=== PATIENT | female | born 1990 | race Hispanic/Latino ===

== ENCOUNTER 2019-02-21 23:20 | Emergency (ER) | payer SELFPAY ==
[2019-02-22] MEDS ORDERED: METHYLPREDNISOLONE 125 MG INJ ONE (00:19)
[2019-02-22] MEDS ORDERED: ALBUTEROL 2.5 MG/3 ML NEB SOL ONE (00:19)
[2019-02-22] MEDS ORDERED: IPRATROPIUM BROM 0.5MG/2.5ML ONE (00:19)
[2019-02-22] MEDS ORDERED: KETOROLAC 30 MG/ML INJ ONE (02:19)
--- NOTE | 2019-02-22 02:23 | ER ---
Nurse's Notes [facility] Name: Maria C Stokes Age: 28 yrs Sex: Female : 1990 Arrival Date: 02/21/2019 Time: 23:22 Bed 18 Private MD: Diagnosis: Asthma;costochondritis Presentation: 02/21 23:59 Presenting complaint: Patient states: she is having difficulty breathing symptoms bb started a couple of hours ago, she used an albuterol inhaler she got in [place] but it is not getting better. Transition of care: patient was not received from another setting of care. Onset of symptoms was February 22, 2019. Risk Assessment: Do you want to hurt yourself or someone else? Patient reports no desire to harm self or others. Initial Sepsis Screen: Does the patient meet any 2 criteria? No. Patient's initial sepsis screen is negative. Does the patient have a suspected source of infection? No. Patient's initial sepsis screen is negative. Care prior to arrival: None. 23:59 Method Of Arrival: Ambulatory bb 23:59 Acuity: JM 3 bb Triage Assessment: 02/22 00:06 General: Appears distressed, uncomfortable, Behavior is calm, cooperative, appropriate cc3 for age. Respiratory: Reports shortness of breath at rest on exertion Onset: The symptoms/episode began/occurred just prior to arrival, the patient has moderate shortness of breath. 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 - Social history:: Smoking status: unknown. - Ebola Screening: : No symptoms or risks identified at this time. Screenin:06 Abuse screen: Denies threats or abuse. Denies injuries from another. Nutritional cc3 screening: No deficits noted. Tuberculosis screening: No symptoms or risk factors identified. Fall Risk Ambulatory Aid- None/Bed Rest/Nurse Assist (0 pts). Gait- Normal/Bed Rest/Wheelchair (0 pts) Mental Status- Oriented to own ability (0 pts). Assessment: 00:06 Pain: Complains of pain in chest. Neuro: Level of Consciousness is awake, alert, obeys cc3 commands, Oriented to person, place, time, situation, Appropriate for age. Cardiovascular: Rhythm is regular. Respiratory: Airway is patent Respiratory effort is labored, Respiratory pattern is symmetrical, Breath sounds with wheezes bilaterally. GI: Abdomen is flat. : No signs and/or symptoms were reported regarding the genitourinary system. EENT: No signs and/or symptoms were reported regarding the EENT system. Derm: No signs and/or symptoms reported regarding the dermatologic system. Musculoskeletal: Circulation, motion, and sensation intact. Range of motion: intact in all extremities. 01:18 Reassessment: Patient appears in no apparent distress at this time. Patient and/or cc3 family updated on plan of care and expected duration. Pain level reassessed. Patient is alert, oriented x 3, equal unlabored respirations, skin warm/dry/pink. 02:40 Reassessment: Patient appears in no apparent distress at this time. Patient and/or cc3 family updated on plan of care and expected duration. Pain level reassessed. Patient is alert, oriented x 3, equal unlabored respirations, skin warm/dry/pink. Dr. Reyes discharged the patient home with prescription given. IV cannula removed and patient left ER vitally stable and ambulatory with her . Vital Signs: 00:02 BP 123 / 90; Pulse 87; Resp 14 S; Temp 98.7(O); Pulse Ox 99% on R/A; bb 01:51 BP 110 / 69; Pulse 103; Resp 20 S; Pulse Ox 98% on R/A; cc3 02:30 BP 112 / 67; Pulse 98; Resp 19 S; Pulse Ox 99% on R/A; cc3 ED Course: 02/21 23:22 Patient arrived in ED. es 02/22 00:01 Parvez Reyes MD is Attending Physician. tw4 00:01 Triage completed. bb 00:02 Arm band placed on Patient placed in an exam room, on a stretcher, on pulse oximetry. bb Family accompanied patient. 00:05 Inserted saline lock: 20 gauge in right antecubital area, using aseptic technique. cc3 00:06 Carrie Avina is Primary Nurse. cc3 00:06 Patient has correct armband on for positive identification. Bed in low position. Call cc3 light in reach. Side rails up X2. residential monitor on. Pulse ox on. NIBP on. 00:46 X-ray completed. Portable x-ray completed in exam room. Patient tolerated procedure kw well. 00:47 CXR XRAY In Process Unspecified. EDMS 02:40 No provider procedures requiring assistance completed. IV discontinued, intact, cc3 bleeding controlled, No redness/swelling at site. Pressure dressing applied. Administered Medications: 00:05 Drug: DuoNeb (3:1) (2.5 mg - 0.5 mg) 3 ml Route: Nebulizer; cc3 00:45 Follow up: Response: No adverse reaction; Marked relief of symptoms cc3 00:10 Drug: SOLU-Medrol 125 mg Route: IVP; Site: right antecubital; cc3 00:45 Follow up: Response: No adverse reaction; Marked relief of symptoms cc3 02:07 Drug: TORadol 30 mg Route: IVP; Site: right antecubital; cc3 02:30 Follow up: Response: No adverse reaction; Pain is decreased cc3 Outcome: 02:23 Discharge ordered by . tw4 02:40 Discharged to home ambulatory, with family. cc3 02:40 Condition: stable 02:40 Discharge instructions given to patient, family, Instructed on discharge instructions, follow up and referral plans. medication usage, Demonstrated understanding of instructions, follow-up care, medications, Prescriptions given X 3. 02:44 Patient left the ED. cc3 Signatures: Dispatcher [employer] EDWA Linette Sheppard Brenda, RN RN Kerri Foster Terrence, MD MD tw4 Carrie Avina cc3 Corrections: (The following items were deleted from the chart) 05:17 02:40 Reassessment: Patient appears in no apparent distress at this time. Patient cc3 and/or family updated on plan of care and expected duration. Pain level reassessed. Patient is alert, oriented x 3, equal unlabored respirations, skin warm/dry/pink. cc3
--- NOTE | 2019-02-22 02:23 | EDPHYS ---
Physician Documentation [facility] Name: Maria C Stokes Age: 28 yrs Sex: Female : 1990 Arrival Date: 02/21/2019 Time: 23:22 Bed 18 Private MD: ED Physician Parvez Reyes HPI: 02/22 06:23 This 28 yrs old Female presents to ER via Ambulatory with complaints of tw4 Breathing Difficulty, Chest Pain, Headache. 06:23 The patient has shortness of breath at rest. Onset: The symptoms/episode began/occurred tw4 today. Duration: The symptoms are continuous, and are unchanged since they started. The patient's shortness of breath has no apparent modifying factors. Severity of symptoms: At their worst the symptoms were moderate in the emergency department the symptoms are unchanged. The patient has not experienced similar symptoms in the past. 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 - Social history:: Smoking status: unknown. - Ebola Screening: : No symptoms or risks identified at this time. ROS: 06:23 Constitutional: Negative for fever, chills, and weight loss, Cardiovascular: Negative tw4 for chest pain, palpitations, and edema, Abdomen/GI: Negative for abdominal pain, nausea, vomiting, diarrhea, and constipation, Back: Negative for injury and pain, MS/Extremity: Negative for injury and deformity, Skin: Negative for injury, rash, and discoloration, Neuro: Negative for headache, weakness, numbness, tingling, and seizure. 06:23 Respiratory: Positive for cough, shortness of breath, wheezing, Negative for hemoptysis, orthopnea, pleurisy. Exam: 06:24 Constitutional: This is a well developed, well nourished patient who is awake, alert, tw4 and in no acute distress. Head/Face: Normocephalic, atraumatic. Eyes: Pupils equal round and reactive to light, extra-ocular motions intact. Lids and lashes normal. Conjunctiva and sclera are non-icteric and not injected. Cornea within normal limits. Periorbital areas with no swelling, redness, or edema. Chest/axilla: Normal chest wall appearance and motion. Nontender with no deformity. No lesions are appreciated. Cardiovascular: Regular rate and rhythm with a normal S1 and S2. No gallops, murmurs, or rubs. Normal PMI, no JVD. No pulse deficits. Abdomen/GI: Soft, non-tender, with normal bowel sounds. No distension or tympany. No guarding or rebound. No evidence of tenderness throughout. Back: No spinal tenderness. No costovertebral tenderness. Full range of motion. MS/ Extremity: Pulses equal, no cyanosis. Neurovascular intact. Full, normal range of motion. Neuro: Awake and alert, GCS 15, oriented to person, place, time, and situation. Cranial nerves II-XII grossly intact. Motor strength 5/5 in all extremities. Sensory grossly intact. Cerebellar exam normal. Normal gait. 06:24 Respiratory: the patient does not display signs of respiratory distress, Respirations: no acute changes, Breath sounds: wheezing: expiratory that is mild, is scattered. Vital Signs: 00:02 BP 123 / 90; Pulse 87; Resp 14 S; Temp 98.7(O); Pulse Ox 99% on R/A; bb 01:51 BP 110 / 69; Pulse 103; Resp 20 S; Pulse Ox 98% on R/A; cc3 02:30 BP 112 / 67; Pulse 98; Resp 19 S; Pulse Ox 99% on R/A; cc3 MDM: 00:01 Patient medically screened. tw4 06:24 Differential diagnosis: Anemia. Antibiotic administration: Not indicated. Data tw4 reviewed: vital signs, nurses notes. Data interpreted: Pulse oximetry: Interpretation: normal. Counseling: I had a detailed discussion with the patient and/or guardian regarding: the historical points, exam findings, and any diagnostic results supporting the discharge/admit diagnosis. Special discussion: I discussed with the patient/guardian in detail that at this point there is no indication for admission to the hospital. It is understood, however, that if the symptoms persist or worsen the patient needs to return immediately for re-evaluation. 02/22 00:01 Order name: CXR XRAY tw4 Administered Medications: 00:05 Drug: DuoNeb (3:1) (2.5 mg - 0.5 mg) 3 ml Route: Nebulizer; cc3 00:45 Follow up: Response: No adverse reaction; Marked relief of symptoms cc3 00:10 Drug: SOLU-Medrol 125 mg Route: IVP; Site: right antecubital; cc3 00:45 Follow up: Response: No adverse reaction; Marked relief of symptoms cc3 02:07 Drug: TORadol 30 mg Route: IVP; Site: right antecubital; cc3 02:30 Follow up: Response: No adverse reaction; Pain is decreased cc3 Disposition: 02/22/19 02:23 Discharged to Home. Impression: Asthma, costochondritis. - Condition is Stable. - Discharge Instructions: Asthma, Acute Bronchospasm, Chest Wall Pain, [id number]. - Prescriptions for Ibuprofen 800 mg Oral Tablet - take 1 tablet by ORAL route every 8 hours As needed take with food; 30 tablet. Medrol (Bhargav) 4 mg Oral Tablets, Dose Pack - take 1 tablet by ORAL route as directed - follow package instructions; 1 packet. Albuterol Sulfate 90 mcg/actuation - inhale 1-2 puff by INHALATION route every 4-6 hours; 1 Inhaler. - Medication Reconciliation Form, Thank You Letter, Antibiotic Education, Prescription Opioid Use, Family Work Release form. - Follow up: Private Physician; When: Upon discharge from the Emergency Department; Reason: If symptoms return, Recheck today's complaints, Continuance of care. - Problem is new. - Symptoms have improved. Signatures: Dispatcher [employer] Inés Marc RN RN bb Wadley, Terrence, MD MD tw4 Carrie Avina cc3 Corrections: (The following items were deleted from the chart) 02:44 02:23 02/22/2019 02:23 Discharged to Home. Impression: Asthma; costochondritis. cc3 Condition is Stable. Forms are Medication Reconciliation Form, Thank You Letter, Antibiotic Education, Prescription Opioid Use. Follow up: Private Physician; When: Upon discharge from the Emergency Department; Reason: If symptoms return, Recheck today's complaints, Continuance of care. Problem is new. Symptoms have improved. tw4
--- NOTE | 2019-02-22 08:33 | RAD REPORT ---
EXAM DESCRIPTION: RAD - Chest Single View - 02/22/2019 12:47 am CLINICAL HISTORY: Shortness of breath COMPARISON: None. TECHNIQUE: AP portable chest image was obtained 0022 hours . FINDINGS: Lungs are clear. Heart and vasculature are normal. No measurable pleural effusion and no p neumothorax. No acute bony abnormality seen. No acute aortic findings suspected. IMPRESSION: No acute cardiopulmonary process.
== END 2019-02-22 02:44 | disposition home or self-care (01) ==
LOC: ER 23:20
DX: J45.909 Unspecified asthma, uncomplicated (principal); M94.0 Chondrocostal junction syndrome [Tietze]
CPT/HCPCS: 71045; 94640; 96374; 96375; 99285; J2930

== ENCOUNTER 2020-02-28 05:18 | Emergency (ER) | payer OTHER, SELFPAY ==
--- NOTE | 2020-02-28 05:43 | ER ---
Nurse's Notes [facility] Name: Maria C Stokes Age: 29 yrs Sex: Female : 1990 Arrival Date: 02/28/2020 Time: 05:21 Bed 13 Private MD: Diagnosis: Urinary tract infection, site not specified;Vaginitis, vulvitis and vulvovaginitis in diseases classified elsewhere Presentation: 02/27 05:34 Chief complaint: Patient states: i have bilateral flank pain and nausea for 2 days. mg2 Coronavirus screen: Patient denies fever greater than 100.4F, cough, shortness of breath, or difficulty breathing. Ebola Screen: No symptoms or risks identified at this time. Initial Sepsis Screen: Does the patient meet any 2 criteria? No. Patient's initial sepsis screen is negative. Does the patient have a suspected source of infection? No. Patient's initial sepsis screen is negative. Risk Assessment: Do you want to hurt yourself or someone else? Patient reports no desire to harm self or others. 05:34 Method Of Arrival: Ambulatory mg2 05:34 Acuity: JM 4 mg2 05:38 Onset of symptoms was February 27, 2020. 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 - Social history:: Smoking status: Patient denies any tobacco usage or history of. Patient/guardian denies using alcohol, street drugs, IV drugs. - Family history:: not pertinent. - Hospitalizations: : No recent hospitalization is reported. Screenin:38 Abuse screen: Denies threats or abuse. Denies injuries from another. Nutritional mg2 screening: No deficits noted. Tuberculosis screening: No symptoms or risk factors identified. Fall Risk None identified. Assessment: 05:37 General: Appears in no apparent distress. comfortable, Behavior is calm, cooperative. mg2 Pain: Complains of pain in bilateral flank. Neuro: Level of Consciousness is awake, alert, obeys commands, Oriented to person, place, time, situation. Cardiovascular: Capillary refill < 3 seconds Patient's skin is warm and dry. Respiratory: Airway is patent Respiratory effort is even, unlabored, Respiratory pattern is regular, symmetrical. GI: No signs and/or symptoms were reported involving the gastrointestinal system. : Reports pain in bilateral flank(s), with urination. EENT: No signs and/or symptoms were reported regarding the EENT system. Derm: Skin is intact, is healthy with good turgor, Skin is pink, warm \T\ dry. normal. Musculoskeletal: Circulation, motion, and sensation intact. Capillary refill < 3 seconds. Vital Signs: 05:34 BP 120 / 74; Pulse 68; Resp 18; Temp 98.2; Pulse Ox 100% on R/A; Weight 65.77 kg; mg2 Height 5 ft. 7 in. (170.18 cm); Pain 6/10; 05:34 Body Mass Index 22.71 (65.77 kg, 170.18 cm) mg2 ED Course: 05:21 Patient arrived in ED. ag3 05:27 Jhonatan Golden, RN is Primary Nurse. mg2 05:28 Richard Cross MD is Attending Physician. rn 05:35 Triage completed. mg2 05:35 Arm band placed on. mg2 05:38 Patient has correct armband on for positive identification. Door closed. mg2 05:38 No provider procedures requiring assistance completed. Patient did not have IV access mg2 during this emergency room visit. Administered Medications: No medications were administered Outcome: 05:42 Discharge ordered by . rn 05:46 Discharged to home ambulatory. mg2 05:46 Condition: stable 05:46 Discharge instructions given to patient, Instructed on discharge instructions, follow up and referral plans. medication usage, Demonstrated understanding of instructions, follow-up care, medications, Prescriptions given X 05:52 Patient left the ED. mg2 Signatures: Richard Cross MD MD rn Gardose, Michele, RN RN mg2 Sue Burger ag3
--- NOTE | 2020-02-28 05:43 | EDPHYS ---
Physician Documentation [facility] Name: Maria C Stokes Age: 29 yrs Sex: Female : 1990 Arrival Date: 02/28/2020 Time: 05:21 Bed 13 Private MD: ED Physician Richard Cross HPI: 02/27 05:34 This 29 yrs old Female presents to ER via Unassigned with complaints of Pain rn With Urination. 05:34 The patient presents with urinary symptoms, dysuria, hematuria. Onset: The rn symptoms/episode began/occurred yesterday. Modifying factors: The symptoms are alleviated by nothing, the symptoms are aggravated by urinating. Associated signs and symptoms: Pertinent positives: dysuria, hematuria, nausea, Pertinent negatives: fever. Severity of symptoms: At their worst the symptoms were mild, in the emergency department the symptoms are unchanged. The patient has experienced similar episodes in the past. The patient has not recently seen a physician. Reports painful urination, noticed a small amount of blood in urine, + nausea. + low back pain. No hx of kidney stones. . 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 - Social history:: Smoking status: Patient denies any tobacco usage or history of. Patient/guardian denies using alcohol, street drugs, IV drugs. - Family history:: not pertinent. - Hospitalizations: : No recent hospitalization is reported. ROS: 05:34 Constitutional: Negative for fever, chills, and weight loss, Eyes: Negative for injury, rn pain, redness, and discharge, Abdomen/GI: + suprapubic abd pain, + nausea Back: + low back pain : + dysuria and hematuria MS/Extremity: Negative for injury and deformity, Neuro: Negative for headache, weakness, numbness, tingling, and seizure. Exam: 05:34 Constitutional: This is a well developed, well nourished patient who is awake, alert, rn and in no acute distress. Abdomen/GI: soft, mild suprapubic tenderness, no rebound or masses Back: No spinal tenderness. No costovertebral tenderness. Full range of motion. Skin: Warm, dry Vital Signs: 05:34 BP 120 / 74; Pulse 68; Resp 18; Temp 98.2; Pulse Ox 100% on R/A; Weight 65.77 kg; mg2 Height 5 ft. 7 in. (170.18 cm); Pain 6/10; 05:34 Body Mass Index 22.71 (65.77 kg, 170.18 cm) mg2 MDM: 05:28 Patient medically screened. rn 05:41 Differential diagnosis: urinary tract infection. Data reviewed: vital signs, nurses rn notes, lab test result(s), and as a result, I will discharge patient. Counseling: I had a detailed discussion with the patient and/or guardian regarding: the historical points, exam findings, and any diagnostic results supporting the discharge/admit diagnosis, lab results, the need for outpatient follow up, to return to the emergency department if symptoms worsen or persist or if there are any questions or concerns that arise at home. Special discussion: I discussed with the patient/guardian in detail that at this point there is no indication for admission to the hospital. It is understood, however, that if the symptoms persist or worsen the patient needs to return immediately for re-evaluation. 05:41 ED course: Pt seems very comfortable, does not seem like kidney stone, afebrile, vitals rn stable, blood likely from UTI, will dc home with abx.. 05:47 ED course: Pt also reports symptoms of vaginal irritation and painful sex, will add rn treatment for vaginitis. . 02/27 05:34 Order name: Urine Culture rn 02/27 05:45 Order name: Urine Dipstick--Ancillary (enter results) 02/27 05:34 Order name: Urine Dipstick-Ancillary (obtain specimen); Complete Time: 05:39 rn 02/27 05:45 Order name: Urine --Ancillary (enter results) 02/27 05:48 Order name: Urine --Ancillary EDDC 02/27 05:48 Order name: Urine Dipstick-Ancillary [facility] 02/27 05:34 Order name: Urine Test (obtain specimen); Complete Time: 05:39 rn Administered Medications: No medications were administered Disposition: 02/28/20 05:42 Discharged to Home. Impression: Urinary tract infection, site not specified, Vaginitis, vulvitis and vulvovaginitis in diseases classified elsewhere. - Condition is Stable. - Discharge Instructions: Urinary Tract Infection, Adult, Vaginitis. - Prescriptions for Cipro 500 mg Oral Tablet - take 1 tablet by ORAL route every 12 hours for 7 days; 14 tablet. Clotrimazole 1 % Vaginal Cream - insert 1 applicatorful by VAGINAL route At bedtime for 7 days; 7 Syringe. Fluconazole 150 mg Oral Tablet - take 1 tablet by ORAL route once daily for 3 days; 3 tablet. - Medication Reconciliation Form, Thank You Letter, Antibiotic Education, Prescription Opioid Use form. - Follow up: Private Physician; When: As needed; Reason: Recheck today's complaints, Re-evaluation by your physician. - Problem is new. - Symptoms have improved. Signatures: Dispatcher [employer] EDMS Richard Cross MD MD rn Gardose, Michele, RN RN mg2 Corrections: (The following items were deleted from the chart) 05:48 05:42 02/28/2020 05:42 Discharged to Home. Impression: Urinary tract infection, site rn not specified. Condition is Stable. Forms are Medication Reconciliation Form, Thank You Letter, Antibiotic Education, Prescription Opioid Use. Follow up: Private Physician; When: As needed; Reason: Recheck today's complaints, Re-evaluation by your physician. Problem is new. Symptoms have improved. rn 05:52 05:48 02/28/2020 05:42 Discharged to Home. Impression: Urinary tract infection, site mg2 not specified; Vaginitis, vulvitis and vulvovaginitis in diseases classified elsewhere. Condition is Stable. Discharge Instructions: Urinary Tract Infection, Adult. Prescriptions for Cipro 500 mg Oral Tablet - take 1 tablet by ORAL route every 12 hours for 7 days; 14 tablet. and Forms are Medication Reconciliation Form, Thank You Letter, Antibiotic Education, Prescription Opioid Use. Follow up: Private Physician; When: As needed; Reason: Recheck today's complaints, Re-evaluation by your physician. Problem is new. Symptoms have improved. rn
[2020-02-28 05:47] LABS: Urine Blood 3+ (NEG); Urine Glucose NEGATIVE (NEG); Urine Protein 2+ (NEG)
[2020-02-28 06:11] VITALS: BP 120/74; TEMP 98.2; O2SAT 100
== END 2020-02-28 05:52 | disposition home or self-care (01) ==
LOC: ER 05:18
DX: N39.0 Urinary tract infection, site not specified (principal); N77.1 Vaginitis, vulvitis and vulvovaginitis in diseases classified elsewhere
CPT/HCPCS: 81003; 81025; 87077; 87086; 87088; 87186; 99282

== ENCOUNTER 2020-05-25 14:56 | Emergency (ER) | payer OTHER ==
--- NOTE | 2020-05-25 17:33 | RAD REPORT ---
EXAM DESCRIPTION: RAD - Chest Single View - 05/25/2020 5:11 pm CLINICAL HISTORY: COUGH COMPARISON: January 2019 TECHNIQUE: AP portable chest image was obtained 05/25/2020 5:11 pm . FINDINGS: Lungs are clear. Heart and vasculature are normal. No measurable pleural effusion and no p neumothorax. No acute bony abnormality seen. No acute aortic findings suspected. IMPRESSION: No acute cardiopulmonary process.
--- NOTE | 2020-05-25 17:37 | ER ---
Nurse's Notes [facility] Name: Maria C Stokes Age: 29 yrs Sex: Female : 1990 Arrival Date: 05/25/2020 Time: 15:01 Bed 16 Private MD: Diagnosis: Acute upper respiratory infection, unspecified Presentation: 05/25 15:09 Chief complaint: Patient states: Fever, body aches since Friday. + cough and SOB today. ll1 Feels hot at home. Coronavirus screen: Surgical mask placed on patient. Patient moved to private room, placed in contact and droplet isolation with eye protection until further assessment. Patient reports a cough. Patient reports shortness of breath or difficulty breathing. Patient denies measured and/or subjective temperature greater than 100.4F prior to today's visit. Patient denies travel on a cruise ship or to a country the [facility] currently lists as an affected area. Patient reports contact with known and/or suspected case of COVID-19. Ebola Screen: Patient denies travel to an Ebola-affected area in the 21 days before illness onset. Initial Sepsis Screen: Does the patient meet any 2 criteria? No. Patient's initial sepsis screen is negative. Risk Assessment: Do you want to hurt yourself or someone else? Patient reports no desire to harm self or others. Onset of symptoms was May 22, 2020. 15:09 Method Of Arrival: Ambulatory 1 15:09 Acuity: JM 3 ll1 Historical: - Allergies: 15:12 No Known Allergies; ll1 - PMHx: 15:12 Asthma; ll1 - PSHx: 15:12 None; ll1 - Immunization history:: Adult Immunizations unknown. - Social history:: Smoking status: Patient denies any tobacco usage or history of. Patient/guardian denies using alcohol, street drugs, tobacco products. Screenin:45 Abuse screen: Denies threats or abuse. Denies injuries from another. Nutritional ph screening: No deficits noted. Tuberculosis screening: No symptoms or risk factors identified. Fall Risk None identified. Assessment: 16:44 General: Appears in no apparent distress. comfortable, Behavior is calm, cooperative, ph appropriate for age, Reports chills for fever for 2-3 days. Pain: Complains of pain in "body aches". Neuro: Level of Consciousness is awake, alert, obeys commands, Oriented to person, place, time, situation. Cardiovascular: Capillary refill < 3 seconds in bilateral fingers Patient's skin is warm and dry. Respiratory: Reports shortness of breath cough that is non-productive, Airway is patent Respiratory effort is even, unlabored, Respiratory pattern is regular, symmetrical. GI: No signs and/or symptoms were reported involving the gastrointestinal system. Derm: Skin is intact, Skin is pink, warm \\T\\ dry. Musculoskeletal: Circulation, motion, and sensation intact. Range of motion: intact in all extremities. 17:59 Reassessment: Patient appears in no apparent distress at this time. Patient and/or ph family updated on plan of care and expected duration. Pain level reassessed. Patient is alert, oriented x 3, equal unlabored respirations, skin warm/dry/pink. Pt d/c home w/ SO, instructed to home quarantine until COVID results received. Vital Signs: 15:09 BP 118 / 88; Pulse 74; Resp 17; Temp 98.2; Pulse Ox 98% ; Pain 8/10; ll1 18:00 BP 112 / 76; Pulse 70; Resp 16; Temp 98.0; Pulse Ox 98% on R/A; ph ED Course: 15:01 Patient arrived in ED. mr 15:11 Triage completed. ll1 15:12 Arm band placed on Patient notified of wait time. ll1 16:22 Mild[facility] Rockwell [facility]C [facility]. kb 16:22 Christiano Florence MD is Attending Physician. kb 16:40 Alondra Spears, RN is Primary Nurse. ph 16:46 Patient has correct armband on for positive identification. Pulse ox on. NIBP on. Door ph closed. Noise minimized. 16:47 No provider procedures requiring assistance completed. Patient did not have IV access ph during this emergency room visit. 17:11 Chest Single View In Process Unspecified. EDMS 05/26 14:52 Health Dept notified/ PUI # [id number] / Genoveva from lab notified. eb Administered Medications: No medications were administered Outcome: 05/25 17:36 Discharge ordered by . kb 18:00 Discharged to home ambulatory, with significant other. ph 18:00 Condition: good 18:00 Discharge instructions given to patient, Instructed on discharge instructions, follow up and referral plans. Demonstrated understanding of instructions, follow-up care. 18:00 Patient left the ED. ph Addendum: 05/28/2020 08:53 Addendum: Other Dr. Cross attempted to contact pt regarding COVID-19 swab results. No d m5 answer. 09:51 Addendum: Other Dr. Cross attempted to contact pt regarding COVID-19 Swab results. No d m5 answer. Signatures: Dispatcher [employer] EDMS Mildred Rockwell, FITTER TYPE BAR AND SEGMENT-C FITTER TYPE BAR AND SEGMENT-Arely Mcneil, RN RN dm5 Charanjit, Akiko Spears, Alondra, RN RN ph Agus, Praveen Dunbar, RN RN ll1 Corrections: (The following items were deleted from the chart) 05/29 11:23 05/28/2020 08:53 Addendum: Other Dr. Bahena attempted to contact pt regarding dm5 COVID-19 swab results. No answer dm5 05/29 11:23 05/28/2020 09:51 Addendum: Other Dr. Bahena attempted to contact pt regarding dm5 COVID-19 Swab results. No answer. dm5
--- NOTE | 2020-05-25 17:37 | EDPHYS ---
Physician Documentation [facility] Name: Maria C Stokes Age: 29 yrs Sex: Female : 1990 Arrival Date: 05/25/2020 Time: 15:01 Bed 16 Private MD: ED Physician Christiano Florence HPI: 05/25 17:30 This 29 yrs old Female presents to ER via Ambulatory with complaints of Cough, kb Shortness Of Breath. 17:30 The patient or guardian reports cough, difficulty breathing, flu symptoms, low-grade kb fever, myalgias. The patient has not experienced similar symptoms in the past. The patient has not recently seen a physician. 17:30 Onset: The symptoms/episode began/occurred 4 day(s) ago. Severity of symptoms: At their kb worst the symptoms were moderate, in the emergency department the symptoms are unchanged. Modifying factors: The symptoms are alleviated by nothing, the symptoms are aggravated by nothing. Associated signs and symptoms: Pertinent positives: fever, Pertinent negatives: chest pain, diarrhea, ear ache, nausea, rhinorrhea, sore throat, vomiting. Pt reports cough, shortness of breath, fever, body aches for 4 days. Someone in household is positive for COVID. Historical: - Allergies: 15:12 No Known Allergies; ll1 - PMHx: 15:12 Asthma; ll1 - PSHx: 15:12 None; ll1 - Immunization history:: Adult Immunizations unknown. - Social history:: Smoking status: Patient denies any tobacco usage or history of. Patient/guardian denies using alcohol, street drugs, tobacco products. ROS: 17:30 ENT: Negative for injury, pain, and discharge, Cardiovascular: Negative for chest pain, kb palpitations, and edema, Abdomen/GI: Negative for abdominal pain, nausea, vomiting, diarrhea, and constipation, Back: Negative for injury and pain, MS/Extremity: Negative for injury and deformity, Skin: Negative for injury, rash, and discoloration, Neuro: Negative for headache, weakness, numbness, tingling, and seizure. 17:30 Constitutional: Positive for body aches, chills, fatigue, fever, malaise. 17:30 Respiratory: Positive for cough, shortness of breath, Negative for dyspnea on exertion, hemoptysis, orthopnea, pleurisy, sputum production, wheezing. Exam: 17:30 Constitutional: This is a well developed, well nourished patient who is awake, alert, kb and in no acute distress. Head/Face: Normocephalic, atraumatic. Chest/axilla: Normal chest wall appearance and motion. Nontender with no deformity. No lesions are appreciated. Cardiovascular: Regular rate and rhythm with a normal S1 and S2. No gallops, murmurs, or rubs. Normal PMI, no JVD. No pulse deficits. Respiratory: Lungs have equal breath sounds bilaterally, clear to auscultation and percussion. No rales, rhonchi or wheezes noted. No increased work of breathing, no retractions or nasal flaring. Abdomen/GI: Soft, non-tender, with normal bowel sounds. No distension or tympany. No guarding or rebound. No evidence of tenderness throughout. Skin: Warm, dry with normal turgor. Normal color with no rashes, no lesions, and no evidence of cellulitis. MS/ Extremity: Pulses equal, no cyanosis. Neurovascular intact. Full, normal range of motion. Neuro: Awake and alert, GCS 15, oriented to person, place, time, and situation. Cranial nerves II-XII grossly intact. Motor strength 5/5 in all extremities. Sensory grossly intact. Cerebellar exam normal. Normal gait. Vital Signs: 15:09 BP 118 / 88; Pulse 74; Resp 17; Temp 98.2; Pulse Ox 98% ; Pain 8/10; ll1 18:00 BP 112 / 76; Pulse 70; Resp 16; Temp 98.0; Pulse Ox 98% on R/A; ph MDM: 16:23 Patient medically screened. kb 17:32 Data reviewed: vital signs, nurses notes. Data interpreted: Pulse oximetry: on room air kb is 98 %. Interpretation: normal. Counseling: I had a detailed discussion with the patient and/or guardian regarding: the historical points, exam findings, and any diagnostic results supporting the discharge/admit diagnosis, lab results, radiology results, the need for outpatient follow up, a family practitioner, to return to the emergency department if symptoms worsen or persist or if there are any questions or concerns that arise at home. 05/25 16:31 Order name: COVID-19 kb 05/25 16:32 Order name: CORONAVIRUS; Complete Time: 08:52 EDIN 05/25 17:10 Order name: Chest Single View; Complete Time: 17:36 EDIN Administered Medications: No medications were administered Disposition: 19:35 Co-signature as Attending Physician, Christiano Florence MD. [email or web address] Disposition: 05/25/20 17:36 Discharged to Home. Impression: Acute upper respiratory infection, unspecified. - Condition is Stable. - Discharge Instructions: Viral Respiratory Infection, [id number], COVID-19. - Medication Reconciliation Form, Thank You Letter, Antibiotic Education, Prescription Opioid Use, Work release form form. - Follow up: Emergency Department; When: As needed; Reason: Worsening of condition. Follow up: Private Physician; When: 2 - 3 days; Reason: Recheck today's complaints, Continuance of care, Re-evaluation by your physician. Addendum: 05/28/2020 08:53 Addendum: Called pt for COVID test results, no answer.. r n 09:50 Addendum: Called again, no answer, voicemail not setup. . r n 14:51 Addendum: Pt returned call, Contacted pt at [phone], notified of positive COVID test, r n answered questions, told health department will contact them with further instructions, patient feeling better. . Signatures: Dispatcher [employer] [facility] Mildred Rockwell, CDL TRUCK DRIVER-C CDL TRUCK DRIVER-Richard Cook MD MD rn Hall, Patricia, RN RN ph Lewis, Lynsay, RN RN [facility] Christiano Florence MD MD [email or web address] Corrections: (The following items were deleted from the chart) 05/25 17:10 16:17 Chest Pa And Lat (2 Views)+RAD.RAD.[email or web address] ordered. [facility] 17:31 17:30 The patient or guardian reports cough, difficulty breathing, flu symptoms, kb low-grade fever, kb 18:00 17:36 05/25/2020 17:36 Discharged to Home. Impression: Acute upper respiratory ph infection, unspecified. Condition is Stable. Forms are Medication Reconciliation Form, Thank You Letter, Antibiotic Education, Prescription Opioid Use. Follow up: Emergency Department; When: As needed; Reason: Worsening of condition. Follow up: Private Physician; When: 2 - 3 days; Reason: Recheck today's complaints, Continuance of care, Re-evaluation by your physician. kb
[2020-05-25 18:17] VITALS: O2SAT 98
[2020-05-25 18:18] VITALS: BP 112/76; TEMP 98
== END 2020-05-25 18:00 | disposition home or self-care (01) ==
LOC: ER 14:56
DX: U07.1 COVID-19 (principal); J06.9 Acute upper respiratory infection, unspecified
CPT/HCPCS: 71045; 99283; U0001

== ENCOUNTER 2020-07-29 06:05 | Emergency (ER) | payer OTHER ==
[2020-07-29 07:28] LABS: Urine Blood 3+ (NEG); Urine Glucose NEGATIVE (NEG); Urine Protein 2+ (NEG); Urine pH 8.5 (5.0-7.0)
[2020-07-29 07:48] LABS: Urine Bacteria >50 /HPF (<20); Urine Culture Reflex Order REFLEXED; Urine RBC 20-50 /HPF (NONE SEEN)
[2020-07-29] MEDS ORDERED: CEFTRIAXONE/SWI 1gm 1 GM/10 ML SYR ONE (08:17)
[2020-07-29] MEDS ORDERED: NA CHLORIDE 0.9% 1,000 ML ONE ×2 (08:17→10:12)
[2020-07-29] MEDS ORDERED: MORPHINE 4 MG/ML SYR ONE (08:17)
[2020-07-29] MEDS ORDERED: ONDANSETRON 4 MG/2 ML VIAL ONE (08:17)
[2020-07-29 08:19] LABS: Basophils % 0.5 % (0-1.3); Hematocrit 40.3 % (36.0-45.0); Lymphocytes % 17.9 % (15.3-44.8); MPV 7.9 fL (7.6-11.3); RBC Red Blood Cell Count 4.68 M/uL (3.86-4.86)
[2020-07-29 08:59] LABS: ALT/SGPT 22 U/L (12-78); AST/SGOT 18 U/L (15-37); Albumin 3.8 g/dL (3.4-5.0); Alkaline Phosphatase 73 U/L (45-117); BUN Blood Urea Nitrogen 25 mg/dL (7-18); Bicarbonate 25 mmol/L (21-32); Bilirubin Direct < 0.1 mg/dL (0-0.2); Bilirubin Total 0.3 mg/dL (0.2-1.0); Glucose Level 102 mg/dL (74-106); Lipase 110 U/L (73-393); Potassium 3.8 mmol/L (3.5-5.1); Protein, Total 8.1 g/dL (6.4-8.2); Sodium Level 137 mmol/L (136-145)
[2020-07-29] MEDS ORDERED: PROMETHAZINE INJ 25 MG/ML AMP ONE (09:33)
[2020-07-29] MEDS ORDERED: HYDROMORPHONE HCL 0.5 MG/0.5 ML INJ ONE ×2 (09:34→10:10)
--- NOTE | 2020-07-29 11:12 | RAD REPORT ---
EXAM DESCRIPTION: CT - Abdomen Pelvis W Contrast - 07/29/2020 10:59 am CLINICAL HISTORY: ABD PAIN, flank pain, dysuria COMPARISON: No comparisons TECHNIQUE: Biphasic, helical CT imaging of the abdomen and pelvis was performed following 100 ml non -ionic IV contrast. No oral contrast. All CT scans are performed using dose optimization technique as appropriate and may include automated exposure control or mA/KV adjustment according to patient size. FINDINGS: No suspicious findings in the lung bases. The liver, spleen, and pancreas show no suspicious findings. Gallbladder and biliary tree are also wi thout suspicious finding. Normal enhancement of the renal parenchyma identified. No pyelonephritis can't be confirmed at this t jose. No solid mass of either kidney. No abnormal perinephric stranding seen. No obstructing or nonobs tructing calculi. No hydronephrosis is present. There is mild thickening of the brown of the right ur eter which is more prominent relative to the left. Bladder wall appears thickened for the amount of d istention. No focal mass. No bladder calculus identified. No adrenal abnormalities. Normal size uterus present. IUD is in place appearing properly positioned. No primary ovarian process seen. No dilated bowel loops or bowel wall thickening. Appendix is not optimally visualized. Appendicitis i s not suspected. Patient has moderate stool volume filling but not dilating the colon. No free air or pneumatosis. Physiologic quantity of free fluid seen in the lower right pelvis. No hernia, mass or bulky lymphadenopathy. No suspicious bony findings. IMPRESSION: Cystitis and right ureteritis findings are evident and can be correlated with clinical a nd laboratory findings. Renal parenchyma shows normal enhancement. No pyelonephritis confirmed at this time. No acute GI process identifiable. Moderately large stool volume fills the colon.
--- NOTE | 2020-07-29 11:48 | EDPHYS ---
Physician Documentation [facility] Name: Maria C Stokes Age: 30 yrs Sex: Female : 1990 Arrival Date: 07/29/2020 Time: 06:07 Bed 18 Private MD: ED Physician Tim Fisher HPI: 07/29 08:44 This 30 yrs old Female presents to ER via Ambulatory with complaints of Low ma2 Back Pain. 08:44 The symptoms are located in the right flank. The pain does not radiate. Onset: The ma2 symptoms/episode began/occurred gradually, 6 day(s) ago. Associated signs and symptoms: The patient has no apparent associated signs or symptoms. Severity of symptoms: At their worst the symptoms were moderate, in the emergency department the symptoms are unchanged. The patient has not experienced similar symptoms in the past. 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 jb4 Historical: - Allergies: 06:25 No Known Allergies; jb4 - Home Meds: 06:25 None [Active]; jb4 - PMHx: 06:25 Asthma; jb4 - PSHx: 06:25 asthma; jb4 - Immunization history:: Adult Immunizations up to date. - Social history:: Smoking status: Patient denies any tobacco usage or history of. Patient uses alcohol, only on a social basis. Patient/guardian denies using street drugs, Patient/guardian denies using alcohol, The patient lives with family. - Family history:: not pertinent. ROS: 08:44 Constitutional: Negative for fever, chills, and weight loss. ma2 08:44 All other systems are negative. Exam: 08:44 Constitutional: This is a well developed, well nourished patient who is awake, alert, ma2 and in no acute distress. Chest/axilla: Normal chest wall appearance and motion. Nontender with no deformity. No lesions are appreciated. Cardiovascular: Regular rate and rhythm with a normal S1 and S2. No gallops, murmurs, or rubs. Normal PMI, no JVD. No pulse deficits. Respiratory: Lungs have equal breath sounds bilaterally, clear to auscultation and percussion. No rales, rhonchi or wheezes noted. No increased work of breathing, no retractions or nasal flaring. Abdomen/GI: Soft, non-tender, with normal bowel sounds. No distension or tympany. No guarding or rebound. No evidence of tenderness throughout. Back: No spinal tenderness. No costovertebral tenderness. Full range of motion. Skin: Warm, dry with normal turgor. Normal color with no rashes, no lesions, and no evidence of cellulitis. MS/ Extremity: Pulses equal, no cyanosis. Neurovascular intact. Full, normal range of motion. Neuro: Awake and alert, GCS 15, oriented to person, place, time, and situation. Cranial nerves II-XII grossly intact. Motor strength 5/5 in all extremities. Sensory grossly intact. Cerebellar exam normal. Normal gait. Vital Signs: 06:25 BP 125 / 79; Pulse 84; Resp 16; Temp 98.4(O); Pulse Ox 99% on R/A; Weight 68.95 kg (R); jb4 Height 5 ft. 7 in. (170.18 cm) (R); Pain 10/10; 07:00 BP 117 / 75; Pulse 82; Resp 18; Pulse Ox 99% on R/A; em 09:02 BP 122 / 72; Pulse 62; Resp 18; Pulse Ox 97% on R/A; Pain 8/10; em 09:54 BP 122 / 72; Pulse 94; Resp 20; Temp 97.8(O); Pain 6/10; em 11:30 BP 109 / 66; Pulse 76; Resp 18; Pulse Ox 99% on R/A; em 06:25 Body Mass Index 23.81 (68.95 kg, 170.18 cm) jb4 MDM: 07:08 Patient medically screened. ma2 08:44 Differential diagnosis: arthritis, strain, contusion, UTI. ma2 11:47 Data reviewed: vital signs, nurses notes. Counseling: I had a detailed discussion with ma2 the patient and/or guardian regarding: the historical points, exam findings, and any diagnostic results supporting the discharge/admit diagnosis, the presence of at least one elevated blood pressure reading (>120/80) during this emergency department visit, the need for outpatient follow up. Response to treatment: the patient's symptoms have markedly improved after treatment. 07/29 07:02 Order name: Urine Microscopic Only; Complete Time: 09:23 vc 07/29 07:05 Order name: Urine Dipstick--Ancillary (enter results); Complete Time: 09:23 eb 07/29 07:05 Order name: Urine --Ancillary (enter results); Complete Time: 09:23 eb 07/29 07:24 Order name: BMP; Complete Time: 09:23 ma2 07/29 07:24 Order name: CBC with Diff; Complete Time: 09:23 ma2 07/29 07:24 Order name: Hepatic Function; Complete Time: 09:23 ma2 07/29 07:24 Order name: Lipase; Complete Time: 09:23 ma2 07/29 07:49 Order name: Urine Culture EDMS 07/29 10:11 Order name: CT Abd/Pelvis - IV Contrast Only; Complete Time: 11:47 ma2 07/29 06:45 Order name: Urine Dipstick-Ancillary (obtain specimen); Complete Time: 07:02 cp 07/29 06:45 Order name: Urine Test (obtain specimen); Complete Time: 07:02 cp 07/29 07:24 Order name: IV Saline Lock; Complete Time: 08:15 ma2 07/29 07:24 Order name: Labs collected and sent; Complete Time: 08:15 ma2 07/29 07:24 Order name: NPO; Complete Time: 08:15 ma2 Administered Medications: 08:10 Drug: Zofran (Ondansetron) 4 mg Route: IVP; Site: right antecubital; em 09:00 Follow up: Response: No adverse reaction em 08:10 Drug: NS 0.9% 1000 ml Route: IV; Rate: 1000 ml; Site: right antecubital; em 10:30 Follow up: IV Status: Completed infusion; IV Intake: 1000ml em 08:12 Drug: morphine 4 mg Route: IVP; Site: right antecubital; em 09:00 Follow up: Response: No adverse reaction; Marked relief of symptoms; Pain is decreased em 08:14 Drug: Rocephin 1 grams Route: IV; Rate: calculated rate; Site: right antecubital; em 08:30 Follow up: Response: No adverse reaction; IV Status: Completed infusion; IV Intake: 10mlem 08:16 Not Given (Other Intervention Used): Rocephin 1 grams IV at calculated rate once; Given em slow IV push per pharmacy instructions 09:27 Drug: Phenergan 25 mg Route: IVP; Site: right antecubital; em 09:55 Follow up: Response: No adverse reaction; Marked relief of symptoms; Nausea is decreasedem 09:29 Not Given (Other Intervention Used): Dilaudid 1 mg IVP once; RASS on ADMIN: Combtv4, em Very Agttd3, Agttd2, Rstlss1, AlertClm0, Drwsy-1, Lt Sdtn-2, Mod Sdtn-3, Dp Sdtn-4, UnArsble-5 09:29 Drug: Dilaudid 0.5 mg Route: IVP; Site: right antecubital; em 09:55 Follow up: Response: No adverse reaction; Pain is decreased; RASS: Drowsy (-1) em 10:04 Drug: Dilaudid 0.5 mg Route: IVP; Site: right antecubital; em 11:31 Follow up: Response: No adverse reaction; Marked relief of symptoms; Pain is decreased; em RASS: Alert and Calm (0) 10:04 Drug: NS 0.9% 1000 ml Route: IV; Rate: 1 bolus; Site: right antecubital; em 12:07 Follow up: IV Status: Completed infusion; IV Intake: 1000ml em Disposition: 07/29/20 11:47 Discharged to Home. Impression: Chronic obstructive pyelonephritis - acute. not chronic. - Condition is Stable. - Discharge Instructions: Pyelonephritis, Adult. - Prescriptions for Diclofenac Sodium 75 mg Oral Tablet Sustained Release - take 1 tablet by ORAL route 2 times per day; 30 tablet. Bactrim DS 800- 160 mg Oral Tablet - take 1 tablet by ORAL route every 12 hours for 14 days; 20 tablet. - Medication Reconciliation Form, Thank You Letter, Antibiotic Education, Prescription Opioid Use form. - Follow up: Private Physician; When: Tomorrow; Reason: Continuance of care. Signatures: Dispatcher [employer] Leo Sosa RN RN em Eduardo Crum PA PA cp Bryson, James, RN RN jb4 Tim Fisher MD MD ma2 Corrections: (The following items were deleted from the chart) 12:08 11:47 07/29/2020 11:47 Discharged to Home. Impression: Chronic obstructive em pyelonephritis - acute. not chronic. Condition is Stable. Prescriptions for Diclofenac Sodium 75 mg Oral Tablet Sustained Release - take 1 tablet by ORAL route 2 times per day; 30 tablet, Bactrim DS 800-160 mg Oral Tablet - take 1 tablet by ORAL route every 12 hours for 14 days; 20 tablet. and Forms are Medication Reconciliation Form, Thank You Letter, Antibiotic Education, Prescription Opioid Use. Follow up: Private Physician; When: Tomorrow; Reason: Continuance of care. ma2
--- NOTE | 2020-07-29 11:48 | ER ---
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 It jb4 started at 2 a.m and steadily has gotten worse. [facility], they gave me a prescription but never called it in. Now my urine has a foul odor when I pee, and the pain in my back is so bad. 06:25 Coronavirus screen: Client denies travel out of the [place] in the last 14 days. At this jb4 time, the client does not indicate any symptoms associated with coronavirus-19. Ebola Screen: No symptoms or risks identified at this time. Initial Sepsis Screen: Does the patient meet any 2 criteria? No. Patient's initial sepsis screen is negative. Does the patient have a suspected source of infection? Yes: Dysuria/Frequency/Urgency/UTI. Risk Assessment: Do you want to hurt yourself or someone else? Patient reports no desire to harm self or others. Onset of symptoms was July 29, 2020. Transition of care: patient was not received from another setting of care. 06:25 Method Of Arrival: Ambulatory jb4 06:25 Acuity: JM 3 jb4 EAP COUNSELOR: 06:25 PT reports not having a period due to IUD. jb4 Historical: - Allergies: 06:25 No Known Allergies; jb4 - Home Meds: 06:25 None [Active]; jb4 - PMHx: 06:25 Asthma; jb4 - PSHx: 06:25 asthma; jb4 - Immunization history:: Adult Immunizations up to date. - Social history:: Smoking status: Patient denies any tobacco usage or history of. Patient uses alcohol, only on a social basis. Patient/guardian denies using street drugs, Patient/guardian denies using alcohol, The patient lives with family. - Family history:: not pertinent. Screenin:25 Abuse screen: Denies threats or abuse. Nutritional screening: No deficits noted. jb4 Tuberculosis screening: No symptoms or risk factors identified. Fall Risk None identified. Assessment: 06:25 General: Appears in no apparent distress. uncomfortable, Behavior is calm, cooperative, jb4 appropriate for age. Pain: Complains of pain in right low back Pain does not radiate. Pain currently is 10 out of 10 on a pain scale. Quality of pain is described as dull, pressure. Neuro: Level of Consciousness is awake, alert, obeys commands, Oriented to person, place, time, situation. Cardiovascular: Patient's skin is warm and dry. Respiratory: Airway is patent Respiratory effort is even, unlabored, Respiratory pattern is regular, symmetrical. GI: No signs and/or symptoms were reported involving the gastrointestinal system. : No signs and/or symptoms were reported regarding the genitourinary system. EENT: No signs and/or symptoms were reported regarding the EENT system. Derm: Skin is intact, Skin is pink, warm \T\ dry. Musculoskeletal: Circulation, motion, and sensation intact. Range of motion: intact in all extremities. 08:10 Reassessment: Patient appears in no apparent distress at this time. Patient and/or em family updated on plan of care and expected duration. Pain level reassessed. Patient is alert, oriented x 3, equal unlabored respirations, skin warm/dry/pink. rates pain 8/10. 09:53 Reassessment: Patient appears in no apparent distress at this time. Patient and/or em family updated on plan of care and expected duration. Pain level reassessed. Patient is alert, oriented x 3, equal unlabored respirations, skin warm/dry/pink. rates pain 6/10. 11:29 Reassessment: Patient appears in no apparent distress at this time. Patient and/or em family updated on plan of care and expected duration. Pain level reassessed. Patient is alert, oriented x 3, equal unlabored respirations, skin warm/dry/pink. Vital Signs: 06:25 BP 125 / 79; Pulse 84; Resp 16; Temp 98.4(O); Pulse Ox 99% on R/A; Weight 68.95 kg (R); jb4 Height 5 ft. 7 in. (170.18 cm) (R); Pain 10/10; 07:00 BP 117 / 75; Pulse 82; Resp 18; Pulse Ox 99% on R/A; em 09:02 BP 122 / 72; Pulse 62; Resp 18; Pulse Ox 97% on R/A; Pain 8/10; em 09:54 BP 122 / 72; Pulse 94; Resp 20; Temp 97.8(O); Pain 6/10; em 11:30 BP 109 / 66; Pulse 76; Resp 18; Pulse Ox 99% on R/A; em 06:25 Body Mass Index 23.81 (68.95 kg, 170.18 cm) jb4 ED Course: 06:07 Patient arrived in ED. cf2 06:25 Arm band placed on. jb4 06:25 Patient has correct armband on for positive identification. Bed in low position. Call jb4 light in reach. Side rails up X 1. Pulse ox on. NIBP on. 06:37 Triage completed. jb4 07:08 Tim Fisher MD is Attending Physician. ma2 07:38 Leo Stone RN is Primary Nurse. em 08:08 Inserted saline lock: 20 gauge in right antecubital area, using aseptic technique. ss Blood collected. 10:59 CT Abd/Pelvis - IV Contrast Only In Process Unspecified. EDMS 12:06 No provider procedures requiring assistance completed. IV discontinued, intact, em bleeding controlled, No redness/swelling at site. Pressure dressing applied. Administered Medications: 08:10 Drug: Zofran (Ondansetron) 4 mg Route: IVP; Site: right antecubital; em 09:00 Follow up: Response: No adverse reaction em 08:10 Drug: NS 0.9% 1000 ml Route: IV; Rate: 1000 ml; Site: right antecubital; em 10:30 Follow up: IV Status: Completed infusion; IV Intake: 1000ml em 08:12 Drug: morphine 4 mg Route: IVP; Site: right antecubital; em 09:00 Follow up: Response: No adverse reaction; Marked relief of symptoms; Pain is decreased em 08:14 Drug: Rocephin 1 grams Route: IV; Rate: calculated rate; Site: right antecubital; em 08:30 Follow up: Response: No adverse reaction; IV Status: Completed infusion; IV Intake: 10mlem 08:16 Not Given (Other Intervention Used): Rocephin 1 grams IV at calculated rate once; Given em slow IV push per pharmacy instructions 09:27 Drug: Phenergan 25 mg Route: IVP; Site: right antecubital; em 09:55 Follow up: Response: No adverse reaction; Marked relief of symptoms; Nausea is decreasedem 09:29 Not Given (Other Intervention Used): Dilaudid 1 mg IVP once; RASS on ADMIN: Combtv4, em Very Agttd3, Agttd2, Rstlss1, AlertClm0, Drwsy-1, Lt Sdtn-2, Mod Sdtn-3, Dp Sdtn-4, UnArsble-5 09:29 Drug: Dilaudid 0.5 mg Route: IVP; Site: right antecubital; em 09:55 Follow up: Response: No adverse reaction; Pain is decreased; RASS: Drowsy (-1) em 10:04 Drug: Dilaudid 0.5 mg Route: IVP; Site: right antecubital; em 11:31 Follow up: Response: No adverse reaction; Marked relief of symptoms; Pain is decreased; em RASS: Alert and Calm (0) 10:04 Drug: NS 0.9% 1000 ml Route: IV; Rate: 1 bolus; Site: right antecubital; em 12:07 Follow up: IV Status: Completed infusion; IV Intake: 1000ml em Intake: 08:30 IV: 10ml; Total: 10ml. em 10:30 IV: 1000ml; Total: 1010ml. em 12:07 IV: 1000ml; Total: 2010ml. em Outcome: 11:47 Discharge ordered by MD. marsh 12:06 Discharged to home ambulatory. em 12:06 Condition: good 12:06 Discharge instructions given to patient, Instructed on discharge instructions, follow up and referral plans. medication usage, Demonstrated understanding of instructions, follow-up care, medications, Prescriptions given X 2. 12:08 Patient left the ED. em Addendum: 08/01/2020 09:09 Addendum: Culture Results: Positive urine culture. No further action required. Bacteria a a5 sensitive to prescribed antibiotic. Signatures: Dispatcher [employer] Leo Sosa RN RN em Calderon, Audri, RN RN aa5 Rosalba Humphries RN RN ss Bryson, James, RN RN jb4 Tim Fisher MD MD ma2 Frazier, Celesta cf2
[2020-08-01 23:59] VITALS: TEMP 97.8
[2020-08-02] VITALS: BP 109/66; O2SAT 99
== END 2020-07-29 12:08 | disposition home or self-care (01) ==
LOC: ER 06:05
DX: N10 Acute pyelonephritis (principal)
CPT/HCPCS: 96365; 96361; 87088; 85025; 87086; 80048; 36415; 81025; 80076; 87077; 87186; 83690; 74177; 96375; 99284; Q9967; J2550; J1170 ×2; J0696; J7030 ×2; J2405; 81003; 81015

== ENCOUNTER 2020-12-30 12:36 | Emergency (ER) | payer OTHER ==
--- OUTSIDE RECORDS SUMMARY | 2020-12-30 12:38 | XMS REPORT | Continuity of Care Document ---
:1990 Author Organization [facility] Address [address] [place] [address] Care Team Providers Name Role Phone Lab Attending Clinician Unavailable Problems This patient has no known problems. Allergies, Adverse Reactions, Alerts This patient has no known allergies or adverse reactions. Medications This patient has no known medications. Procedures This patient has no known procedures. Encounters Start End Encounter Admission Attending Care Care Encounter Source Date/Time Date/Time Type Type Clinicians Facility Department ID 2020-12-25 2020-12-25 Ripening Room Operator Lab, [facility] [id number] 08:23:26 08:36:26 Visit Dmitri-xavi SWINGING CUT OFF SAW OPERATOR [id number] [facility] [id number] MATERNAL [id number] & CHILD [address] [place] [address] Results This patient has no known results.
--- OUTSIDE RECORDS SUMMARY | 2020-12-30 12:39 | XMS REPORT | Summary of Care ---
:1990 Author Organization [facility] Address [address] [place] [address] Care Team Providers Name Role Phone Glenys Cisneros [facility] Primary Care Provider Reason for Visit Reason Comments LAB Encounter Details Date Type Department Care Team Description 12/25/2020 Foot Gatherer Visit [facility] Tao Cisneros, [facility] [address] [place] [address] Supervision of [facility] Lab, [facility] risk , [address] [place] [address] Allergies No Known Allergiesdocumented as of this encounter (statuses as of 12/25/2020) Medications Medication Sig Dispensed Refills Start Date End Date Status vit Take 2 tablets by 0 Active calc,iron,folic mouth daily. ( VITAMIN ORAL) documented as of this encounter (statuses as of 12/25/2020) Active Problems Problem Noted Date Supervision of high-risk 12/22/2020 Over weight 12/22/2020 Vaginal discharge 12/22/2020 Estimated Date of Delivery Comments Yes 06/07/2021 Based on last menstr ual period of 08/31/2020 (Exact Date) documented as of this encounter (statuses as of 12/25/2020) Social History Tobacco Use Types Packs/Day Years Used Date Never Smoker Smokeless Tobacco: Never Used Alcohol Use Drinks/Week oz/Week Comments Not Currently Estimated Date of Delivery Comments Yes 06/07/2021 Based on last menstr ual period of 08/31/2020 (Exact Date) Sex Assigned at Date Recorded Not on file COVID-19 Exposure Response Date Recorded In the last month, have you been in contact with No / Unsure 12/22/2020 4:08 PM ACQUISITION ASSOCIATE someone who was confirmed or suspected to have Coronavirus / COVID-19? documented as of this encounter Last Filed Vital Signs Not on filedocumented in this encounter Plan of Treatment Date Type Specialty Care Team Description 01/19/2021 Routine Visit OB Satellites Digna Cisneros, CNP [address] [place], [place] [address] [phone] Name Type Priority Associated Diagnoses Date/Ti me CBC WITH DIFF LAB Routine Supervision of high risk 9:40 AM ACQUISITION ASSOCIATE , antepartum HEPATITIS B SURFACE LAB Routine Supervision of high r isk 12/25/2020 9:40 AM ACQUISITION ASSOCIATE ANTIGEN , antepartum HIV 1/2 AG-AB WITH LAB Routine Supervision of high ri sk 12/25/2020 9:40 AM ACQUISITION ASSOCIATE REFLEX , antepartum RUBELLA SCREEN (FEI) LAB Routine Supervision of hig h risk 12/25/2020 9:40 AM ACQUISITION ASSOCIATE IGG , antepartum GALV ONLY - SYPHILIS LAB Routine Supervision of high risk 12/25/2020 9:40 AM ACQUISITION ASSOCIATE IGG/IGM , antepartum VZV ANTIBODY SCREEN LAB Routine Supervision of high r isk 12/25/2020 9:40 AM ACQUISITION ASSOCIATE , antepartum QUAD SCRN LAB Routine Supervision of high risk 9:40 AM ACQUISITION ASSOCIATE , antepartum GLUCOSE 1 HOUR POST LAB Routine Supervision of high r isk 12/25/2020 9:40 AM ACQUISITION ASSOCIATE PRANDIAL , antepartum Health Maintenance Due Date Last Done Comments DTaP,Tdap,and Td Vaccines (1 - 02/28/2021 P ostponed from 2009 Tdap) (Alternative Howard delines) INFLUENZA VACCINE (#1) 2021 Postponed from 08/01/2020 (Refused) Depression Screening 12/22/2021 12/22/2020 VARICELLA VACCINES (1 of 2 - 12/22/2021 Pos tponed from 1991 2-dose childhood series) (Pregna nt or ) PAP SMEAR 10/31/2023 10/31/2020 PNEUMOCOCCAL 0-64 YEARS COMBINED Aged Out No longer eligible based on SERIES patient's age to complete this topic documented as of this encounter Results Not on filedocumented in this encounter Visit Diagnoses Diagnosis Supervision of high risk , ante documented in this encounter Insurance Payer Benefit Plan / Subscriber ID Effective Phone Address T ype Group Dates MEDICAID MEDICAID PENDING 2020-[address] [place] [address] documented as of this encounter
--- OUTSIDE RECORDS SUMMARY | 2020-12-30 12:39 | XMS REPORT | Summary of Care ---
:1990 Author Organization [facility] - Health Address [address] [place] [address] Care Team Providers Name Role Phone Glenys Cisneros [facility] Primary Care Provider Encounter Details Date Type Department Care Team Description 12/22/2020 Orders Only [facility] 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, No [address] [facility] [place] [address] [address] [place] [address] Allergies No Known Allergiesdocumented as of this [...] with No / Unsure 12/22/2020 4:08 PM LABORER DEMOLITION someone who was confirmed or suspected to have Coronavirus / COVID-19? documented as of this encounter Last Filed Vital Signs Not on filedocumented in this encounter Plan of Treatment Date Type Specialty Care Team Description 01/19/2021 Routine Visit OB Satellites Digna Cisneros, CNP [address] [place], [place] [address] [phone] Health Maintenance Due Date Last Done Comments [...] this topic documented as of this encounter Procedures Procedure Name Priority Date/Time Associated Diagnosis Comme nts REPORT OF Routine 12/22/2020 12:01 AM LABORER DEMOLITION documented in this encounter Results Not on filedocumented in this encounter Insurance Payer Benefit Plan / Subscriber ID Effective Phone Address T ype Group Dates MEDICAID MEDICAID PENDING 2020-Pres [address] [place] [address] [place] [address] documented as of this encounter
--- OUTSIDE RECORDS SUMMARY | 2020-12-30 12:39 | XMS REPORT | Summary of Care ---
:1990 Author Organization [facility] Address [address] [place] [id number] Care Team Providers Name Role Phone Glenys Cisneros [facility] Primary Care Provider Reason for Visit Reason Comments LAB Encounter Details Date Type Department Care Team Description 12/25/2020 School Inspector Visit [facility] Tao Cisneros, [facility] [address] [place] [address] Supervision of [facility] Lab, [facility] risk , [address] [place] [address] Allergies No Known Allergiesdocumented as [...] with No / Unsure 12/22/2020 4:08 PM TEST ARCHITECT someone who was confirmed or suspected to have Coronavirus / COVID-19? documented as of this encounter Last Filed Vital Signs Not on filedocumented in this encounter Plan of Treatment Date Type Specialty Care Team Description 01/19/2021 Routine Visit OB Satellites Digna Cisneros, WHCNP [address] [place], [place] [address] [phone] Health Maintenance Due Date Last Done Comments [...] ype Group Dates MEDICAID MEDICAID PENDING 2020-Pres [address] [place] [address] [place] [address] [address] documented as of this encounter
--- OUTSIDE RECORDS SUMMARY | 2020-12-30 12:39 | XMS REPORT | Summary of Care ---
:1990 Author Organization [facility] Address [address] [place] [address] Care Team Providers Name Role Phone Glenys Cisneros Primary Care Provider Reason for Visit Reason Comments Initial Visit Encounter Details Date Type Department Care Team Description 12/22/[address] [facility] vision of high risk , antepartum (Primary Dx); Visit LORENA Lopez Over weight; [address] Vagina l discharge [place], [place] [address] [place], [place] [phone] [id number] Allergies No Known Allergiesdocumented as of this encounter (statuses as of 12/22/2020) Medications Medication Sig Dispensed Refills Start Date End Date Status vit Take 2 tablets by 0 Active calc,iron,folic mouth daily. ( VITAMIN ORAL) documented as of this encounter (statuses as of 12/22/2020) Active Problems Problem Noted Date Supervision of high-risk 12/22/2020 Over weight 12/22/2020 Vaginal discharge 12/22/2020 Estimated Date of Delivery Comments Yes 06/07/2021 Based on last menstr ual period of 08/31/2020 (Exact Date) documented as of this encounter (statuses as of 12/22/2020) Social History Tobacco Use Types Packs/Day Years [...] with No / Unsure 12/22/2020 4:08 PM DIRECTOR BUSINESS TRAVEL someone who was confirmed or suspected to have Coronavirus / COVID-19? documented as of this encounter Last Filed Vital Signs Vital Sign Reading Time Taken Comments Blood Pressure 98/64 12/22/2020 4:07 PM DIRECTOR BUSINESS TRAVEL Pulse 75 12/22/2020 4:07 PM DIRECTOR BUSINESS TRAVEL Temperature 36.7 C (98 F) 12/22/2020 4:07 PM DIRECTOR BUSINESS TRAVEL Respiratory Rate 16 12/22/2020 4:07 PM DIRECTOR BUSINESS TRAVEL Oxygen Saturation - - Inhaled Oxygen Concentration - - Weight 74.4 kg (164 lb) 12/22/2020 4:07 PM DIRECTOR BUSINESS TRAVEL Height 170.2 cm (5' 7") 12/22/2020 4:07 PM DIRECTOR BUSINESS TRAVEL Body Mass Index 25.69 12/22/2020 4:07 PM DIRECTOR BUSINESS TRAVEL documented in this encounter Progress Notes Rosamaria Cisneros, WHCNP - 12/22/2020 3:30 PM CST Chief complaint: Chief Complaint Patient presents with Initial Visit HPI CC: Initial Visit Maria C Stokes is a 30 year old, , /White female. Patient's last menstrual period was 08/31/2020 (exact date). She is 16w1d with an suspected IUP. Her Estimated Date of Delivery: 06/07/21. She is being seen today for her first obstetrical visit. She has no complaints today. OB History Para Term AB Living 1 SAB TAB Ectopic Multiple Live Births # Outcome Date GA Lbr Suleiman/2nd Weight Sex Delivery Anes PTL Lv 1 Current Histories OB History Para Term AB Living 1 SAB TAB Ectopic Multiple Live Births # Outcome Date GA Lbr Suleiman/2nd Weight Sex Delivery Anes PTL Lv 1 Current History reviewed. No pertinent past medical history. Family History Problem Relation Age of Onset Cancer Paternal Grandfather Family Status Relation Name Status PGFa Alive History reviewed. No pertinent surgical history. Social History Socioeconomic History Marital status: Single Spouse name: Not on file Number of children: Not on file Years of education: Not on file Highest education level: Not on file Occupational History Not on file Social Needs Financial resource strain: Not on file Food insecurity Worry: Not on file Inability: Not on file Transportation needs Medical: Not on file Non-medical: Not on file Tobacco Use Smoking status: Never Smoker Smokeless tobacco: Never Used Substance and Sexual Activity Alcohol use: Not Currently Drug use: Never Sexual activity: Yes Partners: Male control/protection: None Comment: Last intercourse, 12/01/2020 Lifestyle Physical activity Days per week: Not on file Minutes per session: Not on file Stress: Not on file Relationships Social connections Talks on phone: Not on file Gets together: Not on file Attends sikh service: Not on file Active member of club or organization: Not on file Attends meetings of clubs or organizations: Not on file Relationship status: Not on file Intimate partner violence Fear of current or ex partner: Not on file Emotionally abused: Not on file Physically abused: Not on file Forced sexual activity: Not on file Other Topics Concern Not on file Social History Narrative Lives with a friend Dog Feels safe at home Social History Substance and Sexual Activity Sexual Activity Yes Partners: Male control/protection: None Comment: Last intercourse, 12/01/2020 Genetic Screen Autism / Mental Retardation: No Gabby Disease: No Congenital Heart Defect: No Cystic Fibrosis: No Down Syndrome: No Familial Dysautonomia: No Hemophilia or other Blood Disorders: No Dalton Chorea: No Maternal Metabolic Disorder--specify (eg. Type 1 Diabetes, PKU): No Muscular Dystrophy: No Neural Tube Defect: No Recurrent Loss or a Stillbirth: No Sickle Cell Disease or Trait: No Praneeth Sachs: No Teratological Substances (specify type & strength/dose) since LMP: No Thalassemia: No Other Inherited Genetic or Chromosomal Disorder (specify): No Labs Labs are pending. and No visits with results within 3 Month(s) from this visit. Latest known visit with results is: No results found for any previous visit. Radiology No new radiology. Allergies Maria C has No Known Allergies. Medications Maria C has a current medication list which includes the following prescription(s): vit calc,iron,folic. Review of Systems Constitutional: Negative. HENT: Negative. Eyes: Negative. Respiratory: Negative. Breasts: Negative. Cardiovascular: Negative. Gastrointestinal: Negative. Genitourinary: Negative. Musculoskeletal: Negative. Skin: Negative. Neurological: Negative. Psychiatric/Behavioral: Negative. Endocrine: Endocrine negative BP 98/64 (BP Location: Right arm, Patient Position: Sitting, BP CUFF SIZE: Adult Medium) | Pulse 75 | Temp 36.7 C (98 F) (Oral) | Resp 16 | Ht 5' 7" (1.702 m) | Wt 164 lb (74.4 kg) | LMP 08/31/2020 (Exact Date) | BMI 25.69 kg/m Pregravid BMI: 25.68 Physical Exam Vitals reviewed. Constitutional: She is oriented to person, place, and time. She appears well- developed and well-nourished. Her body habitus is normal. Neck: No tenderness and no mass. No thyroid nodules and no thyromegaly palpated. No neck adenopathy. Cardiovascular: Regular rate and rhythm. No gallop, no friction rub and no murmur auscultated. No peripheral edema present. Pulmonary/Chest: Breath sounds clear to auscultation. Normal inspiratory effort. Abdominal: Abdomen is soft. No mass palpated. No tenderness present. There is no hepatosplenomegaly,splenomegaly or hepatomegaly. There is no rigidity. No hernia palpated or inspected. Neuro/Psychiatric: She has a normal mood and affect. She is oriented to person, place, and time. Skin: No lesion, no rash and no ulceration present. Lymphadenopathy: No neck adenopathy present. No axillary adenopathy present. No inguinal adenopathy present. Breast: Right breast exhibits no mass, no nipple discharge and no tenderness. Left breast exhibits no mass, no nipple discharge and no tenderness. Breasts are symmetrical. Normal left breast and normalright breast Rectal: Rectal exam with normal anal tone. No mass, no external hemorrhoid and no internal hemorrhoid palpated or inspected. External genitalia: Normal external genitalia appropriate for age. Normal hair distribution. No labial lesion. Urethral meatus: Normal urethral meatus size, location and no lesion. No prolapse present. Normal urethral meatus Urethra: Normal urethra. No urethral tenderness, no mass and no urethral scarring palpated. Bladder: Bladder has no fullness, no mass palpated and no tenderness. Normal bladder Vagina:No lesion inspected. Normal estrogen effect. Normal support. Vaginal discharge found. No lesions in the vagina. +vaginal discharge Cervix: Normal cervix. No lesion. No tenderness and no discharge present. Closed thick Uterus: Uterus is normal size, normal contour, normal position and non-tender. Normal uterus Adnexa: Right adnexa without tenderness, ovary enlargement or mass. Left adnexa without tenderness, ovary enlargement or mass. Normal left adnexa and normal right adnexa Anus/perineum: Normal perineum and normal anus. PHYSICAL: General Exam: HEENT: Normal Neurological: Normal Abdomen: Normal gravid Extremities: Normal Pelvic Exam: Vulva: Normal Vagina: Normal Cervix: Normal Membrane status: Intact Uterus: 16 Weeks Adnexa: Normal Rectum: Normal Assessment/Plan Return to clinic in 4 weeks. Denies zika virus risk, signs and symptoms such as fever,rash,joint pain, conjunctivitis (red eyes),muscle pain, headaches; outside [place] travel to areas affected by zika, and FOB exposure to zika. Educated on use of mosquito repellent. Supervision of high risk , antepartum (primary encounter diagnosis) Comment: initial visit with labs and physical exam Plan: POCT TEST, POCT URINALYSIS W/O SPECIFIC GRAVITY, CBC WITH DIFF, HEPATITIS B SURFACE ANTIGEN, HIV 1/2 AG-AB WITH REFLEX, POCT URINALYSIS W SPECIFIC GRAVITY, WORKUP, BLOOD BANK, RUBELLA SCREEN (FEI) IGG, GALV ONLY - SYPHILIS IGG/IGM, URINE CULTURE, VZV ANTIBODY SCREEN, QUAD SCRN, GC & CHLAMYDIA AMPLIFIED ASSAY, Over weight Comment: see bmi Plan: BMI discussed, appropriate weight gain, sensible diet, and exercise, increased fiber and waterintake and protein low in fat. Encouraged exercise for 30 min everyday; begin regimen with caution to prevent injury. Encouraged to decrease BMI to <25. Educated on how obesity and smoking can affect future and health. Educated on the effects of chronic health problems, tobacco use, and mental health on future pregnancies and/or buttermaker helper health. Vaginal discharge Comment: report symptoms Plan: VAGINAL PROBE This visit did not involve counseling and coordination that comprised more than 50% of the visit time LORENA Harrison 12/22/2020 4:30 PM . Jacqueline Kim LVN - 12/22/2020 3:30 PM CSTPatient is 30 year old female here for current . Patient is . 1) Previous delivery methods NA 2) Patient is not experiencing cramping 3) Patient is not experiencing bleeding. 4) LMP 08/31/2020 5) Last Pap was 10/31/2020 Results neg 6) PPD candidate? no 7) Patient denies history of physical, emotional, or sexual abuse. Patient states she currently feels safe at home. 8) C/O breast pain 9) Would like flu vaccine? no 10) Hx of (+)positive COVID? No New OB packet given. Jacqueline Montoya LVN 12/22/2020 4:25 PM CTOR BUSINESS TRAVEL documented in this encounter Plan of Treatment Name Type Priority Associated Diagnoses Date/Ti me URINE CULTURE LAB Routine Supervision of high risk 4:34 PM DIRECTOR BUSINESS TRAVEL , antepartum GC & CHLAMYDIA LAB Routine Supervision of high risk 0 12/22/2020 4:34 PM DIRECTOR BUSINESS TRAVEL AMPLIFIED ASSAY , antepartum Name Type Priority Associated Diagnoses Order S chedule CBC WITH DIFF LAB Routine Supervision of high risk Ex pected: 12/22/2020, , antepartum s: 12/22/2021 HEPATITIS B SURFACE LAB Routine Supervision of high r isk Expected: 12/22/2020, ANTIGEN , antepartum s: 12/22/2021 HIV 1/2 AG-AB WITH LAB Routine Supervision of high ri sk Expected: 12/22/2020, REFLEX , antepartum s: 12/22/2021 POCT URINALYSIS W LAB Routine Supervision of high ris k 20 Occurrences starting SPECIFIC GRAVITY , antepartum until 10/18/2021 WORKUP, BLOOD LAB Routine Supervision of hig h risk Expected: 12/22/2020, BANK , antepartum s: 12/22/2021 RUBELLA SCREEN (FEI) LAB Routine Supervision of hig h risk Expected: 12/22/2020, IGG , antepartum s: 12/22/2021 GALV ONLY - SYPHILIS LAB Routine Supervision of high risk Expected: 12/22/2020, IGG/IGM , antepartum s: 12/22/2021 VZV ANTIBODY SCREEN LAB Routine Supervision of high r isk Expected: 12/22/2020, , antepartum s: 12/22/2021 QUAD SCRN LAB Routine Supervision of high risk Exp ected: 12/22/2020, , antepartum s: 12/22/2021 GALV ONLY - VAGINAL LAB Routine Vaginal discharge Ord ered: 12/22/2020 PATHOGENS BY NUCLEIC ACID TESTING Health Maintenance Due Date Last Done Comments [...] Name Priority Date/Time Associated Diagnosis Comme nts POCT URINALYSIS W/O Routine 12/22/2020 4:07 Supervision of hi gh Results for this SPECIFIC GRAVITY PM DIRECTOR BUSINESS TRAVEL risk , procedur e are in antepartum the results section. POCT TEST Routine 12/22/2020 4:03 Supervision of hi gh Results for this PM DIRECTOR BUSINESS TRAVEL risk , procedure ar e in antepartum the results section. documented in this encounter Results POCT URINALYSIS W/O SPECIFIC GRAVITY (12/22/2020 4:07 PM DIRECTOR BUSINESS TRAVEL) Pathologist Sig nature POCT PH U 5 5 - 8 mg/dl POCT U LEUK EST trace Negative - Negative POCT U NIT neg Negative - Negative POCT U PROT trace Negative - Negative POCT U GLU neg Negative - Negative POCT U KETONE neg Negative - Negative POCT U BLD neg Negative - Negative Specimen Urine - URINE, CLEAN CATCH POCT TEST (12/22/2020 4:03 PM DIRECTOR BUSINESS TRAVEL) Pathologist Sig nature POCT PREG Positive On board controls acceptable Yes with C Line POCT PREG LOT # yes POCT PREG TEST DATE Specimen Urine - URINE, CLEAN CATCH documented in this encounter Visit Diagnoses Diagnosis Supervision of high risk , ante - Primary Over weight Overweight Vaginal discharge Leukorrhea, not specified as infective documented in this encounter Insurance Payer Benefit Plan / Subscriber ID Effective Phone Address [employer] Dates MEDICAID MEDICAID PENDING 2020-Pres [address] [place] [address] [place] [address] documented as of this encounter
--- OUTSIDE RECORDS SUMMARY | 2020-12-30 12:39 | XMS REPORT | Summary of Care ---
:1990 Author Organization [facility] Address [address] [place] [address] Care Team Providers Name Role Phone Glenys Cisneros Primary Care Provider Reason for Visit Reason Comments Initial Visit Encounter Details Date Type Department Care Team Description [facility] vision of high risk , antepartum (Primary Dx); Visit LORENA Lopez Over weight; [address] Vagina l discharge [place], [place] [address] [place], [place] [phone] [address] Allergies No Known Allergiesdocumented as of [...] with No / Unsure 12/22/2020 4:08 PM HIGH SPEED PRINTER OPERATOR someone who was confirmed or suspected to have Coronavirus / COVID-19? documented as of this encounter Last Filed Vital Signs Vital Sign Reading Time Taken Comments Blood Pressure 98/64 12/22/2020 4:07 PM HIGH SPEED PRINTER OPERATOR Pulse 75 12/22/2020 4:07 PM HIGH SPEED PRINTER OPERATOR Temperature 36.7 C (98 F) 12/22/2020 4:07 PM HIGH SPEED PRINTER OPERATOR Respiratory Rate 16 12/22/2020 4:07 PM HIGH SPEED PRINTER OPERATOR Oxygen Saturation - - Inhaled Oxygen Concentration - - Weight 74.4 kg (164 lb) 12/22/2020 4:07 PM HIGH SPEED PRINTER OPERATOR Height 170.2 cm (5' 7") 12/22/2020 4:07 PM HIGH SPEED PRINTER OPERATOR Body Mass Index 25.69 12/22/2020 4:07 PM HIGH SPEED PRINTER OPERATOR documented in this encounter Progress Notes Rosamaria [...] file Gets together: Not on file Attends muslim service: Not on file Active member of [...] and mental health on future pregnancies and/or terminal superintendent health. Vaginal discharge Comment: report symptoms Plan: [...] given. Jacqueline Montoya LVN 12/22/2020 4:25 PM SPEED PRINTER OPERATOR documented in this encounter Plan of Treatment Date Type Specialty Care Team Description 12/25/2020 International Sales Manager Visit [facility], [facility] 01/19/2021 Routine Visit [facility] Digna Cisenros, CNP [address] [place], [place] [address] [phone] Name Type Priority Associated Diagnoses Date/Ti me URINE CULTURE LAB Routine Supervision of high risk 4:34 PM HIGH SPEED PRINTER OPERATOR , antepartum GC & CHLAMYDIA LAB Routine Supervision of high risk 0 12/22/2020 4:34 PM HIGH SPEED PRINTER OPERATOR AMPLIFIED ASSAY , antepartum GALV ONLY - VAGINAL LAB Routine Vaginal discharge 4:46 PM HIGH SPEED PRINTER OPERATOR PATHOGENS BY NUCLEIC ACID TESTING Name Type Priority Associated Diagnoses Order S [...] Exp ected: 12/22/2020, , antepartum s: 12/22/2021 Health Maintenance Due Date Last Done Comments [...] gh Results for this SPECIFIC GRAVITY PM HIGH SPEED PRINTER OPERATOR risk , procedur e are in antepartum the results section. POCT TEST Routine 12/22/2020 4:03 Supervision of hi gh Results for this PM HIGH SPEED PRINTER OPERATOR risk , procedure ar e in antepartum the results section. documented in this encounter Results POCT URINALYSIS W/O SPECIFIC GRAVITY (12/22/2020 4:07 PM HIGH SPEED PRINTER OPERATOR) Pathologist Sig nature POCT PH U 5 [...] CLEAN CATCH POCT TEST (12/22/2020 4:03 PM HIGH SPEED PRINTER OPERATOR) Pathologist Sig nature POCT PREG Positive On [...] [employer] Dates MEDICAID MEDICAID PENDING 2020-[address] [place] [address] documented as of this encounter
--- OUTSIDE RECORDS SUMMARY | 2020-12-30 12:39 | XMS REPORT | Summary of Care ---
:1990 Author Organization [facility] Address [address] [place] [address] Care Team Providers Name Role Phone Glenys Cisneros Primary Care Provider Reason for Visit Reason Comments Initial Visit Encounter Details Date Type Department Care Team Description 12/22/[address] [facility] [place] [place] Cisneros vision of high risk , antepartum (Primary Dx); Visit LORENA Lopez Over weight; [address] Vagina l discharge [place], [place] [address] [place], [place] [phone] [address] Allergies No Known Allergiesdocumented as of [...] with No / Unsure 12/22/2020 4:08 PM OPERATIONS SUPERVISOR 2ND SHIFT someone who was confirmed or suspected to have Coronavirus / COVID-19? documented as of this encounter Last Filed Vital Signs Vital Sign Reading Time Taken Comments Blood Pressure 98/64 12/22/2020 4:07 PM OPERATIONS SUPERVISOR 2ND SHIFT Pulse 75 12/22/2020 4:07 PM OPERATIONS SUPERVISOR 2ND SHIFT Temperature 36.7 C (98 F) 12/22/2020 4:07 PM OPERATIONS SUPERVISOR 2ND SHIFT Respiratory Rate 16 12/22/2020 4:07 PM OPERATIONS SUPERVISOR 2ND SHIFT Oxygen Saturation - - Inhaled Oxygen Concentration - - Weight 74.4 kg (164 lb) 12/22/2020 4:07 PM OPERATIONS SUPERVISOR 2ND SHIFT Height 170.2 cm (5' 7") 12/22/2020 4:07 PM OPERATIONS SUPERVISOR 2ND SHIFT Body Mass Index 25.69 12/22/2020 4:07 PM OPERATIONS SUPERVISOR 2ND SHIFT documented in this encounter Progress Notes Rosamaria [...] file Gets together: Not on file Attends latter day service: Not on file Active member of [...] and mental health on future pregnancies and/or manager intermediate health. Vaginal discharge Comment: report symptoms Plan: [...] LMP 08/31/2020 5) Last Pap was 10/31/2020 per patient- [facility] Results neg 6) PPD candidate? no 7) Patient denies history of physical, emotional, or sexual abuse. Patient states she currently feels safe at home. 8) C/O breast pain 9) Would like flu vaccine? no 10) Hx of (+)positive COVID? No New OB packet given. Jacqueline Montoya LVN 12/22/2020 4:25 PM ATIONS SUPERVISOR 2ND SHIFT documented in this encounter Plan of Treatment Date Type Specialty Care Team Description 12/25/2020 Hem Inspector [facility]/2021 Routine Visit [facility] Digna Cisneros, CNP [address] [place], [place] [address] [phone] Name Type Priority Associated Diagnoses Date/Ti me URINE CULTURE LAB Routine Supervision of high risk 4:34 PM OPERATIONS SUPERVISOR 2ND SHIFT , antepartum GC & CHLAMYDIA LAB Routine Supervision of high risk 0 12/22/2020 4:34 PM OPERATIONS SUPERVISOR 2ND SHIFT AMPLIFIED ASSAY , antepartum GALV ONLY - VAGINAL LAB Routine Vaginal discharge 4:46 PM OPERATIONS SUPERVISOR 2ND SHIFT PATHOGENS BY NUCLEIC ACID TESTING Name Type [...] gh Results for this SPECIFIC GRAVITY PM OPERATIONS SUPERVISOR 2ND SHIFT risk , procedur e are in antepartum the results section. POCT TEST Routine 12/22/2020 4:03 Supervision of hi gh Results for this PM OPERATIONS SUPERVISOR 2ND SHIFT risk , procedure ar e in antepartum the results section. documented in this encounter Results POCT URINALYSIS W/O SPECIFIC GRAVITY (12/22/2020 4:07 PM OPERATIONS SUPERVISOR 2ND SHIFT) Pathologist Sig nature POCT PH U 5 [...] CLEAN CATCH POCT TEST (12/22/2020 4:03 PM OPERATIONS SUPERVISOR 2ND SHIFT) Pathologist Sig nature POCT PREG Positive On [...] T [employer] Dates MEDICAID MEDICAID PENDING 2020-[address] [place] [address] documented as of this encounter
--- OUTSIDE RECORDS SUMMARY | 2020-12-30 12:39 | XMS REPORT | Summary of Care ---
:1990 Author Organization [facility] Address [address] [place] [address] Care Team Providers Name Role Phone Glenys Cisneros [facility] Primary Care Provider Reason for Visit Reason Comments LAB Encounter Details Date Type Department Care Team Description 12/25/2020 Case Management [facility] Rosamaria Cisneros, LAB [facility] [address] [facility] [address] [place] [address] [place] [address] [phone] Allergies No Known Allergiesdocumented as of this [...] with No / Unsure 12/22/2020 4:08 PM RELATIONSHIP CONSULTANT someone who was confirmed or suspected to have Coronavirus / COVID-19? documented as of this encounter Last Filed Vital Signs Not on filedocumented in this encounter Plan of Treatment Date Type Specialty Care Team Description 01/19/2021 Routine Visit [facility] Digna Cisneros, WHCNP [address] [place], [place] [address] [phone] Name Type Priority Associated Diagnoses Order S chedule GLUCOSE 1 HOUR POST LAB Routine Supervision of high r isk Expected: 12/25/2020, PRANDIAL , antepartum s: 12/25/2021 Health Maintenance Due Date Last Done Comments [...] of high risk , ante - Primary documented in this encounter Insurance Payer Benefit Plan / Subscriber ID Effective Phone Address [employer] Dates MEDICAID MEDICAID PENDING 2020-[address] Pending PENDING [place] [address] documented as of this encounter
[2020-12-30] MEDS ORDERED: ACETAMINOPHEN 500 MG TAB ONE (14:28)
[2020-12-30 14:35] LABS: SARS-COV-2 RT PCR NEGATIVE (NEGATIVE)
--- NOTE | 2020-12-30 14:41 | ER ---
Nurse's Notes [facility] Name: Maria C Stokes Age: 30 yrs Sex: Female : 1990 Arrival Date: 12/30/2020 Time: 12:38 Bed 13 Private MD: Diagnosis: Acute upper respiratory infection, unspecified Presentation: 12/30 13:12 Chief complaint: Patient states: Nasal congestion, nasal drainage, sore throat, with a vg1 non-productive cough for about 3 days now. Patient is also about 17 weeks . Coronavirus screen: Client denies travel out of the [place] in the last 14 days. Ebola Screen: Patient negative for fever greater than or equal to 101.5 degrees Fahrenheit, and additional compatible Ebola Virus Disease symptoms. Initial Sepsis Screen: Does the patient meet any 2 criteria? No. Patient's initial sepsis screen is negative. Does the patient have a suspected source of infection? No. Patient's initial sepsis screen is negative. Risk Assessment: Do you want to hurt yourself or someone else? Patient reports no desire to harm self or others. Onset of symptoms was December 27, 2020. 13:12 Method Of Arrival: Ambulatory vg1 13:12 Acuity: JM 4 vg1 Historical: - Allergies: 13:15 No Known Allergies; vg1 - Home Meds: 13:15 Vitamin Oral [Active]; vg1 - PMHx: 13:16 None; vg1 - PSHx: 13:15 None; vg1 - Immunization history:: Adult Immunizations up to date, Flu vaccine is not up to date. - Social history:: Smoking status: Patient denies any tobacco usage or history of. Screenin:17 Abuse screen: Denies threats or abuse. Nutritional screening: No deficits noted. vg1 Tuberculosis screening: No symptoms or risk factors identified. Fall Risk No fall in past 12 months (0 pts). No secondary diagnosis (0 pts). No IV (0 pts). Ambulatory Aid- None/Bed Rest/Nurse Assist (0 pts). Gait- Normal/Bed Rest/Wheelchair (0 pts) Mental Status- Oriented to own ability (0 pts). Total Ocasio Fall Scale indicates No Risk (0-24 pts). Assessment: 13:16 General: Appears in no apparent distress. comfortable, Behavior is calm, cooperative. vg1 Pain: Denies pain. Neuro: Level of Consciousness is awake, alert, obeys commands, Oriented to person, place, time, situation. Cardiovascular: Patient's skin is warm and dry. Respiratory: Airway is patent Respiratory effort is even, unlabored, Respiratory pattern is regular, symmetrical, Breath sounds are clear bilaterally. GI: No signs and/or symptoms were reported involving the gastrointestinal system. : No signs and/or symptoms were reported regarding the genitourinary system. EENT: Throat is pink. Derm: Skin is intact, is healthy with good turgor. Musculoskeletal: Circulation, motion, and sensation intact. 14:08 Reassessment: Patient c/o headache. Notified provider. Turner HARRIS gave VO to administer vg1 Tylenol 500 mg PO x1. Vital Signs: 13:12 BP 102 / 78; Pulse 93; Resp 16; Temp 98.3; Pulse Ox 98% on R/A; Weight 75.3 kg; Height vg1 5 ft. 7 in. (170.18 cm); Pain 0/10; 14:15 BP 109 / 74; Pulse 85; Resp 18; Pulse Ox 99% on R/A; vg1 13:12 Body Mass Index 26.00 (75.30 kg, 170.18 cm) vg1 Vitals: 13:45 Heart Tones 146. vg1 ED Course: 12:38 Patient arrived in ED. ds1 12:51 Turner García NP is PHCP. pm1 12:51 Tim Fisher MD is Attending Physician. pm1 13:01 Tootie Dillard, RN is Primary Nurse. vg1 13:14 Triage completed. vg1 13:18 Patient has correct armband on for positive identification. Placed in gown. Bed in low vg1 position. Call light in reach. Side rails up X 1. 14:51 No provider procedures requiring assistance completed. Patient did not have IV access vg1 during this emergency room visit. Administered Medications: 14:15 Drug: Tylenol 500 mg Route: PO; vg1 14:52 Follow up: Response: No adverse reaction; Pain is decreased vg1 Outcome: 14:40 Discharge ordered by . pm1 14:51 Discharged to home ambulatory. vg1 14:51 Condition: stable 14:51 Discharge instructions given to patient, Instructed on discharge instructions, follow up and referral plans. Demonstrated understanding of instructions, follow-up care. 14:51 Patient left the ED. vg1 Signatures: Olena Whyte ds1 Turner García NP CHILD WELFARE WORKER pm1 Tootie Dillard RN RN vg1
--- NOTE | 2020-12-30 14:41 | EDPHYS ---
Physician Documentation [facility] Name: Maria C Stokes Age: 30 yrs Sex: Female : 1990 Arrival Date: 12/30/2020 Time: 12:38 Bed 13 Private MD: ED Physician Tim Fisher HPI: 12/30 13:34 This 30 yrs old Female presents to ER via Ambulatory with complaints of pm1 Congestion, 17 Wks Preg. 13:34 The patient or guardian reports nasal congestion, nasal drainage, sore throat, dry pm1 cough. Onset: The symptoms/episode began/occurred 3 day(s) ago. Modifying factors: The symptoms are alleviated by nothing. the symptoms are aggravated by nothing. Associated signs and symptoms: Pertinent negatives: chest pain, diarrhea, ear ache, fever, nausea, vomiting, shortness of breath. Severity of symptoms: in the emergency department the symptoms are unchanged. Historical: - Allergies: 13:15 No Known Allergies; vg1 - Home Meds: 13:15 Vitamin Oral [Active]; vg1 - PMHx: 13:16 None; vg1 - PSHx: 13:15 None; vg1 - Immunization history:: Adult Immunizations up to date, Flu vaccine is not up to date. - Social history:: Smoking status: Patient denies any tobacco usage or history of. ROS: 13:34 Constitutional: Negative for fever, chills, and weight loss, Eyes: Negative for injury, pm1 pain, redness, and discharge. 13:34 Cardiovascular: Negative for chest pain, palpitations, and edema. pm1 13:34 Abdomen/GI: Negative for abdominal pain, nausea, vomiting, diarrhea, and constipation, Back: Negative for injury and pain, : Negative for injury, bleeding, discharge, and swelling, MS/Extremity: Negative for injury and deformity, Skin: Negative for injury, rash, and discoloration, Neuro: Negative for headache, weakness, numbness, tingling, and seizure. 13:34 ENT: Positive for Nasal congestion, nasal drainage, sore throat, Negative for ear pain. 13:34 Respiratory: Positive for cough, Negative for shortness of breath, sputum production, wheezing. Exam: 13:34 Constitutional: This is a well developed, well nourished patient who is awake, alert, pm1 and in no acute distress. Head/Face: Normocephalic, atraumatic. 13:34 Back: No spinal tenderness. No costovertebral tenderness. Full range of motion. Skin: Warm, dry with normal turgor. Normal color with no rashes, no lesions, and no evidence of cellulitis. MS/ Extremity: Pulses equal, no cyanosis. Neurovascular intact. Full, normal range of motion. 13:34 ENT: External ear(s): are unremarkable, Ear canal(s): are normal, TM's: are normal, Nose: no acute changes, Posterior pharynx: is normal, airway is patent, no erythema, no exudate, no peritonsilar mass, no pooling of secretions, no swelling. 13:34 Cardiovascular: Exam negative for acute changes, Rate: normal, Rhythm: regular, Pulses: no pulse deficits are appreciated. 13:34 Respiratory: Exam negative for acute changes, respiratory distress, shortness of breath, Breath sounds: are clear throughout. 13:34 Abdomen/GI: Inspection: abdomen appears normal, Palpation: abdomen is soft and non-tender, in all quadrants. 13:34 Neuro: Exam negative for acute changes, Orientation: is normal, Mentation: is normal, Motor: is normal, moves all fours. Vital Signs: 13:12 BP 102 / 78; Pulse 93; Resp 16; Temp 98.3; Pulse Ox 98% on R/A; Weight 75.3 kg; Height vg1 5 ft. 7 in. (170.18 cm); Pain 0/10; 14:15 BP 109 / 74; Pulse 85; Resp 18; Pulse Ox 99% on R/A; vg1 13:12 Body Mass Index 26.00 (75.30 kg, 170.18 cm) vg1 MDM: 13:06 Patient medically screened. pm1 14:39 Data reviewed: vital signs. Data interpreted: Pulse oximetry: on room air is 99 %. pm1 Interpretation: normal. Counseling: I had a detailed discussion with the patient and/or guardian regarding: the historical points, exam findings, and any diagnostic results supporting the discharge/admit diagnosis, lab results, the need for outpatient follow up, a family practitioner, an OB/Gyne specialist, to return to the emergency department if symptoms worsen or persist or if there are any questions or concerns that arise at home. 12/30 13:12 Order name: Strep; Complete Time: 14:02 pm1 12/30 13:58 Order name: Throat Culture EDMO 12/30 14:35 Order name: COVID-19/FLU A+B; Complete Time: 14:39 EDMO 12/30 13:12 Order name: Droplet/Contact Precautions; Complete Time: 13:18 pm1 12/30 13:12 Order name: Labs collected and sent; Complete Time: 13:44 pm1 12/30 13:12 Order name: O2 Per Protocol; Complete Time: 13:19 pm1 12/30 13:12 Order name: FHT's; Complete Time: 13:44 pm1 Administered Medications: 14:15 Drug: Tylenol 500 mg Route: PO; vg1 14:52 Follow up: Response: No adverse reaction; Pain is decreased vg1 Disposition: 12/30/20 14:40 Discharged to Home. Impression: Acute upper respiratory infection, unspecified. - Condition is Stable. - Discharge Instructions: Antibiotic Resistance, Upper Respiratory Infection, Adult, Viral Respiratory Infection. - Medication Reconciliation Form, Thank You Letter, Antibiotic Education, Prescription Opioid Use form. - Follow up: Emergency Department; When: As needed; Reason: Worsening of condition. Follow up: Private Physician; When: 2 - 3 days; Reason: Recheck today's complaints, Continuance of care, Re-evaluation by your physician. - Problem is new. - Symptoms have improved. Addendum: 01/01/2021 18:01 Co-signature as Attending Physician, Tim Fisher MD. m a2 Signatures: Dispatcher [employer] [facility] Turner García, INVENTORY PLANNER INVENTORY PLANNER pm1 Tim Fisher MD MD ma2 Tootie Dillard, RN RN vg1 Corrections: (The following items were deleted from the chart) 12/30 13:46 13:13 Influenza Screen (A \T\ B)+BA.LAB.BRZ ordered. EDMO EDMS 13:46 13:13 CORONAVIRUS+MR.LAB.BRZ ordered. EDMO EDMS 14:51 14:40 12/30/2020 14:40 Discharged to Home. Impression: Acute upper respiratory vg1 infection, unspecified. Condition is Stable. Forms are Medication Reconciliation Form, Thank You Letter, Antibiotic Education, Prescription Opioid Use. Follow up: Emergency Department; When: As needed; Reason: Worsening of condition. Follow up: Private Physician; When: 2 - 3 days; Reason: Recheck today's complaints, Continuance of care, Re-evaluation by your physician. Problem is new. Symptoms have improved. pm1
[2020-12-30 14:56] VITALS: TEMP 98.3
[2020-12-30 14:58] VITALS: BP 109/74; O2SAT 99
== END 2020-12-30 14:51 | disposition home or self-care (01) ==
LOC: ER 12:36
DX: O98.812 Other maternal infectious and parasitic diseases complicating pregnancy, second trimester (principal); Z3A.17 17 weeks gestation of pregnancy; J06.9 Acute upper respiratory infection, unspecified; Z20.822 Contact with and (suspected) exposure to COVID-19
CPT/HCPCS: 87070; 87081; 0240U; 99283

== ENCOUNTER 2022-04-07 19:07 | Emergency (ER) | payer OTHER ==
--- OUTSIDE RECORDS SUMMARY | 2022-04-07 19:12 | XMS REPORT | Continuity of Care Document ---
:1990 Author Organization [facility] t Address [address] [place] [address] Care Team Providers Name Role Phone AMELIA, C Primary Care Physician Unavailable Nishant MERRITTP Attending Clinician Nishant ALCANTARP Attending Clinician Nurse, Rmchp Rgv Cprit Obgyn Attending Clinician Unavailabl modesto CISNEROS, C Attending Clinician Unavailable Yuri WHCNP, O Attending Clinician Akinsikim FRAZIERCNP, C Attending Clinician INDUCTION Attending Clinician Unavailable Justin RN Attending Clinician Unavailable Eloisa CERON, T Attending Clinician Unavailable Lab Attending Clinician Unavailable Osito PERALTA Attending Clinician Prateek EGAN Attending Clinician Jermain MERRITTP, R Attending Clinician Ultrasound Attending Clinician Unavailable Travis EGAN M Attending Clinician Yasmani Johnson MD Attending Clinician 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, Name Attending Clinician Unavailable PRATEEK Admitting Clinician Unavailable Prateek EGAN Admitting Clinician Payers Payer Name Policy Type Policy Number Effective Date Expiration Date Gio desouza [facility] [id number] 2021 CHOICE MEDICAID 00:00:00 [facility] [id number] 2019 CHOICE - MANAGED 00:00:00 MEDICAID MEDICAID [facility] [id number] 2020 00:00:00 MEDICAID PENDING PENDING 2020 00:00:00 Problems Condition Condition Condition Status Onset Resolution Last Treating Co mments Source Name Details Category Date Date Treatment Clinician Date Other Other Disease Active NPI:183 general general 7-14 [id number] counseling counseling 00:00: and advice and advice 00 for for contracept contracept carolina carolina management management Well woman Well woman Disease Active N PI:183 exam exam 05-29 0800021 00:00: 00 Disease Active NPI:183 (spontaneo (spontaneo 05-23 13 80580 us vaginal us vaginal 00:00: delivery) delivery) 00 Single Single Disease Active NPI:183 live live 05-23 13 85210 00:00: 00 Obstetrica Obstetrica Disease Active N PI:183 l l 05-23 [id number] laceration laceration 00:00: 00 Hemorrhoid Hemorrhoid Disease Active N PI:183 s during s during 05-23 652963 1 00:00: in first in first 00 trimester trimester Obesity Obesity Disease Active NPI:183 (BMI (BMI 05-21 8259238 30-39.9) 30-39.9) 00:00: 00 37 weeks 37 weeks Disease Active NPI:1 83 gestation gestation 05-21 1318 781 of of 00:00: 00 Vaginal Vaginal Disease Active NPI:183 bleeding bleeding 05-21 078730 1 in in 00:00: , , 00 third third trimester trimester 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 Address intrapart um Lab test Lab test Disease Active NPI:1 83 positive positive 05-11 141536 1 for for 00:00: detection detection 00 of of COVID-19 COVID-19 virus virus Fall Fall Disease Active NPI:183 5-19 [id number] 00:00: 00 GBS (group GBS (group Disease Active Overview : NPI:183 B B 4-23 [place] 4891689 streptococ streptococ 00:00: g of this cus) UTI cus) UTI 00 note complicati complicati might be ng ng different from the original. 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 NIL pap with neg HPV 11/08/20, see scanned records Susceptibl Susceptibl Disease Active Overview : NPI:183 e to e to 12-26 Form[place] 4535847 varicella varicella 00:00: g of this (non-immun (non-immun 00 note e), e), might be currently currently different from the original. Address pp Supervisio Supervisio Disease Active N PI:183 n of n of 12-22 9021060 high-risk high-risk 00:00: 00 Over Over Disease Active NPI:183 weight weight 12-22 7479316 00:00: 00 Vaginal Vaginal Disease Active NPI:183 discharge discharge 12-22 1318 781 00:00: 00 Allergies, Adverse Reactions, Alerts Allergy Allergy Status Severity Reaction(s) Onset Inactive Treating Comm ents Source Name Type Date Date Clinician NO KNOWN Drug Active NPI:183 ALLERGIE Class [id number] S Social History Social Habit Start Date Stop Date Quantity Comments Source ASSERTION 2020-09-14 00:00:00 Exposure to Not sure NPI:[id number] 1 SARS-CoV-2 (event) Alcohol intake 2021-06-13 2021-06-13 Ex-drinker NPI:[id number] 2719 00:00:00 00:00:00 (finding) Tobacco use and 2020-12-22 2020-12-22 Never used NPI:98469 83524 exposure 00:00:00 00:00:00 [birth year] NPI:32425 07917 00:00:00 00:00:00 Smoking Status Start Date Stop Date Source Never smoker Medications Ordered Filled Start Stop Current Ordering Indication Dosage Frequency Signature Comments Components Source Medication Medication Date Date Medication? Clinician (SIG) Name Name Yes [id number] 1{tbl} Take 1 NPI:183 vitamin 6-23 tablet by [id number] w/FA tablet 00:00: mouth 00 daily. docusate Yes [id number] 240mg Take 1 N PI:183 calcium 240 6-23 capsule by 13 83228 mg capsule 00:00: mouth once 00 daily as needed for Constipati on. 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 ibuprofen Yes [id number] 600mg Take 1 NPI:183 600 mg 6-23 tablet by [id number] tablet 00:00: mouth 00 every 6 (six) hours as needed (Pain). Take with food or milk. Yes [id number] 1{tbl} Take 1 NPI:183 vitamin 6-23 tablet by [id number] w/FA tablet 00:00: mouth 00 daily. docusate Yes [id number] 240mg Take 1 N PI:183 calcium 240 6-23 capsule by 13 32049 mg capsule 00:00: mouth once 00 daily as needed for Constipati on. 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 ibuprofen Yes [id number] 600mg Take 1 NPI:183 600 mg 6-23 tablet by [id number] tablet 00:00: mouth 00 every 6 (six) hours as needed (Pain). Take with food or milk. Yes [id number] 1{tbl} Take 1 NPI:183 vitamin 6-23 tablet by [id number] w/FA tablet 00:00: mouth 00 daily. docusate Yes [id number] 240mg Take 1 N PI:183 calcium 240 6-23 capsule by 13 84769 mg capsule 00:00: mouth once 00 daily as needed for Constipati on. 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 ibuprofen Yes [id number] 600mg Take 1 NPI:183 600 mg 6-23 tablet by [id number] tablet 00:00: mouth 00 every 6 (six) hours as needed (Pain). Take with food or milk. 2020-0 Yes [id number] 1{tbl} Take 1 NPI:183 vitamin 6-23 tablet by [id number] w/FA tablet 00:00: mouth 00 daily. docusate Yes [id number] 240mg Take 1 N PI:183 calcium 240 6-23 capsule by 13 77837 mg capsule 00:00: mouth once 00 daily as needed for Constipati on. 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 ibuprofen Yes [id number] 600mg Take 1 NPI:183 600 mg 6-23 tablet by [id number] tablet 00:00: mouth 00 every 6 (six) hours as needed (Pain). Take with food or milk. Yes [id number] 1{tbl} Take 1 NPI:183 vitamin 6-23 tablet by [id number] w/FA tablet 00:00: mouth 00 daily. docusate Yes [id number] 240mg Take 1 N PI:183 calcium 240 6-23 capsule by 13 78678 mg capsule 00:00: mouth once 00 daily as needed for Constipati on. 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 ibuprofen Yes [id number] 600mg Take 1 NPI:183 600 mg 6-23 tablet by [id number] tablet 00:00: mouth 00 every 6 (six) hours as needed (Pain). Take with food or milk. 2020-0 Yes [id number] 1{tbl} Take 1 NPI:183 vitamin 6-23 tablet by [id number] w/FA tablet 00:00: mouth 00 daily. docusate Yes [id number] 240mg Take 1 N PI:183 calcium 240 6-23 capsule by 13 49464 mg capsule 00:00: mouth once 00 daily as needed for Constipati on. 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 ibuprofen Yes [id number] 600mg Take 1 NPI:183 600 mg 6-23 tablet by [id number] tablet 00:00: mouth 00 every 6 (six) hours as needed (Pain). Take with food or milk. 2020-0 Yes [id number] 1{tbl} Take 1 NPI:183 vitamin 6-23 tablet by 8159124 w/FA tablet 00:00: mouth 00 daily. docusate Yes [id number] 240mg Take 1 N PI:183 calcium 240 6-23 capsule by 13 91846 mg capsule 00:00: mouth once 00 daily as needed for Constipati on. 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 ibuprofen Yes [id number] 600mg Take 1 NPI:183 600 mg 6-23 tablet by [id number] tablet 00:00: mouth 00 every 6 (six) hours as needed (Pain). Take with food or milk. Yes [id number] 1{tbl} Take 1 NPI:183 vitamin 6-23 tablet by [id number] w/FA tablet 00:00: mouth 00 daily. docusate Yes [id number] 240mg Take 1 N PI:183 calcium 240 6-23 capsule by 13 40833 mg capsule 00:00: mouth once 00 daily as needed for Constipati on. 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 ibuprofen Yes [id number] 600mg Take 1 NPI:183 600 mg 6-23 tablet by [id number] tablet 00:00: mouth 00 every 6 (six) hours as needed (Pain). Take with food or milk. 2020-0 Yes [id number] 1{tbl} Take 1 NPI:183 vitamin 6-23 tablet by [id number] w/FA tablet 00:00: mouth 00 daily. docusate Yes [id number] 240mg Take 1 N PI:183 calcium 240 6-23 capsule by 13 52030 mg capsule 00:00: mouth once 00 daily as needed for Constipati on. 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 ibuprofen Yes [id number] 600mg Take 1 NPI:183 600 mg 6-23 tablet by [id number] tablet 00:00: mouth 00 every 6 (six) hours as needed (Pain). Take with food or milk. Yes [id number] 1{tbl} Take 1 NPI:183 vitamin 6-23 tablet by [id number] w/FA tablet 00:00: mouth 00 daily. docusate Yes [id number] 240mg Take 1 N PI:183 calcium 240 6-23 capsule by 13 66408 mg capsule 00:00: mouth once 00 daily as needed for Constipati on. 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 ibuprofen Yes [id number] 600mg Take 1 NPI:183 600 mg 6-23 tablet by [id number] tablet 00:00: mouth 00 every 6 (six) hours as needed (Pain). Take with food or milk. Yes [id number] 1{tbl} Take 1 NPI:183 vitamin 6-23 tablet by 5175078 w/FA tablet 00:00: mouth 00 daily. docusate Yes [id number] 240mg Take 1 N PI:183 calcium 240 6-23 capsule by 13 40170 mg capsule 00:00: mouth once 00 daily as needed for Constipati on. 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 ibuprofen Yes [id number] 600mg Take 1 NPI:183 600 mg 6-23 tablet by [id number] tablet 00:00: mouth 00 every 6 (six) hours as needed (Pain). Take with food or milk. Yes [id number] 1{tbl} Take 1 NPI:183 vitamin 6-23 tablet by 4303683 w/FA tablet 00:00: mouth 00 daily. docusate Yes [id number] 240mg Take 1 N PI:183 calcium 240 6-23 capsule by 13 69706 mg capsule 00:00: mouth once 00 daily as needed for Constipati on. 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 ibuprofen Yes [id number] 600mg Take 1 NPI:183 600 mg 6-23 tablet by [id number] tablet 00:00: mouth 00 every 6 (six) hours as needed (Pain). Take with food or milk. Nitrofurant Yes [id number] 100mg Take 1 NPI:183 oin&Nit. 5-10 [place] 41544 81 Macrocryst 00:00: mouth 2 (MACROBID) 00 (two) 100 mg times capsule daily. Nitrofurant Yes [id number] 100mg Take 1 NPI:183 oin&Nit. 5-[place] 10505 81 Macrocryst 00:00: mouth 2 (MACROBID) 00 (two) 100 mg times capsule daily. Nitrofurant Yes [id number] 100mg Take 1 NPI:183 oin&Nit. 5-[place] [address]2003 81 Macrocryst 00:00: mouth 2 (MACROBID) 00 (two) 100 mg times capsule daily. Nitrofurant Yes [id number] 100mg Take 1 NPI:183 oin&Nit. 5-[place] 74516 81 Macrocryst 00:00: mouth 2 (MACROBID) 00 (two) 100 mg times capsule daily. Nitrofurant Yes [id number] 100mg Take 1 NPI:183 oin&Nit. 5-[place] 71508 81 Macrocryst 00:00: mouth 2 (MACROBID) 00 (two) 100 mg times capsule daily. Nitrofurant 2020-0 Yes [id number] 100mg Take 1 NPI:183 oin&Nit. 5-[place] [id number] 81 Macrocryst 00:00: mouth 2 (MACROBID) 00 (two) 100 mg times capsule daily. Nitrofurant 2020-0 Yes [id number] 100mg Take 1 NPI:183 oin&Nit. 5-[place] [id number] 81 Macrocryst 00:00: mouth 2 (MACROBID) 00 (two) 100 mg times capsule daily. Nitrofurant 2020-0 Yes [id number] 100mg Take 1 NPI:183 oin&Nit. 5-[place] [id number] 81 Macrocryst 00:00: mouth 2 (MACROBID) 00 (two) 100 mg times capsule daily. Nitrofurant 2020-0 Yes [id number] 100mg Take 1 NPI:183 oin&[place]it. 5-[place] 24225 81 Macrocryst 00:00: mouth 2 (MACROBID) 00 (two) 100 mg times capsule daily. Nitrofurant 2020-0 Yes [id number] 100mg Take 1 NPI:183 oin&Nit. 5-10 [place] 95823 81 Macrocryst 00:00: mouth 2 (MACROBID) 00 (two) 100 mg times capsule daily. Nitrofurant 2020-0 Yes [id number] 100mg Take 1 NPI:183 oin&Nit. 5-10 [place] 09768 81 Macrocryst 00:00: mouth 2 (MACROBID) 00 (two) 100 mg times capsule daily. Nitrofurant 2020-0 Yes [id number] 100mg Take 1 NPI:183 oin&Nit. 5-[place] [address] 81 Macrocryst 00:00: mouth 2 (MACROBID) 00 (two) 100 mg times capsule daily. Nitrofurant 2020-0 Yes [id number] 100mg Take 1 NPI:183 oin&Nit. 5-10 [place] [id number] 81 Macrocryst 00:00: mouth 2 (MACROBID) 00 (two) 100 mg times capsule daily. Nitrofurant 2020-0 Yes [id number] 100mg Take 1 NPI:183 oin&Nit. 5-[place] 97033 81 Macrocryst 00:00: mouth 2 (MACROBID) 00 (two) 100 mg times capsule daily. Nitrofurant Yes [id number] 100mg Take 1 NPI:183 oin&Nit. 5-[place] [id number] 81 Macrocryst 00:00: mouth 2 (MACROBID) 00 (two) 100 mg times capsule daily. Nitrofurant Yes [id number] 100mg Take 1 NPI:183 oin&Nit. 5-[place] 17907 81 Macrocryst 00:00: mouth 2 (MACROBID) 00 (two) 100 mg times capsule daily. Nitrofurant Yes [id number] 100mg Take 1 NPI:183 oin&Nit. 5-[place] 07609 81 Macrocryst 00:00: mouth 2 (MACROBID) 00 (two) 100 mg times capsule daily. Yes 2{tbl} Take 2 NPI:1 83 vit 4-23 tablets by [id number] calc,iron,f 08:54: mouth olic 50 daily. ( VITAMIN ORAL) Yes 2{tbl} Take 2 NPI:1 83 vit 4-23 tablets by [id number] calc,iron,f 08:54: mouth olic 50 daily. ( VITAMIN ORAL) Yes 2{tbl} Take 2 NPI:1 83 vit 4-23 tablets by [id number] calc,iron,f 08:54: mouth olic 50 daily. ( VITAMIN ORAL) Yes 2{tbl} Take 2 NPI:1 83 vit 4-23 tablets by [id number] calc,iron,f 08:54: mouth olic 50 daily. ( VITAMIN ORAL) Yes 2{tbl} Take 2 NPI:1 83 vit 4-23 tablets by [id number] calc,iron,f 08:54: mouth olic 50 daily. ( VITAMIN ORAL) Yes 2{tbl} Take 2 NPI:1 83 vit 4-23 tablets by [id number] calc,iron,f 08:54: mouth olic 50 daily. ( VITAMIN ORAL) Yes 2{tbl} Take 2 NPI:1 83 vit 4-23 tablets by [id number] calc,iron,f 08:54: mouth olic 50 daily. ( VITAMIN ORAL) Yes 2{tbl} Take 2 NPI:1 83 vit 4-23 tablets by [id number] calc,iron,f 08:54: mouth olic 50 daily. ( VITAMIN ORAL) Yes 2{tbl} Take 2 NPI:1 83 vit 4-23 tablets by [id number] calc,iron,f 08:54: mouth olic 50 daily. ( VITAMIN ORAL) Yes 2{tbl} Take 2 NPI:1 83 vit 4-23 tablets by [id number] calc,iron,f 08:54: mouth olic 50 daily. ( VITAMIN ORAL) Yes 2{tbl} Take 2 NPI:1 83 vit 4-23 tablets by [id number] calc,iron,f 08:54: mouth olic 50 daily. ( VITAMIN ORAL) Yes 2{tbl} Take 2 NPI:1 83 vit 4-23 tablets by [id number] calc,iron,f 08:54: mouth olic 50 daily. ( VITAMIN ORAL) Yes 2{tbl} Take 2 NPI:1 83 vit 4-23 tablets by [id number] calc,iron,f 08:54: mouth olic 50 daily. ( VITAMIN ORAL) Yes 2{tbl} Take 2 NPI:1 83 vit 4-23 tablets by [id number] calc,iron,f 08:54: mouth olic 50 daily. ( VITAMIN ORAL) Yes 2{tbl} Take 2 NPI:1 83 vit 4-23 tablets by [id number] calc,iron,f 08:54: mouth olic 50 daily. ( VITAMIN ORAL) Yes 2{tbl} Take 2 NPI:1 83 vit 4-23 tablets by [id number] calc,iron,f 08:54: mouth olic 50 daily. ( VITAMIN ORAL) Yes 2{tbl} Take 2 NPI:1 83 vit 4-23 tablets by [id number] calc,iron,f 08:54: mouth olic 50 daily. ( VITAMIN ORAL) Yes 2{tbl} Take 2 NPI:1 83 vit 4-23 tablets by [id number] calc,iron,f 08:54: mouth olic 50 daily. ( VITAMIN ORAL) Yes 2{tbl} Take 2 NPI:1 83 vit 4-23 tablets by [id number] calc,iron,f 08:54: mouth olic 50 daily. ( VITAMIN ORAL) Yes 2{tbl} Take 2 NPI:1 83 vit 4-23 tablets by [id number] calc,iron,f 08:54: mouth olic 50 daily. ( VITAMIN ORAL) Yes 2{tbl} Take 2 NPI:1 83 vit 4-23 tablets by [id number] calc,iron,f 08:54: mouth olic 50 daily. ( VITAMIN ORAL) Yes 2{tbl} Take 2 NPI:1 83 vit 4-23 tablets by [id number] calc,iron,f 08:54: mouth olic 50 daily. ( VITAMIN ORAL) Yes 2{tbl} Take 2 NPI:1 83 vit 4-23 tablets by [id number] calc,iron,f 08:54: mouth olic 50 daily. ( VITAMIN ORAL) miconazole Yes [id number] 1{appli Insert 1 NPI:183 (MICONAZOLE 4-23 cator} Applicator [id number] 7) 2 % 00:00: into vaginal 00 vagina at cream bedtime. miconazole Yes [id number] 1{appli Insert 1 NPI:183 (MICONAZOLE 4-23 cator} Applicator [id number] 7) 2 % 00:00: into vaginal 00 vagina at cream bedtime. miconazole Yes [id number] 1{appli Insert 1 NPI:183 (MICONAZOLE 4-23 cator} Applicator [id number] 7) 2 % 00:00: into vaginal 00 vagina at cream bedtime. miconazole Yes [id number] 1{appli Insert 1 NPI:183 (MICONAZOLE 4-23 cator} Applicator [id number] 7) 2 % 00:00: into vaginal 00 vagina at cream bedtime. miconazole Yes [id number] 1{appli Insert 1 NPI:183 (MICONAZOLE 4-23 cator} Applicator [id number] 7) 2 % 00:00: into vaginal 00 vagina at cream bedtime. miconazole 1-0 Yes [id number] 1{appli Insert 1 NPI:183 (MICONAZOLE 4-23 cator} Applicator [id number] 7) 2 % 00:00: into vaginal 00 vagina at cream bedtime. miconazole 1-0 Yes [id number] 1{appli Insert 1 NPI:183 (MICONAZOLE 4-23 cator} Applicator [id number] 7) 2 % 00:00: into vaginal 00 vagina at cream bedtime. miconazole 1-0 Yes [id number] 1{appli Insert 1 NPI:183 (MICONAZOLE 4-23 cator} Applicator [id number] 7) 2 % 00:00: into vaginal 00 vagina at cream bedtime. miconazole 1-0 Yes [id number] 1{appli Insert 1 NPI:183 (MICONAZOLE 4-23 cator} Applicator [id number] 7) 2 % 00:00: into vaginal 00 vagina at cream bedtime. miconazole 1-0 Yes [id number] 1{appli Insert 1 NPI:183 (MICONAZOLE 4-23 cator} Applicator [id number] 7) 2 % 00:00: into vaginal 00 vagina at cream bedtime. miconazole 1-0 Yes [id number] 1{appli Insert 1 NPI:183 (MICONAZOLE 4-23 cator} Applicator [id number] 7) 2 % 00:00: into vaginal 00 vagina at cream bedtime. miconazole 1-0 Yes [id number] 1{appli Insert 1 NPI:183 (MICONAZOLE 4-23 cator} Applicator [id number] 7) 2 % 00:00: into vaginal 00 vagina at cream bedtime. miconazole 1-0 Yes [id number] 1{appli Insert 1 NPI:183 (MICONAZOLE 4-23 cator} Applicator [id number] 7) 2 % 00:00: into vaginal 00 vagina at cream bedtime. miconazole 2021-0 Yes [id number] 1{appli Insert 1 NPI:183 (MICONAZOLE 4-23 cator} Applicator [id number] 7) 2 % 00:00: into vaginal 00 vagina at cream bedtime. miconazole 2020-0 Yes [id number] 1{appli Insert 1 NPI:183 (MICONAZOLE 4-23 cator} Applicator [id number] 7) 2 % 00:00: into vaginal 00 vagina at cream bedtime. miconazole 2020-0 Yes [id number] 1{appli Insert 1 NPI:183 (MICONAZOLE 4-23 cator} Applicator [id number] 7) 2 % 00:00: into vaginal 00 vagina at cream bedtime. miconazole 2020-0 Yes [id number] 1{appli Insert 1 NPI:183 (MICONAZOLE 4-23 cator} Applicator [id number] 7) 2 % 00:00: into vaginal 00 vagina at cream bedtime. miconazole 2020-0 Yes [id number] 1{appli Insert 1 NPI:183 (MICONAZOLE 4-23 cator} Applicator [id number] 7) 2 % 00:00: into vaginal 00 vagina at cream bedtime. miconazole 2020-0 Yes [id number] 1{appli Insert 1 NPI:183 (MICONAZOLE 4-23 cator} Applicator [id number] 7) 2 % 00:00: into vaginal 00 vagina at cream bedtime. miconazole 2020-0 Yes [id number] 1{appli Insert 1 NPI:183 (MICONAZOLE 4-23 cator} Applicator [id number] 7) 2 % 00:00: into vaginal 00 vagina at cream bedtime. miconazole 2020-0 Yes [id number] 1{appli Insert 1 NPI:183 (MICONAZOLE 4-23 cator} Applicator [id number] 7) 2 % 00:00: into vaginal 00 vagina at cream bedtime. miconazole 2020-0 Yes [id number] 1{appli Insert 1 NPI:183 (MICONAZOLE 4-23 cator} Applicator [id number] 7) 2 % 00:00: into vaginal 00 vagina at cream bedtime. miconazole 2020-0 Yes [id number] 1{appli Insert 1 NPI:183 (MICONAZOLE 4-23 cator} Applicator [id number] 7) 2 % 00:00: into vaginal 00 vagina at cream bedtime. ampicillin 2020-0 2021- No [id number] 500mg Take 1 NPI:183 500 mg 4-23 05-04 capsule by [id number] 1 capsule 00:00: 04:59 mouth 4 00 :00 (four) times daily for 10 days. ampicillin 2020- No [id number] 500mg Take 1 NPI:183 500 mg 4-23 05-04 capsule by [id number] 1 capsule 00:00: 04:59 mouth 4 00 :00 (four) times daily for 10 days. ampicillin 2020- No [id number] 500mg Take 1 NPI:183 500 mg 4-23 05-04 capsule by [id number] 1 capsule 00:00: 04:59 mouth 4 00 :00 (four) times daily for 10 days. ampicillin 2020- No [id number] 500mg Take 1 NPI:183 500 mg 4-23 05-04 capsule by [id number] 1 capsule 00:00: 04:59 mouth 4 00 :00 (four) times daily for 10 days. penicillin 2020- No [id number] 500mg Take 1 NPI:183 v potassium 4-23 05-01 tablet by 13 25956 500 mg 00:00: 04:59 mouth 4 tablet 00 :00 (four) times daily for 7 days. penicillin 2020- No [id number] 500mg Take 1 NPI:183 v potassium 4-23 05-01 tablet by 13 53773 500 mg 00:00: 04:59 mouth 4 tablet 00 :00 (four) times daily for 7 days. penicillin 2020- No [id number] 500mg Take 1 NPI:183 v potassium 4-23 05-01 tablet by 13 34569 500 mg 00:00: 04:59 mouth 4 tablet 00 :00 (four) times daily for 7 days. penicillin 2020- No [id number] 500mg Take 1 NPI:183 v potassium 4-23 05-01 tablet by 13 22290 500 mg 00:00: 04:59 mouth 4 tablet 00 :00 (four) times daily for 7 days. penicillin 2020- No [id number] 500mg Take 1 NPI:183 v potassium 4-23 05-01 tablet by 13 [id number] 500 mg 00:00: 04:59 mouth 4 tablet 00 :00 (four) times daily for 7 days. fluconazole 2020- No [id number] 150mg Take 1 NPI:183 (DIFLUCAN) 03-21- tablet by 131 8781 150 mg 00:00: 04:59 mouth once tablet 00 :00 now for 1 dose. fluconazole 2020- No [id number] 150mg Take 1 NPI:183 (DIFLUCAN) 4-21 03- tablet by 131 [id number] 150 mg 00:00: 04:59 mouth once tablet 00 :00 now for 1 dose. Yes 2{tbl} Take 2 NPI:1 83 vit 2-19 tablets by [id number] calc,iron,f 20:25: mouth olic 29 daily. ( VITAMIN ORAL) Yes 2{tbl} Take 2 NPI:1 83 vit 2-19 tablets by [id number] calc,iron,f 20:25: mouth olic 29 daily. ( VITAMIN ORAL) Yes 2{tbl} Take 2 NPI:1 83 vit 2-19 tablets by [id number] calc,iron,f 20:25: mouth olic 29 daily. ( VITAMIN ORAL) Yes 2{tbl} Take 2 NPI:1 83 vit 2-19 tablets by [id number] calc,iron,f 20:25: mouth olic 29 daily. ( VITAMIN ORAL) Yes 2{tbl} Take 2 NPI:1 83 vit 2-19 tablets by [id number] calc,iron,f 20:25: mouth olic 29 daily. ( VITAMIN ORAL) Yes 2{tbl} Take 2 NPI:1 83 vit 2-19 tablets by [id number] calc,iron,f 20:25: mouth olic 29 daily. ( VITAMIN ORAL) Yes 2{tbl} Take 2 NPI:1 83 vit 2-19 tablets by [id number] calc,iron,f 20:25: mouth olic 29 daily. ( VITAMIN ORAL) Yes 2{tbl} Take 2 NPI:1 83 vit 2-19 tablets by [id number] calc,iron,f 20:25: mouth olic 29 daily. ( VITAMIN ORAL) Yes 2{tbl} Take 2 NPI:1 83 vit 2-19 tablets by [id number] calc,iron,f 20:25: mouth olic 29 daily. ( VITAMIN ORAL) Yes 2{tbl} Take 2 NPI:1 83 vit 2-19 tablets by [id number] calc,iron,f 20:25: mouth olic 29 daily. ( VITAMIN ORAL) Yes 2{tbl} Take 2 NPI:1 83 vit 2-19 tablets by [id number] calc,iron,f 20:25: mouth olic 29 daily. ( VITAMIN ORAL) Yes 2{tbl} Take 2 NPI:1 83 vit 2-19 tablets by [id number] calc,iron,f 20:25: mouth olic 29 daily. ( VITAMIN ORAL) Yes 2{tbl} Take 2 NPI:1 83 vit 2-19 tablets by [id number] calc,iron,f 20:25: mouth olic 29 daily. ( VITAMIN ORAL) Yes 2{tbl} Take 2 NPI:1 83 vit 2-19 tablets by [id number] calc,iron,f 20:25: mouth olic 29 daily. ( VITAMIN ORAL) Yes 2{tbl} Take 2 NPI:1 83 vit 2-19 tablets by [id number] calc,iron,f 20:25: mouth olic 29 daily. ( VITAMIN ORAL) Yes 2{tbl} Take 2 NPI:1 83 vit 2-19 tablets by [id number] calc,iron,f 20:25: mouth olic 29 daily. ( VITAMIN ORAL) Yes 2{tbl} Take 2 NPI:1 83 vit 2-19 tablets by [id number] calc,iron,f 20:25: mouth olic 29 daily. ( VITAMIN ORAL) Yes 2{tbl} Take 2 NPI:1 83 vit 1-22 tablets by [id number] calc,iron,f 22:19: mouth olic 01 daily. ( VITAMIN ORAL) Yes 2{tbl} Take 2 NPI:1 83 vit 1-22 tablets by [id number] calc,iron,f 22:19: mouth olic 01 daily. ( VITAMIN ORAL) Yes 2{tbl} Take 2 NPI:1 83 vit 1-22 tablets by [id number] calc,iron,f 22:19: mouth olic 01 daily. ( VITAMIN ORAL) Yes 2{tbl} Take 2 NPI:1 83 vit 1-22 tablets by [id number] calc,iron,f 22:19: mouth olic 01 daily. ( VITAMIN ORAL) Yes 2{tbl} Take 2 NPI:1 83 vit 1-22 tablets by [id number] calc,iron,f 22:19: mouth olic 01 daily. ( VITAMIN ORAL) Yes 2{tbl} Take 2 NPI:1 83 vit 1-22 tablets by [id number] calc,iron,f 22:19: mouth olic 01 daily. ( VITAMIN ORAL) Yes 2{tbl} Take 2 NPI:1 83 vit 1-22 tablets by [id number] calc,iron,f 22:19: mouth olic 01 daily. ( VITAMIN ORAL) Immunizations Ordered Immunization Filled Immunization Date Status Commen Source Name Name HPV9 2021-05-23 Completed 00:00:00 Varicella 2021-05-23 Completed (varivax)(chicken 00:00:00 pox) HPV9 2021-05-23 Completed 00:00:00 Varicella 2021-05-23 Completed (varivax)(chicken 00:00:00 pox) HPV9 2021-05-23 Completed 00:00:00 Varicella 2021-05-23 Completed (varivax)(chicken 00:00:00 pox) HPV9 2021-05-23 Completed 00:00:00 Varicella 2021-05-23 Completed (varivax)(chicken 00:00:00 pox) HPV9 2021-05-23 Completed 00:00:00 Varicella 2021-05-23 Completed (varivax)(chicken 00:00:00 pox) HPV9 2021-05-23 Completed 00:00:00 Varicella 2021-05-23 Completed (varivax)(chicken 00:00:00 pox) HPV9 2021-05-23 Completed 00:00:00 Varicella 2021-05-23 Completed (varivax)(chicken 00:00:00 pox) HPV9 2021-05-23 Completed 00:00:00 Varicella 2021-05-23 Completed (varivax)(chicken 00:00:00 pox) HPV9 2021-05-23 Completed 00:00:00 Varicella 2021-05-23 Completed (varivax)(chicken 00:00:00 pox) HPV9 2021-05-23 Completed 00:00:00 Varicella 2021-05-23 Completed (varivax)(chicken 00:00:00 pox) HPV9 2021-05-23 Completed 00:00:00 Varicella 2021-05-23 Completed (varivax)(chicken 00:00:00 pox) HPV9 2021-05-23 Completed 00:00:00 Varicella 2021-05-23 Completed (varivax)(chicken 00:00:00 pox) TDAP 2021-03-20 Completed 00:00:00 TDAP 2021-03-20 Completed 00:00:00 TDAP 2021-03-20 Completed 00:00:00 TDAP 2021-03-20 Completed 00:00:00 TDAP 2021-03-20 Completed 00:00:00 TDAP 2021-03-20 Completed 00:00:00 TDAP 2021-03-20 Completed 00:00:00 TDAP 2021-03-20 Completed 00:00:00 TDAP 2021-03-20 Completed 00:00:00 TDAP 2021-03-20 Completed 00:00:00 TDAP 2021-03-20 Completed 00:00:00 TDAP 2021-03-20 Completed 00:00:00 TDAP 2021-03-20 Completed 00:00:00 TDAP 2021-03-20 Completed 00:00:00 TDAP 2021-03-20 Completed 00:00:00 TDAP 2021-03-20 Completed 00:00:00 TDAP 2021-03-20 Completed 00:00:00 TDAP 2021-03-20 Completed 00:00:00 TDAP 2021-03-20 Completed 00:00:00 TDAP 2021-03-20 Completed 00:00:00 TDAP 2021-03-20 Completed 00:00:00 TDAP 2021-03-20 Completed 00:00:00 TDAP 2021-03-20 Completed 00:00:00 TDAP 2021-03-20 Completed 00:00:00 TDAP 2021-03-20 Completed 00:00:00 TDAP 2021-03-20 Completed 00:00:00 TDAP 2021-03-20 Completed 00:00:00 TDAP 2021-03-20 Completed 00:00:00 TDAP 2021-03-20 Completed 00:00:00 TDAP 2021-03-20 Completed 00:00:00 TDAP 2021-03-20 Completed 00:00:00 TDAP 2021-03-20 Completed 00:00:00 TDAP 2021-03-20 Completed 00:00:00 TDAP 2021-03-20 Completed 00:00:00 TDAP 2021-03-20 Completed 00:00:00 TDAP 2021-03-20 Completed 00:00:00 TDAP 2021-03-20 Completed 00:00:00 TDAP 2021-03-20 Completed 00:00:00 TDAP 2021-03-20 Completed 00:00:00 TDAP 2021-03-20 Completed 00:00:00 TDAP 2021-03-20 Completed 00:00:00 TDAP 2021-03-20 Completed 00:00:00 TDAP 2021-03-20 Completed 00:00:00 Vital Signs Vital Name Observation Time Observation Value Comments Source Systolic blood pressure 2021-06-13 19:43:00 117 mm[Hg] Diastolic blood 2021-06-13 19:43:00 82 mm[Hg] NPI:1 [id number] pressure Heart rate 2021-06-13 19:43:00 67 /min NPI:1831 [id number] Body temperature 2021-06-13 19:43:00 37.28 Hawa Respiratory rate 2021-06-13 19:43:00 16 /min Body height 2021-06-13 19:43:00 170.2 cm NPI:1831 248108 Body weight 2021-06-13 19:43:00 82.129 kg NPI:183 736228 BMI 2021-06-13 19:43:00 28.36 kg/m2 NPI:1831 628050 Systolic blood pressure 2021-05-29 19:32:00 123 mm[Hg] Diastolic blood 2021-05-29 19:32:00 80 mm[Hg] NPI:1 [id number] pressure Heart rate 2021-05-29 19:32:00 84 /min NPI:1831 010080 Body temperature 2021-05-29 19:32:00 36.89 Hawa Respiratory rate 2021-05-29 19:32:00 16 /min Body height 2021-05-29 19:32:00 170.2 cm NPI:1831 722246 Body weight 2021-05-29 19:32:00 84.823 kg NPI:1831 617140 BMI 2021-05-29 19:32:00 29.29 kg/m2 NPI:1831 636847 Systolic blood pressure 2021-05-17 19:18:00 123 mm[Hg] Diastolic blood 2021-05-17 19:18:00 70 mm[Hg] NPI:1 [id number] pressure Heart rate 2021-05-17 19:18:00 86 /min NPI:1831 023801 Body temperature 2021-05-17 19:18:00 36.33 Hawa Respiratory rate 2021-05-17 19:18:00 16 /min Body height 2021-05-17 19:18:00 170.2 cm NPI:1831 191515 Body weight 2021-05-17 19:18:00 89.614 kg NPI:1831 800183 BMI 2021-05-17 19:18:00 30.94 kg/m2 NPI:1831 877825 Systolic blood pressure 2021-05-10 18:34:00 116 mm[Hg] Diastolic blood 2021-05-10 18:34:00 80 mm[Hg] NPI:1 [id number] pressure Heart rate 2021-05-10 18:34:00 94 /min NPI:1831 959431 Body temperature 2021-05-10 18:34:00 36.39 Hawa Respiratory rate 2021-05-10 18:34:00 24 /min Body height 2021-05-10 18:34:00 170.2 cm NPI:1831 699095 Body weight 2021-05-10 18:34:00 88.996 kg NPI:1831 879599 BMI 2021-05-10 18:34:00 30.73 kg/m2 NPI:1831 144197 Systolic blood pressure 2021-05-02 15:54:00 123 mm[Hg] Diastolic blood 2021-05-02 15:54:00 78 mm[Hg] NPI:1 [id number] pressure Heart rate 2021-05-02 15:54:00 75 /min NPI:1831 878280 Body temperature 2021-05-02 15:54:00 36.67 Hawa Respiratory rate 2021-05-02 15:54:00 20 /min Body height 2021-05-02 15:54:00 170.2 cm NPI:1831 869859 Body weight 2021-05-02 15:54:00 88.361 kg NPI:1831 437465 BMI 2021-05-02 15:54:00 30.51 kg/m2 NPI:1831 353991 Systolic blood pressure 2021-04-18 14:58:00 117 mm[Hg] Diastolic blood 2021-04-18 14:58:00 69 mm[Hg] NPI:1 [id number] pressure Heart rate 2021-04-18 14:58:00 87 /min NPI:1831 599836 Body temperature 2021-04-18 14:58:00 36.72 Hawa Respiratory rate 2021-04-18 14:58:00 16 /min Body height 2021-04-18 14:58:00 170.2 cm NPI:1831 313141 Body weight 2021-04-18 14:58:00 86.835 kg NPI:1831 150060 BMI 2021-04-18 14:58:00 29.98 kg/m2 NPI:1831 821828 Systolic blood pressure 2021-04-04 16:00:00 121 mm[Hg] Diastolic blood 2021-04-04 16:00:00 76 mm[Hg] NPI:1 [id number] pressure Heart rate 2021-04-04 16:00:00 95 /min NPI:1831 304766 Body temperature 2021-04-04 16:00:00 36.83 Hawa Respiratory rate 2021-04-04 16:00:00 16 /min Body height 2021-04-04 16:00:00 170.2 cm NPI:1831 576719 Body weight 2021-04-04 16:00:00 86.268 kg NPI:1831 820278 BMI 2021-04-04 16:00:00 29.79 kg/m2 NPI:1831 964277 Systolic blood pressure 2021-03-23 07:45:00 110 mm[Hg] Diastolic blood 2021-03-23 07:45:00 66 mm[Hg] NPI:1 [id number] pressure Heart rate 2021-03-23 07:45:00 93 /min NPI:1831 474352 Oxygen saturation in 2021-03-23 07:45:00 98 /min Arterial blood by Pulse oximetry Respiratory rate 2021-03-23 07:30:00 18 /min Body temperature 2021-03-23 07:25:00 37.06 Hawa Body weight 2021-03-23 07:25:00 83.008 kg NPI:1831 029278 BMI 2021-03-23 07:25:00 28.66 kg/m2 NPI:1831 375890 Body height 2021-03-23 05:11:00 170.2 cm NPI:1831 240070 Systolic blood pressure 2021-03-20 21:08:00 119 mm[Hg] Diastolic blood 2021-03-20 21:08:00 76 mm[Hg] NPI:1 [id number] pressure Heart rate 2021-03-20 21:08:00 89 /min NPI:1831 199922 Body temperature 2021-03-20 21:08:00 36.56 Hawa Respiratory rate 2021-03-20 21:08:00 16 /min Body height 2021-03-20 21:08:00 170.2 cm NPI:1831 254409 Body weight 2021-03-20 21:08:00 83.235 kg NPI:1831 817592 BMI 2021-03-20 21:08:00 28.74 kg/m2 NPI:1831 231892 Systolic blood pressure 2021-03-02 19:41:00 113 mm[Hg] Diastolic blood 2021-03-02 19:41:00 65 mm[Hg] NPI:1 [id number] pressure Heart rate 2021-03-02 19:41:00 83 /min NPI:1831 232478 Body temperature 2021-03-02 19:41:00 36.83 Hawa Respiratory rate 2021-03-02 19:41:00 16 /min Body height 2021-03-02 19:41:00 170.2 cm NPI:1831 685494 Body weight 2021-03-02 19:41:00 79.89 kg NPI:1831 887612 BMI 2021-03-02 19:41:00 27.59 kg/m2 NPI:1831 774878 Systolic blood pressure 2021-02-16 18:49:00 114 mm[Hg] Diastolic blood 2021-02-16 18:49:00 71 mm[Hg] NPI:1 [id number] pressure Heart rate 2021-02-16 18:49:00 99 /min NPI:1831 907864 Body temperature 2021-02-16 18:49:00 36.44 Hawa Respiratory rate 2021-02-16 18:49:00 16 /min Body height 2021-02-16 18:49:00 170.2 cm NPI:1831 864984 Body weight 2021-02-16 18:49:00 79.861 kg NPI:1831 359591 BMI 2021-02-16 18:49:00 27.58 kg/m2 NPI:1831 896874 Systolic blood pressure 2021-01-19 20:24:00 114 mm[Hg] Diastolic blood 2021-01-19 20:24:00 67 mm[Hg] NPI:1 [id number] pressure Heart rate 2021-01-19 20:24:00 87 /min NPI:1831 760990 Body temperature 2021-01-19 20:24:00 34.94 Hawa Respiratory rate 2021-01-19 20:24:00 16 /min Body height 2021-01-19 20:24:00 170.2 cm NPI:1831 065807 Body weight 2021-01-19 20:24:00 76.374 kg NPI:1831 682582 BMI 2021-01-19 20:24:00 26.37 kg/m2 NPI:1831 069159 Systolic blood pressure 2020-12-22 22:07:00 98 mm[Hg] Diastolic blood 2020-12-22 22:07:00 64 mm[Hg] NPI:1 [id number] pressure Heart rate 2020-12-22 22:07:00 75 /min NPI:1831 091340 Body temperature 2020-12-22 22:07:00 36.67 Hawa Respiratory rate 2020-12-22 22:07:00 16 /min Body height 2020-12-22 22:07:00 170.2 cm NPI:1831 074067 Body weight 2020-12-22 22:07:00 74.39 kg NPI:1831 177921 BMI 2020-12-22 22:07:00 25.69 kg/m2 NPI:1831 375151 Procedures Procedure Date / Time Performed Performing Clinician Sourc e POCT URINALYSIS 2021-05-17 19:19:00 Akinsipe Rosamaria C NPI:[id number] POCT URINALYSIS 2021-05-10 18:36:00 Akinsipe Rosamaria C NPI:943 [id number] POCT URINALYSIS 2021-05-02 15:56:00 Akinsipe Rosamaria C NPI:832 [id number] POCT URINALYSIS 2021-04-18 15:01:00 Akinsipe, Rosamaria C NPI:827 [id number] POCT URINALYSIS 2021-04-04 16:03:00 Akinsipe, Rosamaria C NPI:297 [id number] COVID-19 (ID NOW RAPID 2021-03-23 05:31:00 Yvette Mcneill NPI:1 [id number] TESTING) POCT URINALYSIS 2021-03-20 21:10:00 Akinsipe Rosamaria C NPI:363 [id number] POCT URINALYSIS 2021-03-20 21:09:00 Akinsipe, Rosamaria C NPI:[id number] TDAP VACCINE, >11 YRS, 2021-03-20 21:01:04 Akinsipe Rosamaria C IM GLUCOSE 1 HOUR POST 2021-03-02 20:40:00 Akinsipe Rosamaria C NPI :[id number] PRANDIAL CBC WITH DIFF 2021-03-02 20:40:00 Akinsipe, Rosamaria C NPI:639 [id number] POCT URINALYSIS 2021-03-02 19:44:00 Akinsipe, Rosamaria C NPI:210 [id number] POCT URINALYSIS 2021-02-16 18:50:00 Akinsipe, Rosamaria C NPI:935 [id number] POCT URINALYSIS 2021-01-19 20:26:00 Akinsipe Rosamaria C NPI:603 [id number] POCT URINALYSIS W/O 2020-12-22 22:07:00 Akinsipe Rosamaria C NPI :[id number] SPECIFIC GRAVITY POCT TEST 2020-12-22 22:03:00 Akinsipe, Rosamaria C NPI :[id number] REPORT OF 2020-12-22 06:01:00 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, 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 I:[id number] Name Encounters Start End Encounter Admission Attending Care Care Encounter Source Date/Time Date/Time Type Type Clinicians Facility Department ID 2021-10-01 Emergency [facility] [id number] NPI:183 02:43:23 [id number] 4201-10-31 Outpatient X [facility] [id number] NPI:183 14:47:49 [id number] 6023-10-31 Emergency [facility] [id number] NPI:183 14:47:06 [id number] 0831-10-14 Outpatient [facility] [id number] [place] 20:54:18 [id number] [facility] 2021-10-22 2021-10-22 Outpatient R [facility] [id number] NPI:183 13:00:00 13:00:00 [id number] 2021-10-22 2021-10-22 Outpatient R [facility] [id number] NPI:183 13:00:00 13:00:00 [id number] 2021-10-22 2021-10-22 Ciirlo Dillard [facility] 1.2.840.114 [id number] NPI:183 00:00:00 00:00:00 (Out) Gemma CITY ADMINISTRATOR 350.1.13.10 [id number] [facility] 4.2.7.2.686 MATERNAL [id number] & CHILD 111 [facility] 2021-10-22 2021-10-22 Gage Dillard [facility] 1.2.754.716 [id number] NPI:183 00:00:00 00:00:00 Gemma CITY ADMINISTRATOR 350.1.13.10 [id number] [facility] 4.2.7.2.686 MATERNAL [id number] & CHILD 111 [facility] 2021-09-19 2021-09-19 Outpatient R [facility] [id number] NPI:183 13:00:00 13:00:00 [id number] 2021-09-19 2021-09-19 Outpatient R [facility] [id number] NPI:183 13:00:00 13:00:00 [id number] 2021-09-19 2021-09-19 Hodan Guillory [facility] 1.2.840.114 [id number] NPI:183 00:00:00 00:00:00 (Out) Rmchp Rgv CITY ADMINISTRATOR 350.1.13.10 [id number] Alannahit Obgyn [facility] 4.2.7.2.686 MATERNAL [id number] & CHILD 111 [facility] 2021-07-04 2021-07-04 Outpatient R AKINSIPE, [facility] [id number] [id number] NPI:183 15:45:00 15:45:00 ROSAMARIA [id number] 2021-07-04 2021-07-04 Outpatient R AKINSIPE, [facility] [id number] NPI:183 15:45:00 15:45:00 ROSAMARIA [id number] 81 2021-06-27 2021-06-27 Letter Yuri, [facility] 1.2.840.114 [id number] NPI:183 00:00:00 00:00:00 (Out) Ange Juliana CITY ADMINISTRATOR 350.1.13.10 [id number] [facility] 4.2.7.2.686 MATERNAL [id number] & CHILD 111 [facility] 2021-06-13 2021-06-13 Routine Akinsipe, [facility] 1.2.260.364 [id number] NPI:183 14:35:04 15:04:15 Rosamaria C CITY ADMINISTRATOR 350.1.13.10 [id number] Visit [facility] 4.2.7.2.686 MATERNAL [id number] & CHILD 107 [facility] 2021-06-13 2021-06-13 Outpatient R AKINSIPE, [facility] [id number] NPI:183 11:00:00 11:00:00 ROSAMARIA [id number] 2021-06-07 2021-06-07 Outpatient INDUCTION, [facility] [id number] NPI:183 07:00:00 07:00:00 GEOVANNA [id number] 2021-05-29 2021-05-29 Routine Akinsipe, [facility] 1.2.228.253 [id number] NPI:183 14:15:55 15:07:15 Rosamaria C CITY ADMINISTRATOR 350.1.13.10 [id number] Visit [facility] 4.2.7.2.686 MATERNAL [id number] & CHILD 107 [facility] 2021-05-29 2021-05-29 Outpatient R AKINSIPE, [facility] [id number] NPI:183 10:00:00 10:00:00 ROSAMARIA [id number] 2021-05-29 2021-05-29 Outpatient R AKINSIPE, [facility] [id number] NPI:183 10:00:00 10:00:00 ROSAMARIA [id number] 2021-05-27 2021-05-27 Nurse GEOVANNA Anderson 1.2.840.114 [id number] NPI:183 00:00:00 00:00:00 Triage Chapo SUSHIL 350.1.13.10 [id number] [place] [id number] 2021-05-26 2021-05-26 Nurse GEOVANNA Amin 1.2.840.114 [id number] NPI:183 00:00:00 00:00:00 Triage Libra Soto SUSHIL 350.1.13.10 13 [id number] [place] 18988.7.2.686 [id number] 2021-05-25 2021-05-25 [facility] 1.2.840.114 [id number] NPI:183 00:00:00 00:00:00 Rosamaria C CITY ADMINISTRATOR 350.1.13.10 [id number] [place] [id number] MATERNAL [id number] & CHILD 107 [facility] 2021-05-24 2021-05-24 Outpatient R AKINSIPE, [facility] [id number] 9A-20 NPI:183 15:45:00 15:45:00 ROSAMARIA [id number] 81 2021-05-24 2021-05-24 Outpatient R AKINSIPE, [facility] [id number] NPI:183 15:45:00 15:45:00 ROSAMARIA [id number] 81 2021-05-17 2021-05-17 Routine Akinsipe, [facility] 1.2.949.992 [id number] NPI:183 14:12:41 14:37:55 Rosamaria C CITY ADMINISTRATOR 350.1.13.[id number] [facility] REGIONAL 4.2.7.2.686 MATERNAL [id number] & CHILD 107 [facility] 2021-05-17 2021-05-17 Outpatient R AKINSIPE, [facility] [id number] 9A-[id number] NPI:183 14:00:00 14:00:00 ROSAMARIA [id number] 2021-05-17 2021-05-17 Outpatient R AMELIA [facility] [id number] NPI:183 14:00:00 14:00:00 ROSAMARIA [id number] 81 2021-05-15 2021-05-15 [facility] 1.2.840.114 [id number] NPI:183 00:00:00 00:00:00 Rosamaria C CITY ADMINISTRATOR 350.1.13.10 [id number] [facility] 4.2.7.2.686 MATERNAL [id number] & CHILD 107 [facility] 2021-05-14 2021-05-14 Property Disposal Manager Lab[facility] 1.2.840. 114 [id number] NPI:183 13:19:12 13:34:12 Visit Rosamaria Cisneros C CITY ADMINISTRATOR 350.1.13. 10 [id number] [place] [id number] MATERNAL [id number] & CHILD 107 [facility] 2021-05-14 2021-05-14 Outpatient R [facility] [id number] NPI:183 13:00:00 13:00:00 [id number] 2021-05-14 2021-05-14 Outpatient R AMELIA [facility] [id number] NPI:183 13:00:00 13:00:00 ROSAMARIA [id number] 81 2021-05-11 2021-05-11 [facility] 1.2.840.114 [id number] NPI:183 00:00:00 00:00:00 Rosamaria C CITY ADMINISTRATOR 350.1.13.10 [id number] [facility] 4.2.7.2.686 MATERNAL [id number] & CHILD 107 [facility] 2021-05-10 2021-05-10 [facility] 1.2.527.533 [id number] NPI:183 13:12:01 13:47:25 Rosmaaria C CITY ADMINISTRATOR 350.1.13.10 [id number] Visit [facility] 4.2.7.2.686 MATERNAL [id number] & CHILD 107 [facility] 2021-05-10 2021-05-10 Outpatient R AKINSIPE, [facility] [id number] NPI:183 13:00:00 13:00:00 ROSAMARIA [id number] 2021-05-10 2021-05-10 Outpatient R AKINSIPE, [facility] [id number] NPI:183 13:00:00 13:00:00 ROSAMARIA [id number] 81 2021-05-03 2021-05-03 Telephone Akinsipe, [facility] 1.2.840.114 [id number] NPI:183 00:00:00 00:00:00 Rosamaria C CITY ADMINISTRATOR 350.1.13.10 [id number] [facility] 4.2.7.2.686 MATERNAL [id number] & CHILD 107 [facility] 2021-05-02 2021-05-02 Routine Akinsipe, [facility] 1.2.351.215 [id number] NPI:183 10:46:57 11:14:38 Rosamaria C CITY ADMINISTRATOR 350.1.13.10 [id number] Visit [facility] 4.2.7.2.686 MATERNAL [id number] & CHILD 107 [facility] 2021-05-02 2021-05-02 Outpatient R AKINSIPE, [facility] [id number] NPI:183 10:45:00 10:45:00 ROSAMARIA [id number] 2021-05-02 2021-05-02 Outpatient R AKINSIPE, [facility] [id number] NPI:183 10:45:00 10:45:00 ROSAMARIA [id number] 81 2021-04-18 2021-04-18 Routine Akinsipe, [facility] 1.2.753.831 [id number] NPI:183 09:27:48 10:36:13 Rosamaria C CITY ADMINISTRATOR 350.1.13.10 [id number] Visit [facility] 4.2.7.2.686 MATERNAL [id number] & CHILD 107 [facility] 2021-04-18 2021-04-18 Outpatient R AKINSIPE, [facility] [id number] [id number] NPI:183 09:30:00 09:30:00 ROSAMARIA [id number] 2021-04-18 2021-04-18 Outpatient R RIGOTRINITY, [facility] [id number] NPI:183 09:30:00 09:30:00 ROSAMARIA [id number] 81 2021-04-09 2021-04-09 [facility] 1.2.840.114 [id number] NPI:183 00:00:00 00:00:00 Rosamaria C CITY ADMINISTRATOR 350.1.13.10 [id number] [facility] 4.2.7.2.686 MATERNAL [id number] & CHILD 107 [facility] 2021-04-04 2021-04-04 [facility] 1.2.907.790 [id number] NPI:183 10:53:37 11:14:08 Rosamaria C CITY ADMINISTRATOR 350.1.13.10 [id number] [facility] 4.2.7.2.686 MATERNAL [id number] & CHILD 107 [facility] 2021-04-04 2021-04-04 Outpatient R RIGOTRINITY, [facility] [id number] NPI:183 10:45:00 10:45:00 ROSAMARIA [id number] 2021-04-04 2021-04-04 Outpatient R CONGPE, [facility] [id number] NPI:183 10:45:00 10:45:00 ROSAMARIA [id number] 2021-03-23 2021-03-23 Emergency Yvette Mcneill [facility] 1.2.840.1 [id number] NPI:183 00:15:00 03:21:00 [facility] 350.1.13.10 1 [id number] [place] 4.2.7.2.686 [place] [id number] [address] 2021-03-23 2021-03-23 [facility] 1.2.840.114 [id number] NPI:183 00:00:00 00:00:00 Rosamaria C CITY ADMINISTRATOR 350.1.13.10 [id number] [facility] 4.2.7.2.686 MATERNAL [id number] & CHILD 107 [facility] 2021-03-21 2021-03-21 Telephone [facility] 1.2.840.114 [id number] NPI:183 00:00:00 00:00:00 Rosamaria C CITY ADMINISTRATOR 350.1.13.10 [id number] [facility] 4.2.7.2.686 MATERNAL [id number] & CHILD 107 [facility] 2021-03-20 2021-03-20 Routine [facility] 1.2.924.651 [id number] NPI:183 15:57:48 16:53:52 Rosamaria C CITY ADMINISTRATOR 350.1.13.10 [id number] Visit [facility] 4.2.7.2.686 MATERNAL [id number] & CHILD 107 [facility] 2021-03-20 2021-03-20 Outpatient R [facility] [id number] NPI:183 15:45:00 15:45:00 ROSAMARIA [id number] 2021-03-20 2021-03-20 Outpatient R [facility] [id number] NPI:183 15:45:00 15:45:00 ROSAMARIA [id number] 81 2021-03-12 2021-03-12 Abstract Jermain [facility] 1.2.840.114 [id number] NPI:183 00:00:00 00:00:00 Beck Jauregui CITY ADMINISTRATOR 350.1.13.10 [id number] [facility] 4.2.7.2.686 MATERNAL [id number] & CHILD 107 [facility] 2021-03-09 2021-03-09 Property Disposal Manager [facility] 1.[facility] .840.114 [id number] NPI:183 13:49:17 14:19:17 Visit Elsie Robles CITY ADMINISTRATOR 350.1.13.10 [id number] [facility] 4.2.7.2.686 MATERNAL [id number] & CHILD 369 [facility] 2021-03-09 2021-03-09 Outpatient R [facility] [id number] -[id number] NPI:183 14:00:00 14:00:00 [id number] 2021-03-09 2021-03-09 Outpatient P [facility] [id number] NPI:183 13:45:00 13:45:00 [id number] 2021-03-02 2021-03-02 Routine Akinsipe, [facility] 1.2.006.858 [id number] NPI:183 14:14:09 15:10:30 Rosamaria C CITY ADMINISTRATOR 350.1.13.10 [id number] Visit [facility] 4.2.7.2.686 MATERNAL [id number] & CHILD 107 [facility] 2021-03-02 2021-03-02 Outpatient R AKINSIPE, [facility] [id number] NPI:183 14:15:00 14:15:00 ROSAMARIA [id number] 2021-03-02 2021-03-02 Outpatient R AKINSIPE, [facility] [id number] NPI:183 14:15:00 14:15:00 ROSAMARIA [id number] 81 2021-03-02 2021-03-02 Outpatient R AKINS[place], [facility] [id number] NPI:183 14:15:00 14:15:00 ROSAMARIA [id number] 81 2021-02-16 2021-02-16 Routine Akinsipe, [facility] 1.2.938.183 [id number] NPI:183 13:41:01 14:07:51 Rosamaria C CITY ADMINISTRATOR 350.1.13.10 [id number] Visit [facility] 4.2.7.2.686 MATERNAL [id number] & CHILD 107 [facility] 2021-02-16 2021-02-16 Outpatient R AKINSIPE, [facility] [id number] NPI:183 14:00:00 14:00:00 ROSAMARIA [id number] 81 2021-02-16 2021-02-16 Outpatient R AKINSIPE, [facility] [id number] NPI:183 14:00:00 14:00:00 ROSAMARIA [id number] 81 2021-01-31 2021-01-31 Property Disposal Manager Ultrasound, [facility] 1.2 .840.114 [id number] NPI:183 13:01:03 14:01:03 Visit June De CITY ADMINISTRATOR 350.1. 13.10 [id number] [facility] 4.2.7.2.686 MATERNAL [id number] & CHILD 369 [facility] 2021-01-31 2021-01-31 Outpatient [facility] [id number] -[id number] NPI:183 13:00:00 13:00:00 [id number] 2021-01-31 2021-01-31 Outpatient P [facility] [id number] NPI:183 13:00:00 13:00:00 [id number] 2021-01-31 2021-01-31 Abstract Aly, [facility] 1.2.840.114 [id number] NPI:183 00:00:00 00:00:00 Rosanilnda R CITY ADMINISTRATOR 350.1.13.10 [id number] [facility] 4.2.7.2.686 MATERNAL [id number] & CHILD 107 [facility] 2021-01-24 2021-01-24 [facility] 1.2.840.114 [id number] NPI:183 00:00:00 00:00:00 Rosamaria C CITY ADMINISTRATOR 350.1.13.10 [id number] [facility] 4.2.7.2.686 MATERNAL [id number] & CHILD 107 [facility] 2021-01-19 2021-01-19 [facility] 1.2.214.761 [id number] NPI:183 14:08:47 15:00:13 Rosamaria C CITY ADMINISTRATOR 350.1.13.10 [id number] Visit [facility] 4.2.7.2.686 MATERNAL [id number] & CHILD 107 [facility] 2021-01-19 2021-01-19 Outpatient R AKINSIPE, [facility] [id number] [id number] NPI:183 14:00:00 14:00:00 ROSAMARIA [id number] 81 2021-01-19 2021-01-19 Outpatient R AKINTRINITY, [facility] [id number] NPI:183 14:00:00 14:00:00 ROSAMARIA [id number] 81 2020-12-25 2020-12-25 Property Disposal Manager Lab, [facility] 1.2.840. 114 [id number] NPI:183 08:23:26 08:36:26 Visit Amelia Rosamaria C CITY ADMINISTRATOR [id number]. 10 [id number] [facility] [id number] MATERNAL [id number] & CHILD 107 [facility] 2020-12-25 2020-12-25 Property Disposal Manager Lab, [facility] [id number] 08:23:26 08:36:26 Visit [facility] CITY ADMINISTRATOR 350.1.13.10 [facility] 4.2.7.2.686 MATERNAL [id number] & CHILD 107 [facility] 2020-12-25 2020-12-25 Outpatient R [facility] [id number] NPI:183 08:30:00 08:30:00 [id number] 2020-12-25 2020-12-25 Outpatient R [facility] [id number] NPI:183 08:30:00 08:30:00 [id number] 2020-12-25 2020-12-25 [facility] [id number] NPI:183 00:00:00 00:00:00 Management Rosamaria C CITY ADMINISTRATOR [id number] [id number] [place] [id number] MATERNAL [id number] & CHILD 107 [facility] 2020-12-22 2020-12-22 [facility] [id number] NPI:183 16:00:38 16:43:23 Rosamaria C CITY ADMINISTRATOR [id number] [id number] Visit REGIONAL 4.2.7.2.686 MATERNAL [phone] & CHILD 107 [facility] 2020-12-22 2020-12-22 [id number] NPI:183 15:30:00 15:30:00 ROSAMARIA [id number] 2020-12-22 2020-12-22 [place]ia [place] 1.2.840.114 [id number] NPI:183 00:00:00 00:00:00 Only Unassigned, SUSHIL 350.1.13.10 [id number] [facility] 4.2.7.2.686 [id number] 2020-12-20 2020-12-20 Outpatient R AMELIA, [facility] [id number] NPI:183 13:30:00 13:30:00 ROSAMARIA [id number] Results Test Description Test Time Test Comments Results Result Comments Source POCT URINALYSIS W SPECIFIC GRAVITY 2021-05-17 19:19:00 Test Item Value Reference Range Interpretation Comme nts POCT U SP GRAV (test code = 3255) . 1.005-1.025 POCT PH U (test code = 3254) . 5-8 POCT U LEUK EST (test code = 3263) . Negative - Negative POCT U NIT (test code = 3262) . Negative - Negative POCT U PROT (test code = 3259) Trace Negative - Negative POCT U GLU (test code = 3256) Neg Negative - Negative POCT U KETONE (test code = 3258) . Negative - Negative POCT U UROBILI (test code = 3260) . 0.2-1 POCT U BILI (test code = 3261) . Negative - Negative POCT U BLD (test code = 3257) . Negative - Negative POCT U COLOR (test code = 3266) POCT U APPEAR (test code = 3267) NPI:[id number] URINALYSIS W SPECIFIC [id number] 18:36:00 Test Item Value Reference Range Interpretation Comments POCT U SP GRAV (test code = . 1.005-1.025 3255) POCT PH U (test code = 3254) . 5-8 POCT U LEUK EST (test code = . Negative - Negative 3263) POCT U NIT (test code = 3262) . Negative - Negative POCT U PROT (test code = 3259) trace Negative - Negative POCT U GLU (test code = 3256) negative Negative - Negative POCT U KETONE (test code = 3258) . Negative - Negative POCT U UROBILI (test code = . 0.2-1 3260) POCT U BILI (test code = 3261) . Negative - Negative POCT U BLD (test code = 3257) . Negative - Negative POCT U COLOR (test code = 3266) POCT U APPEAR (test code = 3267) NPI:[id number] URINALYSIS W SPECIFIC [id number] 18:36:00 Test Item Value Reference Range Interpretation Comments POCT U SP GRAV (test code = . 1.005-1.025 3255) POCT PH U (test code = 3254) . 5-8 POCT U LEUK EST (test code = . Negative - Negative 3263) POCT U NIT (test code = 3262) . Negative - Negative POCT U PROT (test code = 3259) trace Negative - Negative POCT U GLU (test code = 3256) negative Negative - Negative POCT U KETONE (test code = 3258) . Negative - Negative POCT U UROBILI (test code = . 0.2-1 3260) POCT U BILI (test code = 3261) . Negative - Negative POCT U BLD (test code = 3257) . Negative - Negative POCT U COLOR (test code = 3266) POCT U APPEAR (test code = 3267) NPI:[id number] URINALYSIS W SPECIFIC [id number] 15:57:00 Test Item Value Reference Range Interpretation Comments POCT U SP GRAV (test code = . 1.005-1.025 3255) POCT PH U (test code = 3254) . 5-8 POCT U LEUK EST (test code = . Negative - Negative 3263) POCT U NIT (test code = 3262) . Negative - Negative POCT U PROT (test code = 3259) negative Negative - Negative POCT U GLU (test code = 3256) negative Negative - Negative POCT U KETONE (test code = 3258) . Negative - Negative POCT U UROBILI (test code = . 0.2-1 3260) POCT U BILI (test code = 3261) . Negative - Negative POCT U BLD (test code = 3257) . Negative - Negative POCT U COLOR (test code = 3266) POCT U APPEAR (test code = 3267) NPI:[id number] URINALYSIS W SPECIFIC [id number] 15:57:00 Test Item Value Reference Range Interpretation Comments POCT U SP GRAV (test code = . 1.005-1.025 3255) POCT PH U (test code = 3254) . 5-8 POCT U LEUK EST (test code = . Negative - Negative 3263) POCT U NIT (test code = 3262) . Negative - Negative POCT U PROT (test code = 3259) negative Negative - Negative POCT U GLU (test code = 3256) negative Negative - Negative POCT U KETONE (test code = 3258) . Negative - Negative POCT U UROBILI (test code = . 0.2-1 3260) POCT U BILI (test code = 3261) . Negative - Negative POCT U BLD (test code = 3257) . Negative - Negative POCT U COLOR (test code = 3266) POCT U APPEAR (test code = 3267) NPI:[id number] URINALYSIS W SPECIFIC [id number] 15:57:00 Test Item Value Reference Range Interpretation Comments POCT U SP GRAV (test code = . 1.005-1.025 3255) POCT PH U (test code = 3254) . 5-8 POCT U LEUK EST (test code = . Negative - Negative 3263) POCT U NIT (test code = 3262) . Negative - Negative POCT U PROT (test code = 3259) negative Negative - Negative POCT U GLU (test code = 3256) negative Negative - Negative POCT U KETONE (test code = 3258) . Negative - Negative POCT U UROBILI (test code = . 0.2-1 3260) POCT U BILI (test code = 3261) . Negative - Negative POCT U BLD (test code = 3257) . Negative - Negative POCT U COLOR (test code = 3266) POCT U APPEAR (test code = 3267) NPI:[id number] URINALYSIS W SPECIFIC [id number] 15:01:00 Test Item Value Reference Range Interpretation Comments POCT U SP GRAV (test code = 3255) . 1.005-1.025 POCT PH U (test code = 3254) . 5-8 POCT U LEUK EST (test code = 3263) . Negative - Negative POCT U NIT (test code = 3262) . Negative - Negative POCT U PROT (test code = 3259) Trace Negative - Negative POCT U GLU (test code = 3256) Neg Negative - Negative POCT U KETONE (test code = 3258) . Negative - Negative POCT U UROBILI (test code = 3260) . 0.2-1 POCT U BILI (test code = 3261) . Negative - Negative POCT U BLD (test code = 3257) . Negative - Negative POCT U COLOR (test code = 3266) POCT U APPEAR (test code = 3267) NPI:[id number] URINALYSIS W SPECIFIC [id number] 15:01:00 Test Item Value Reference Range Interpretation Comments POCT U SP GRAV (test code = 3255) . 1.005-1.025 POCT PH U (test code = 3254) . 5-8 POCT U LEUK EST (test code = 3263) . Negative - Negative POCT U NIT (test code = 3262) . Negative - Negative POCT U PROT (test code = 3259) Trace Negative - Negative POCT U GLU (test code = 3256) Neg Negative - Negative POCT U KETONE (test code = 3258) . Negative - Negative POCT U UROBILI (test code = 3260) . 0.2-1 POCT U BILI (test code = 3261) . Negative - Negative POCT U BLD (test code = 3257) . Negative - Negative POCT U COLOR (test code = 3266) POCT U APPEAR (test code = 3267) NPI:[id number] URINALYSIS W SPECIFIC [id number] 16:03:00 Test Item Value Reference Range Interpretation Comments POCT U SP GRAV (test code = . 1.005-1.025 3255) POCT PH U (test code = 3254) . 5-8 POCT U LEUK EST (test code = . Negative - Negative 3263) POCT U NIT (test code = 3262) . Negative - Negative POCT U PROT (test code = 3259) negative Negative - Negative POCT U GLU (test code = 3256) negative Negative - Negative POCT U KETONE (test code = 3258) . Negative - Negative POCT U UROBILI (test code = . 0.2-1 3260) POCT U BILI (test code = 3261) . Negative - Negative POCT U BLD (test code = 3257) . Negative - Negative POCT U COLOR (test code = 3266) POCT U APPEAR (test code = 3267) NPI:[id number] (ID NOW RAPID TESTING)2021-03-23 05:53:18 Test Item Value Reference Range Interpretation Comments SARS-CoV-2 Rapid ID NOW Not Detected Not Detected (test code = 58402-8) YUMIKO (test code = YUMIKO) ID NOW COVID-19 Assay is an isothermal nucleic acid amplification test intended for the qualitative detection of nucleic acid from SARS-CoV-2 viral RNA in nasopharyngeal (SENIOR NET ENGINEER) specimens. It is used under Emergency Use Authorization (EUA) by FDA. The limit of detection (LOD) of the assay is 125 Genome Equivalents/mL. A positive result is indicative of the presence of SARS-CoV-2 RNA. ?Clinical correlation with patient history and other diagnostic information is necessary to determine patient infection status. A negative (Not Detected) result does not preclude SARS-CoV-2 infection. In patients with clinical symptoms and other tests that are consistent with SARS-CoV-2 infection, negative results should be treated as presumptive negative and a new specimen should be tested with alternative PCR molecular test. Invalid: Please collect a new specimen for repeat patient testing if clinically indicated. Lab Interpretation Normal (test code = 20327-3) NPI:[id number] URINALYSIS W SPECIFIC [id number] 21:11:00 Test Item Value Reference Range Interpretation Comments POCT U SP GRAV (test code = . 1.005-1.025 3255) POCT PH U (test code = 3254) 6 mg/dl 5-8 POCT U LEUK EST (test code = trace Negative - Negative 3263) POCT U NIT (test code = 3262) negative Negative - Negative POCT U PROT (test code = 3259) trace Negative - Negative POCT U GLU (test code = 3256) negative Negative - Negative POCT U KETONE (test code = 3258) negative Negative - Negative POCT U UROBILI (test code = . 0.2-1 3260) POCT U BILI (test code = 3261) . Negative - Negative POCT U BLD (test code = 3257) negative Negative - Negative POCT U COLOR (test code = 3266) POCT U APPEAR (test code = 3267) NPI:[id number] URINALYSIS W SPECIFIC [id number] 21:11:00 Test Item Value Reference Range Interpretation Comments POCT U SP GRAV (test code = . 1.005-1.025 3255) POCT PH U (test code = 3254) 6 mg/dl 5-8 POCT U LEUK EST (test code = trace Negative - Negative 3263) POCT U NIT (test code = 3262) negative Negative - Negative POCT U PROT (test code = 3259) trace Negative - Negative POCT U GLU (test code = 3256) negative Negative - Negative POCT U KETONE (test code = 3258) negative Negative - Negative POCT U UROBILI (test code = . 0.2-1 3260) POCT U BILI (test code = 3261) . Negative - Negative POCT U BLD (test code = 3257) negative Negative - Negative POCT U COLOR (test code = 3266) POCT U APPEAR (test code = 3267) NPI:[id number] URINALYSIS W SPECIFIC [id number] 21:11:00 Test Item Value Reference Range Interpretation Comments POCT U SP GRAV (test code = . 1.005-1.025 3255) POCT PH U (test code = 3254) 6 mg/dl 5-8 POCT U LEUK EST (test code = trace Negative - Negative 3263) POCT U NIT (test code = 3262) negative Negative - Negative POCT U PROT (test code = 3259) trace Negative - Negative POCT U GLU (test code = 3256) negative Negative - Negative POCT U KETONE (test code = 3258) negative Negative - Negative POCT U UROBILI (test code = . 0.2-1 3260) POCT U BILI (test code = 3261) . Negative - Negative POCT U BLD (test code = 3257) negative Negative - Negative POCT U COLOR (test code = 3266) POCT U APPEAR (test code = 3267) NPI:[id number] URINALYSIS W SPECIFIC [id number] 21:11:00 Test Item Value Reference Range Interpretation Comments POCT U SP GRAV (test code = . 1.005-1.025 3255) POCT PH U (test code = 3254) 6 mg/dl 5-8 POCT U LEUK EST (test code = trace Negative - Negative 3263) POCT U NIT (test code = 3262) negative Negative - Negative POCT U PROT (test code = 3259) trace Negative - Negative POCT U GLU (test code = 3256) negative Negative - Negative POCT U KETONE (test code = 3258) negative Negative - Negative POCT U UROBILI (test code = . 0.2-1 3260) POCT U BILI (test code = 3261) . Negative - Negative POCT U BLD (test code = 3257) negative Negative - Negative POCT U COLOR (test code = 3266) POCT U APPEAR (test code = 3267) NPI:[id number] URINALYSIS W SPECIFIC [id number] 21:11:00 Test Item Value Reference Range Interpretation Comments POCT U SP GRAV (test code = . 1.005-1.025 3255) POCT PH U (test code = 3254) 6 mg/dl 5-8 POCT U LEUK EST (test code = trace Negative - Negative 3263) POCT U NIT (test code = 3262) negative Negative - Negative POCT U PROT (test code = 3259) trace Negative - Negative POCT U GLU (test code = 3256) negative Negative - Negative POCT U KETONE (test code = 3258) negative Negative - Negative POCT U UROBILI (test code = . 0.2-1 3260) POCT U BILI (test code = 3261) . Negative - Negative POCT U BLD (test code = 3257) negative Negative - Negative POCT U COLOR (test code = 3266) POCT U APPEAR (test code = 3267) NPI:[id number] URINALYSIS W SPECIFIC [id number] 21:11:00 Test Item Value Reference Range Interpretation Comments POCT U SP GRAV (test code = . 1.005-1.025 3255) POCT PH U (test code = 3254) 6 mg/dl 5-8 POCT U LEUK EST (test code = trace Negative - Negative 3263) POCT U NIT (test code = 3262) negative Negative - Negative POCT U PROT (test code = 3259) trace Negative - Negative POCT U GLU (test code = 3256) negative Negative - Negative POCT U KETONE (test code = 3258) negative Negative - Negative POCT U UROBILI (test code = . 0.2-1 3260) POCT U BILI (test code = 3261) . Negative - Negative POCT U BLD (test code = 3257) negative Negative - Negative POCT U COLOR (test code = 3266) POCT U APPEAR (test code = 3267) NPI:[id number] URINALYSIS W SPECIFIC [id number] 21:09:00 Test Item Value Reference Range Interpretation Comments POCT U SP GRAV (test code = . 1.005-1.025 3255) POCT PH U (test code = 3254) 6 mg/dl 5-8 POCT U LEUK EST (test code = trace Negative - Negative 3263) POCT U NIT (test code = 3262) negative Negative - Negative POCT U PROT (test code = 3259) trace Negative - Negative POCT U GLU (test code = 3256) negative Negative - Negative POCT U KETONE (test code = 3258) negative Negative - Negative POCT U UROBILI (test code = . 0.2-1 0) POCT U BILI (test code = 3261) . Negative - Negative POCT U BLD (test code = 3257) negative Negative - Negative POCT U COLOR (test code = 3266) POCT U APPEAR (test code = 3267) NPI:[id number] URINALYSIS W SPECIFIC [id number] 21:09:00 Test Item Value Reference Range Interpretation Comments POCT U SP GRAV (test code = . 1.005-1.025 3255) POCT PH U (test code = 3254) 6 mg/dl 5-8 POCT U LEUK EST (test code = trace Negative - Negative 3263) POCT U NIT (test code = 3262) negative Negative - Negative POCT U PROT (test code = 3259) trace Negative - Negative POCT U GLU (test code = 3256) negative Negative - Negative POCT U KETONE (test code = 3258) negative Negative - Negative POCT U UROBILI (test code = . 0.2-1 3260) POCT U BILI (test code = 3261) . Negative - Negative POCT U BLD (test code = 3257) negative Negative - Negative POCT U COLOR (test code = 3266) POCT U APPEAR (test code = 3267) NPI:[id number] URINALYSIS W SPECIFIC [id number] 21:09:00 Test Item Value Reference Range Interpretation Comments POCT U SP GRAV (test code = . 1.005-1.025 3255) POCT PH U (test code = 3254) 6 mg/dl 5-8 POCT U LEUK EST (test code = trace Negative - Negative 3263) POCT U NIT (test code = 3262) negative Negative - Negative POCT U PROT (test code = 3259) trace Negative - Negative POCT U GLU (test code = 3256) negative Negative - Negative POCT U KETONE (test code = 3258) negative Negative - Negative POCT U UROBILI (test code = . 0.2-1 3260) POCT U BILI (test code = 3261) . Negative - Negative POCT U BLD (test code = 3257) negative Negative - Negative POCT U COLOR (test code = 3266) POCT U APPEAR (test code = 3267) NPI:[id number] URINALYSIS W SPECIFIC [id number] 21:09:00 Test Item Value Reference Range Interpretation Comments POCT U SP GRAV (test code = . 1.005-1.025 3255) POCT PH U (test code = 3254) 6 mg/dl 5-8 POCT U LEUK EST (test code = trace Negative - Negative 3263) POCT U NIT (test code = 3262) negative Negative - Negative POCT U PROT (test code = 3259) trace Negative - Negative POCT U GLU (test code = 3256) negative Negative - Negative POCT U KETONE (test code = 3258) negative Negative - Negative POCT U UROBILI (test code = . 0.2-1 3260) POCT U BILI (test code = 3261) . Negative - Negative POCT U BLD (test code = 3257) negative Negative - Negative POCT U COLOR (test code = 3266) POCT U APPEAR (test code = 3267) NPI:[id number] URINALYSIS W SPECIFIC [id number] 21:09:00 Test Item Value Reference Range Interpretation Comments POCT U SP GRAV (test code = . 1.005-1.025 3255) POCT PH U (test code = 3254) 6 mg/dl 5-8 POCT U LEUK EST (test code = trace Negative - Negative 3263) POCT U NIT (test code = 3262) negative Negative - Negative POCT U PROT (test code = 3259) trace Negative - Negative POCT U GLU (test code = 3256) negative Negative - Negative POCT U KETONE (test code = 3258) negative Negative - Negative POCT U UROBILI (test code = . 0.2-1 3260) POCT U BILI (test code = 3261) . Negative - Negative POCT U BLD (test code = 3257) negative Negative - Negative POCT U COLOR (test code = 3266) POCT U APPEAR (test code = 3267) NPI:[id number] URINALYSIS W SPECIFIC [id number] 21:09:00 Test Item Value Reference Range Interpretation Comments POCT U SP GRAV (test code = . 1.005-1.025 3255) POCT PH U (test code = 3254) 6 mg/dl 5-8 POCT U LEUK EST (test code = trace Negative - Negative 3263) POCT U NIT (test code = 3262) negative Negative - Negative POCT U PROT (test code = 3259) trace Negative - Negative POCT U GLU (test code = 3256) negative Negative - Negative POCT U KETONE (test code = 3258) negative Negative - Negative POCT U UROBILI (test code = . 0.2-1 3260) POCT U BILI (test code = 3261) . Negative - Negative POCT U BLD (test code = 3257) negative Negative - Negative POCT U COLOR (test code = 3266) POCT U APPEAR (test code = 3267) NPI:[id number] with [id number] 02:38:31 Test Item Value Reference Range Interpretation Comments WBC (test code = See_Comment [Automated message] 6690-2) The system whic h generated this result transmitted ref erence range: 4.30 - 1 1.10 10*3/?L. The re ference range was not u sed to interpret this result as normal/abnor mal. RBC (test code = See_Comment [Automated message] 789-8) The system [employer] generated this result transmitted ref erence range: 3.93 - 5 .25 10*6/?L. The re ference range was not u sed to interpret this result as normal/abnor mal. HGB (test code = 11.9 g/dL 11.6-15.0 718-7) HCT (test code = 37.2 % 35.7-45.2 4544-3) MCV (test code = 90.3 fL 80.6-95.5 787-2) MCH (test code = 28.9 pg 25.9-32.8 785-6) MCHC (test code = 32.0 g/dL 31.6-35.1 786-4) RDW-SD (test code 43.0 fL 39.0-49.9 = 74058-8) RDW-CV (test code 13.1 % 12.0-15.5 = 788-0) PLT (test code = See_Comment [Automated message] 777-3) The system [employer] generated this result transmitted ref erence range: 166 - 35 8 10*3/?L. The re ference range was not u sed to interpret this result as normal/abnor mal. MPV (test code = 10.0 fL 9.5-12.9 13104-6) NRBC/100 WBC (test See_Comment [Automat ed message] code = 5176578719) The syste m which generated this result transmitted ref erence range: 0.0 - 10 .0 /100 WBCs. The refer ence range was not u sed to interpret this result as normal/abnor mal. NRBC x10^3 (test <0.01 See_Comment [Automated message] code = 9309954833) The syste m which generated this result transmitted ref erence range: 10*3/?L. The reference range was not used to interpr et this result as normal/abnormal . GRAN MAT (NEUT) % 66.1 % (test code = 770-8) IMM GRAN % (test 0.30 % code = 6398785074) LYMPH % (test code 20.4 % = 736-9) MONO % (test code 9.4 % = 5905-5) EOS % (test code = 3.1 % 713-8) BASO % (test code 0.7 % = 706-2) GRAN MAT 5.80 10*3/uL 1.88-7.09 x10^3(ANC) (test code = 3164473228) IMM GRAN x10^3 0.03 10*3/uL 0.00-0.06 (test code = 3778044031) LYMPH x10^3 (test 1.79 10*3/uL 1.32-3.29 code = 731-0) MONO x10^3 (test 0.82 10*3/uL 0.33-0.92 code = 742-7) EOS x10^3 (test 0.27 10*3/uL 0.03-0.39 code = 711-2) BASO x10^3 (test 0.06 10*3/uL 0.01-0.07 code = 704-7) NPI:[id number] 1 Hour Post [id number] 02:37:30 Test Item Value Reference Range Interpretation Comments GLUC 1 HR (test code = 8420893048) 134 mg/dL 120-170 Lab Interpretation (test code = Normal 92366-0) NPI:[id number] URINALYSIS W SPECIFIC [id number] 19:44:00 Test Item Value Reference Range Interpretation Comments POCT U SP GRAV (test code = 3255) . 1.005-1.025 POCT PH U (test code = 3254) . 5-8 POCT U LEUK EST (test code = 3263) . Negative - Negative POCT U NIT (test code = 3262) . Negative - Negative POCT U PROT (test code = 3259) Trace Negative - Negative POCT U GLU (test code = 3256) Neg Negative - Negative POCT U KETONE (test code = 3258) . Negative - Negative POCT U UROBILI (test code = 3260) . 0.2-1 POCT U BILI (test code = 3261) . Negative - Negative POCT U BLD (test code = 3257) . Negative - Negative POCT U COLOR (test code = 3266) POCT U APPEAR (test code = 3267) NPI:[id number] URINALYSIS W SPECIFIC [id number] 18:50:00 Test Item Value Reference Range Interpretation Comments POCT U SP GRAV (test code = 3255) . 1.005-1.025 POCT PH U (test code = 3254) . 5-8 POCT U LEUK EST (test code = 3263) . Negative - Negative POCT U NIT (test code = 3262) . Negative - Negative POCT U PROT (test code = 3259) Trace Negative - Negative POCT U GLU (test code = 3256) Neg Negative - Negative POCT U KETONE (test code = 3258) . Negative - Negative POCT U UROBILI (test code = 3260) . 0.2-1 POCT U BILI (test code = 3261) . Negative - Negative POCT U BLD (test code = 3257) . Negative - Negative POCT U COLOR (test code = 3266) POCT U APPEAR (test code = 3267) NPI:[id number] URINALYSIS W SPECIFIC [id number] 18:50:00 Test Item Value Reference Range Interpretation Comments POCT U SP GRAV (test code = 3255) . 1.005-1.025 POCT PH U (test code = 3254) . 5-8 POCT U LEUK EST (test code = 3263) . Negative - Negative POCT U NIT (test code = 3262) . Negative - Negative POCT U PROT (test code = 3259) Trace Negative - Negative POCT U GLU (test code = 3256) Neg Negative - Negative POCT U KETONE (test code = 3258) . Negative - Negative POCT U UROBILI (test code = 3260) . 0.2-1 POCT U BILI (test code = 3261) . Negative - Negative POCT U BLD (test code = 3257) . Negative - Negative POCT U COLOR (test code = 3266) POCT U APPEAR (test code = 3267) NPI:[id number] URINALYSIS W SPECIFIC [id number] 20:26:00 Test Item Value Reference Range Interpretation Comments POCT U SP GRAV (test code = 3255) na 1.005-1.025 POCT PH U (test code = 3254) 6 mg/dl 5-8 POCT U LEUK EST (test code = neg Negative - Negative 3263) POCT U NIT (test code = 3262) neg Negative - Negative POCT U PROT (test code = 3259) neg Negative - Negative POCT U GLU (test code = 3256) neg Negative - Negative POCT U KETONE (test code = 3258) neg Negative - Negative POCT U UROBILI (test code = 3260) na 0.2-1 POCT U BILI (test code = 3261) na Negative - Negative POCT U BLD (test code = 3257) neg Negative - Negative POCT U COLOR (test code = 3266) na POCT U APPEAR (test code = 3267) na NPI:[id number] URINALYSIS W/O SPECIFIC [id number] 22:07:00 Test Item Value Reference Range Interpretation Comments POCT PH U (test code = 3254) 5 mg/dl 5-8 POCT U LEUK EST (test code = trace Negative - Negative 3263) POCT U NIT (test code = 3262) neg Negative - Negative POCT U PROT (test code = 3259) trace Negative - Negative POCT U GLU (test code = 3256) neg Negative - Negative POCT U KETONE (test code = 3258) neg Negative - Negative POCT U BLD (test code = 3257) neg Negative - Negative Lab Interpretation (test code = Abnormal 55121-7) NPI:[id number] URINALYSIS W/O SPECIFIC [id number] 22:07:00 Test Item Value Reference Range Interpretation Comments POCT PH U (test code = 3254) 5 mg/dl 5-8 POCT U LEUK EST (test code = trace Negative - Negative 3263) POCT U NIT (test code = 3262) neg Negative - Negative POCT U PROT (test code = 3259) trace Negative - Negative POCT U GLU (test code = 3256) neg Negative - Negative POCT U KETONE (test code = 3258) neg Negative - Negative POCT U BLD (test code = 3257) neg Negative - Negative Lab Interpretation (test code = Abnormal 60331-3) NPI:[id number] URINALYSIS W/O SPECIFIC [id number] 22:07:00 Test Item Value Reference Range Interpretation Comments POCT PH U (test code = 3254) 5 mg/dl 5-8 POCT U LEUK EST (test code = trace Negative - Negative 3263) POCT U NIT (test code = 3262) neg Negative - Negative POCT U PROT (test code = 3259) trace Negative - Negative POCT U GLU (test code = 3256) neg Negative - Negative POCT U KETONE (test code = 3258) neg Negative - Negative POCT U BLD (test code = 3257) neg Negative - Negative Lab Interpretation (test code = Abnormal 66667-0) NPI:[id number] 22:03:00 Test Item Value Reference Range Interpretation Comments POCT PREG (test code = 1605) Positive On board controls acceptable with C Yes Line (test code = 3574) POCT PREG LOT # (test code = 3575) yes POCT PREG TEST DATE (test code = 3576) NPI:[id number] 22:03:00 Test Item Value Reference Range Interpretation Comments POCT PREG (test code = 1605) Positive On board controls acceptable with C Yes Line (test code = 3574) POCT PREG LOT # (test code = 3575) yes POCT PREG TEST DATE (test code = 3576) NPI:[id number] 22:03:00 Test Item Value Reference Range Interpretation Comments POCT PREG (test code = 1605) Positive On board controls acceptable with C Yes Line (test code = 3574) POCT PREG LOT # (test code = 3575) yes POCT PREG TEST DATE (test code = 3576)
[2022-04-07 20:41] LABS: Absolute Lymphocytes (CBC) 2.7 K/uL (0.7-4.9); Hematocrit 38.8 % (36.0-45.0); Lymphocytes % 27.8 % (15.3-44.8); MPV 7.6 fL (7.6-11.3); RBC Red Blood Cell Count 4.52 M/uL (3.86-4.86)
[2022-04-07 20:53] LABS: Urine Blood 2+ (Negative); Urine Glucose Negative (Negative); Urine Protein Negative (Negative); Urine Specific Gravity 1.025 (1.005-1.030)
[2022-04-07 20:59] LABS: BUN Blood Urea Nitrogen 17 mg/dL (7-18); Bicarbonate 24 mmol/L (21-32); Glucose Level 94 mg/dL (74-106); Potassium 3.2 mmol/L (3.5-5.1); Sodium Level 137 mmol/L (136-145)
[2022-04-07 21:12] LABS: Urine Specific Gravity/Preg 1.025 (1.005-1.030)
[2022-04-07] MEDS ORDERED: NA CHLORIDE 0.9% 1,000 ML ONE (21:21)
[2022-04-07 22:21] LABS: HCG, Quantitative 1414 mIU/mL (1-3)
--- NOTE | 2022-04-07 23:01 | RAD REPORT ---
EXAM DESCRIPTION: US - Transvaginal OB - 04/07/2022 10:31 pm CLINICAL HISTORY: VAGINAL BLEEDING COMPARISON: OB Limited dated 04/07/2022 FINDINGS: Gestational sac identified with pole now in the cervix. The gestational sac measures 6.9 cm. Yolk sac measures 5 mm. The left ovary was visualized measuring 4 x 2.3 x 3.5 cm with volume of 17 cc. Blood flow is present. Endometrial echo complex measures 7 millimeters. The right ovary was not visualized . IMPRESSION: Gestational sac in the cervix consistent with failed first trimester .
--- NOTE | 2022-04-07 23:02 | RAD REPORT ---
EXAM DESCRIPTION: US - OB Limited - 04/07/2022 10:31 pm CLINICAL HISTORY: BLEEDING COMPARISON: No comparisons FINDINGS: Gestational sac identified with pole now in the cervix. The gestational sac measures 6.9 cm. Yolk sac measures 5 mm. The left ovary was visualized measuring 4 x 2.3 x 3.5 cm with volume of 17 cc. Blood flow is present. Endometrial echo complex measures 7 millimeters. The right ovary was not visualized . IMPRESSION: Findings consistent with failed first trimester . The gestational sac is identi fied at the cervix. Suggest clinical correlation to ensure passage.
--- NOTE | 2022-04-08 00:37 | ER ---
Nurse's Notes [facility] Name: Maria C Stokes Age: 31 yrs Sex: Female : 1990 Arrival Date: 04/07/2022 Time: 19:07 Bed 9 Private MD: Diagnosis: Complete or unspecified spontaneous without complication Presentation: 04/07 19:42 Chief complaint: Patient states: she has a 10 month old baby and is but bb yesterday she started having heavy vaginal bleeding with clots. Coronavirus screen: At this time, the client does not indicate any symptoms associated with coronavirus-19. Ebola Screen: No symptoms or risks identified at this time. Initial Sepsis Screen: Does the patient meet any 2 criteria? No. Patient's initial sepsis screen is negative. Does the patient have a suspected source of infection? No. Patient's initial sepsis screen is negative. Risk Assessment: Do you want to hurt yourself or someone else? Patient reports no desire to harm self or others. Onset of symptoms was April 06, 2022. 19:42 Method Of Arrival: Wheelchair bb 19:42 Acuity: JM 3 bb Triage Assessment: 19:47 General: Appears uncomfortable, Behavior is cooperative, anxious. Pain: Complains of bb pain in abdomen Pain currently is 5 out of 10 on a pain scale. Neuro: Level of Consciousness is awake, alert, obeys commands, Oriented to person, place, time, situation. Cardiovascular: Capillary refill < 3 seconds Patient's skin is warm and dry. Respiratory: Respiratory effort is unlabored, Respiratory pattern is regular. GI: Abdomen is non-distended, Reports lower abdominal pain. : Reports vaginal bleeding that is with clots, heavy flow. Derm: Skin is pink, warm \T\ dry. Musculoskeletal: Circulation, motion, and sensation intact. 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 - Social history:: Smoking status: Patient denies any tobacco usage or history of. Screenin:28 Abuse screen: Denies threats or abuse. Nutritional screening: No deficits noted. bb Tuberculosis screening: No symptoms or risk factors identified. Fall Risk None identified. Assessment: 20:00 General: Appears uncomfortable, Behavior is cooperative, anxious. Neuro: Level of bb Consciousness is awake, alert, obeys commands, Oriented to person, place, time, situation. Cardiovascular: Capillary refill < 3 seconds Patient's skin is warm and dry. Respiratory: Respiratory effort is even, unlabored, Respiratory pattern is regular. GI: Abdomen is round. : Reports vaginal bleeding that is with clots, heavy flow. Derm: Skin is pink, warm \T\ dry. Musculoskeletal: Circulation, motion, and sensation intact. pt was in bathroom and had a large clot with dark blood on the floor pt was moved to a room immediately. 21:00 Reassessment: Patient is alert, oriented x 3, equal unlabored respirations, skin bb warm/dry/pink. pt resting quietly, family at bedside. 22:30 Reassessment: Patient is alert, oriented x 3, equal unlabored respirations, skin bb warm/dry/pink. pt awaiting diagnostic results. IV site intact with no erythema or edema noted. 23:27 Reassessment: Patient is alert, oriented x 3, equal unlabored respirations, skin bb warm/dry/pink. awaiting pelvic exam by Dr Florence. 04/08 00:59 Reassessment: Patient is alert, oriented x 3, equal unlabored respirations, skin bb warm/dry/pink. pt verbalized understanding of and agrees to plan of care discharge instructions given pt ambulated with steady gait to exit accompanied by family. Vital Signs: 04/07 19:42 BP 120 / 77; Pulse 92; Resp 18 S; Temp 99.1; Pulse Ox 98% on R/A; Weight 66.68 kg (R); bb Height 5 ft. 7 in. (170.18 cm) (R); Pain 10/10; 21:00 BP 110 / 65; Pulse 87; Resp 16 S; Pulse Ox 98% on R/A; bb 22:30 BP 117 / 70; Pulse 90; Resp 16 S; Pulse Ox 98% on R/A; bb 23:27 BP 121 / 68; Pulse 98; Resp 16 S; Pulse Ox 100% on R/A; bb 04/08 01:00 BP 113 / 85; Pulse 78; Resp 16 S; Pulse Ox 98% on R/A; bb 04/07 19:42 Body Mass Index 23.02 (66.68 kg, 170.18 cm) bb ED Course: 04/07 19:07 Patient arrived in ED. kz 19:47 Triage completed. bb 19:47 Arm band placed on Patient placed in waiting room, Patient notified of wait time. bb 20:03 Christiano Florence MD is Attending Physician. 7 20:03 Placed in gown. Bed in low position. Call light in reach. Side rails up X 1. Adult w/ wm patient. Pulse ox on. NIBP on. 20:06 Warm blanket given. wm 20:22 Inserted saline lock: 20 gauge in right antecubital area, using aseptic technique. wm Blood collected. 20:56 Urine collected: straight cath specimen, cloudy, blood tinged. 21:18 Inés Vera, RN is Primary Nurse. bb 22:31 OB Limited In Process Unspecified. EDMS 22:33 US Transvaginal Ob In Process Unspecified. EDMS 04/08 00:35 Tl Griffith MD is Referral Physician. 7 00:59 Assist provider with pelvic exam: Set up pelvic tray. Performed by Christiano saldivar Patient tolerated well. IV discontinued, intact, bleeding controlled, No redness/swelling at site. Pressure dressing applied. Administered Medications: 04/07 21:18 Drug: NS 0.9% 1000 ml Route: IV; Rate: 1000 ml; Site: right antecubital; bb 22:20 Follow up: IV Status: Completed infusion; IV Intake: 1000ml bb Intake: 22:20 IV: 1000ml; Total: 1000ml. bb Outcome: 04/08 00:36 Discharge ordered by . 7 01:00 Discharged to home ambulatory, with family. bb 01:00 Condition: stable 01:00 Discharge instructions given to patient, Instructed on discharge instructions, follow up and referral plans. Demonstrated understanding of instructions, follow-up care. 01:00 Patient left the ED. bb Signatures: Dispatcher [employer] EDKY Inés Vera RN RN Christiano Rutledge MD MD [facility] Julia Mancilla, [place] kz
--- NOTE | 2022-04-08 00:37 | EDPHYS ---
Physician Documentation [facility] Name: Maria C Stokes Age: 31 yrs Sex: Female : 1990 Arrival Date: 04/07/2022 Time: 19:07 Bed 9 Private MD: ED Physician Christiano Florence HPI: 04/07 20:14 This 31 yrs old Female presents to ER via Wheelchair with complaints of mh7 Vaginal Bleeding. 20:14 The patient presents with vaginal bleeding that is heavy, with clots. Onset: The mh7 symptoms/episode began/occurred 2 day(s) ago. Modifying factors: The symptoms are alleviated by nothing, the symptoms are aggravated by nothing. Associated signs and symptoms: Pertinent positives: cramping, Pertinent negatives: constipation, diarrhea, dyspareunia, dysuria, fever, hematuria, nausea, urinary frequency, vaginal discharge, vomiting. Severity of symptoms: At their worst the symptoms were moderate, yesterday, in the emergency department the symptoms are unchanged. The patient is sexually active, reportedly has a single partner, does not use protection during intercourse. 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 - Social history:: Smoking status: Patient denies any tobacco usage or history of. ROS: 20:14 Constitutional: Negative for fever, chills, and weight loss, Eyes: Negative for injury, mh7 pain, redness, and discharge, ENT: Negative for injury, pain, and discharge, Neck: Negative for injury, pain, and swelling, Cardiovascular: Negative for chest pain, palpitations, and edema, Respiratory: Negative for shortness of breath, cough, wheezing, and pleuritic chest pain, Abdomen/GI: Negative for abdominal pain, nausea, vomiting, diarrhea, and constipation, Back: Negative for injury and pain, MS/Extremity: Negative for injury and deformity, Skin: Negative for injury, rash, and discoloration, Neuro: Negative for headache, weakness, numbness, tingling, and seizure, Psych: Negative for depression, anxiety, suicide ideation, homicidal ideation, and hallucinations, Allergy/Immunology: Negative for hives, rash, and allergies, Endocrine: Negative for neck swelling, polydipsia, polyuria, polyphagia, and marked weight changes, Hematologic/Lymphatic: Negative for swollen nodes, abnormal bleeding, and unusual bruising. Exam: 20:14 Constitutional: This is a well developed, well nourished patient who is awake, alert, mh7 and in no acute distress. Head/Face: Normocephalic, atraumatic. Eyes: Pupils equal round and reactive to light, extra-ocular motions intact. Lids and lashes normal. Conjunctiva and sclera are non-icteric and not injected. Cornea within normal limits. Periorbital areas with no swelling, redness, or edema. Neck: Trachea midline, no thyromegaly or masses palpated, and no cervical lymphadenopathy. Supple, full range of motion without nuchal rigidity, or vertebral point tenderness. No Meningismus. Chest/axilla: Normal chest wall appearance and motion. Nontender with no deformity. No lesions are appreciated. Cardiovascular: Regular rate and rhythm with a normal S1 and S2. No gallops, murmurs, or rubs. Normal PMI, no JVD. No pulse deficits. Respiratory: Lungs have equal breath sounds bilaterally, clear to auscultation and percussion. No rales, rhonchi or wheezes noted. No increased work of breathing, no retractions or nasal flaring. Skin: Warm, dry with normal turgor. Normal color with no rashes, no lesions, and no evidence of cellulitis. MS/ Extremity: Pulses equal, no cyanosis. Neurovascular intact. Full, normal range of motion. Neuro: Awake and alert, GCS 15, oriented to person, place, time, and situation. Cranial nerves II-XII grossly intact. Motor strength 5/5 in all extremities. Sensory grossly intact. Cerebellar exam normal. Normal gait. Psych: Awake, alert, with orientation to person, place and time. Behavior, mood, and affect are within normal limits. 20:14 Abdomen/GI: Soft, non-tender, with normal bowel sounds. No distension or tympany. No mh7 guarding or rebound. No evidence of tenderness throughout. Back: No spinal tenderness. No costovertebral tenderness. Full range of motion. 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 00:27 : Tissue and clots removed from vaginal vault, no active bleeding. [facility] Vital Signs: 04/07 19:42 BP 120 / 77; Pulse 92; Resp 18 S; Temp 99.1; Pulse Ox 98% on R/A; Weight 66.68 kg (R); bb Height 5 ft. 7 in. (170.18 cm) (R); Pain 10/10; 21:00 BP 110 / 65; Pulse 87; Resp 16 S; Pulse Ox 98% on R/A; bb 22:30 BP 117 / 70; Pulse 90; Resp 16 S; Pulse Ox 98% on R/A; bb 23:27 BP 121 / 68; Pulse 98; Resp 16 S; Pulse Ox 100% on R/A; 04/08 01:00 BP 113 / 85; Pulse 78; Resp 16 S; Pulse Ox 98% on R/A; bb 04/07 19:42 Body Mass Index 23.02 (66.68 kg, 170.18 cm) MDM: 00:33 Differential diagnosis: dysfunctional uterine bleeding, dysmenorrhea, ectopic mh7 , endometriosis, menorrhea, ruptured ectopic , uterine fibroids, urinary tract infection. Data reviewed: vital signs, nurses notes, lab test result(s), Beta HCG: CBC, electrolytes, urinalysis, UPT: positive radiologic studies, ultrasound. Data interpreted: Pulse oximetry: on room air is 100 %. Interpretation: normal. Counseling: I had a detailed discussion with the patient and/or guardian regarding: the historical points, exam findings, and any diagnostic results supporting the discharge/admit diagnosis, lab results, radiology results, the need for outpatient follow up, an OB/Gyne specialist, to return to the emergency department if symptoms worsen or persist or if there are any questions or concerns that arise at home. Response to treatment: the patient's symptoms have resolved after treatment, the patient's blood pressure is in an acceptable range, mental status has returned to baseline, the patient no longer shows bradycardia, the patient is not short of breath, the patient is not tachycardic, the patient's pain is gone, the patient's temperature has normalized. 00:36 Patient medically screened. [facility] 04/07 20:04 Order name: Abo/rh Typing; Complete Time: 21:45 [facility] 04/07 20:04 Order name: Basic Metabolic Panel; Complete Time: 22:26 [facility] 04/07 20:04 Order name: CBC with Diff; Complete Time: 21:45 [facility] 04/07 20:53 Order name: Urine Dipstick-Ancillary; Complete Time: 20:55 [facility] 04/07 20:57 Order name: Urine --Ancillary (enter results); Complete Time: 21:14 [facility] 04/07 20:04 Order name: IV Saline Lock; Complete Time: 20:26 [facility] 04/07 20:04 Order name: Labs collected and sent; Complete Time: 20:26 [facility] 04/07 20:04 Order name: NPO; Complete Time: 23:15 [facility] 04/07 20:04 Order name: Urine Dipstick-Ancillary (obtain specimen); Complete Time: 20:55 [facility] 04/07 20:55 Order name: US Transvaginal Ob; Complete Time: 23:03 [facility] 04/07 21:46 Order name: HCG, Quantitative; Complete Time: 22:26 [facility] 04/07 22:31 Order name: OB Limited; Complete Time: 23:03 [facility] 04/07 20:04 Order name: Urine Test (obtain specimen); Complete Time: 20:56 [facility] 04/07 22:26 Order name: Pelvic Exam Setup; Complete Time: 23:35 [facility] Administered Medications: 04/07 21:18 Drug: NS 0.9% 1000 ml Route: IV; Rate: 1000 ml; Site: right antecubital; bb 22:20 Follow up: IV Status: Completed infusion; IV Intake: 1000ml bb Disposition Summary: 04/08/22 00:36 Discharge Ordered Location: Home [facility] Problem: new [facility] Symptoms: have improved [facility] Condition: Stable [facility] Diagnosis - Complete or unspecified spontaneous without complication mh7 Followup: mh7 - With: Private Physician - When: 1 - 2 days - Reason: Worsening of condition, Recheck today's complaints, Continuance of care, Re-evaluation by your physician Followup: 7 - With: Tl Griffith MD - When: 1 - 2 days - Reason: Worsening of condition, Recheck today's complaints Discharge Instructions: - Discharge Summary Sheet [facility] - Miscarriage, [id number] [facility] Forms: - Medication Reconciliation Form [facility] - Thank You Letter [facility] - Antibiotic Education [facility] - Prescription Opioid Use [facility] Signatures: Dispatcher [employer] Inés Marc RN RN Christiano Rutledge MD MD [facility] Corrections: (The following items were deleted from the chart) 21:46 20:14 QUANTITATIVE HCG+C.LAB.BRZ ordered. JERICAUT JERICAUT
[2022-04-08 01:47] VITALS: TEMP 99.1
[2022-04-08 02:02] VITALS: BP 113/85; O2SAT 98
== END 2022-04-08 01:00 | disposition home or self-care (01) ==
LOC: ER 19:07
DX: O03.9 Complete or unspecified spontaneous abortion without complication (principal)
CPT/HCPCS: 85025; 80048; 36415; 86900; 81025; 86901; 88305; 84702; 81003; 76815; 76817; 96360; 99284; J7030

== ENCOUNTER 2025-09-23 23:23 | Emergency (ER) | payer OTHER, SELFPAY ==
[2025-09-23 23:49] LABS: Absolute Lymphocytes (CBC) 3.2 K/uL (0.7-4.9); Hematocrit 37.3 % (36.0-45.0); Hemoglobin 12.3 g/dL (12.0-15.0); MCH 27.7 pg (27.0-35.0); MCHC 32.9 g/dL (32.0-36.0); MCV 84.0 fL (80-100); MPV 7.4 fL (7.6-11.3); Nucleated RBC Absolute Count 0.0 (0-0); Nucleated Red Blood Cells % 0.0 % (0-0); RBC Red Blood Cell Count 4.44 M/uL (3.86-4.86); White Blood Count 15.90 thou/uL (4.3-10.9)
[2025-09-23 23:50] LABS: Urine Microscopic Reflex YN NO UMIC
[2025-09-24 00:05] LABS: ALT/SGPT 25.0 U/L (13-56); AST/SGOT 21.0 U/L (15-37); Albumin 3.7 g/dL (3.4-5.0); Albumin/Globulin Ratio 1.0 (1.1-1.8); Alkaline Phosphatase 67.0 U/L (45-117); Anion Gap 6.3 mEq/L (5.0-15.0); BUN Blood Urea Nitrogen 21.0 mg/dL (7-18); Globulin 3.6 g/dL (2.3-3.5); Glucose Level 87.0 mg/dL (74-106); Lipase 48.0 U/L (13-75); Potassium 3.3 mEq/L (3.5-5.1)
[2025-09-24] MEDS ORDERED: ONDANSETRON 4 MG/2 ML VIAL ONE (00:06)
[2025-09-24] MEDS ORDERED: HYDROMORPHONE HCL 0.5 MG/0.5 ML INJ ONE ×2 (00:06→03:23)
--- NOTE | 2025-09-24 01:32 | EDPHYS ---
Physician Documentation [facility] Name: Maria C Stokes Age: 35 yrs Sex: Female : 1990 Arrival Date: 09/23/2025 Time: 23:23 Bed 6 Private MD: ED Physician Elmer Hernandez HPI: 09/24 00:05 This 35 yrs old Female presents to ER via Ambulatory with complaints of tt7 Abdominal Swelling. 00:05 Patient reports for the last 2 days she has been having increasing abdominal swelling tt7 and lower abdominal cramping pain that is intermittent, she reports the pain has been worse after having sexual intercourse, she denies any fever, vomiting, vaginal bleeding, or vaginal discharge, she has no significant past medical history. 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 - Infectious Disease History:: Denies. - Social history:: Smoking status: Patient denies any tobacco usage or history of. ROS: 00:06 Constitutional: negative for fever. Cardiovascular: negative for chest pain. tt7 Respiratory: negative for shortness of breath. MS/Extremity: negative for injury and deformity. Skin: negative for rash. Neuro: negative for focal weakness. 00:06 Abdomen/GI: Positive for abdominal pain, Negative for nausea and vomiting, Exam: 00:06 Constitutional: vital signs reviewed, well appearing. Head/Face: normocephalic, tt7 atraumatic. Eyes: no conjunctival injection, anicteric sclerae. ENT: mucus membranes moist. Neck: trachea midline, no JVD, no meningismus. Chest/axilla: normal chest wall appearance and motion, nontender, no crepitus. Cardiovascular: regular rate and rhythm, no murmurs, no rubs, no lower extremity edema. Respiratory: normal respiratory effort, no accessory muscle use, lungs CTAB. Abdomen/GI: soft, mild epigastric tenderness to palpation, no guarding or rebound, negative Marrero's sign, no McBurney point tenderness. Back: normal ROM. Skin: warm, dry, intact, normal turgor, normal color, no rash. MS/ Extremity: normal ROM of extremities, no gross deformities. Neuro: alert and oriented with appropriate mental status, normal speech, follows commands, no focal neurologic deficits. Vital Signs: 09/23 23:35 BP 121 / 74; Pulse 93; Resp 18; Temp 97.9; Pulse Ox 99% ; Weight 78.02 kg; Height 5 ft. br2 7 in. ; Pain /; 23:46 BP 111 / 69; Pulse 91; Resp 20; Pulse Ox 98% on R/A; at6 09/24 01:05 BP 111 / 74; Pulse 71; Resp 17; Temp 97.9; Pulse Ox 100% ; Pain 1/10; bm8 02:41 BP 106 / 66; Pulse 79; Resp 18; Temp 97.9; Pulse Ox 100% ; Pain 3/10; bm8 09/23 23:35 Body Mass Index 26.94 (78.02 kg, 170.18 cm) br2 09/23 23:35 Pain Scale: Adult br2 09/24 01:05 Pain Scale: Adult bm8 02:41 Pain Scale: Adult bm8 Madison Coma Score: 01:05 Eye Response: spontaneous(4). Motor Response: obeys commands(6). Verbal Response: bm8 oriented(5). Total: 15. 01:05 Eye Response: spontaneous(4). Motor Response: obeys commands(6). Verbal Response: bm8 oriented(5). Total: 15. 02:41 Eye Response: spontaneous(4). Motor Response: obeys commands(6). Verbal Response: bm8 oriented(5). Total: 15. MDM: 09/23 23:36 Medical Screening Exam initiated tt7 09/24 00:07 Differential Diagnosis Gastritis, pancreatitis, , cystitis, appendicitis, tt7 diverticulitis. Data reviewed: vital signs, nurses notes, lab test result(s), radiologic studies. 00:42 ED course: Patient well-appearing, vital signs stable, abdominal exam benign, tt7 test ordered and negative, standard abdominal pain laboratory studies ordered, urinalysis ordered, urinalysis without evidence of infection, complete blood count demonstrates a leukocytosis of almost 16,000, will obtain CT imaging of the abdomen/pelvis to determine source of the abdominal pain and if there could be an intra-abdominal infectious etiology causing this leukocytosis. 01:33 ED course: I independently interpreted the patient's CT imaging of the abdomen/pelvis, tt7 there appears to be moderate amount of hemoperitoneum, I do not see active extravasation of contrast. 01:34 ED course: I spoke with the radiologist interpreting patient's CT imaging of the tt7 abdomen/pelvis, and he sees a moderate amount of hemoperitoneum likely due to a ruptured ovarian cyst, no active extravasation of contrast seen but this image was done in the portal venous phase, currently her blood pressure is 104/69, will continue to monitor her hemodynamics, I am giving a dose of Zosyn given her leukocytosis and will obtain a lactate to assess for evidence of shock, transfer initiated to facility that has gynecology services. 01:40 ED course: Patient updated on the results of her laboratory studies and CT imaging, I tt7 discussed my recommendation for transfer to facility with gynecology services, patient is in agreement with this plan. 02:31 ED course: I spoke with Dr. Herrera Estrada regarding the patient's presentation, tt7 laboratory test results, vitals, and imaging results at [facility] who accepts the patient for transfer. 09/23 23:36 Order name: CBC with Diff; Complete Time: 23:59 tt7 09/23 23:36 Order name: CMP; Complete Time: 00:26 tt7 09/23 23:36 Order name: Lipase; Complete Time: 00:26 tt7 09/23 23:36 Order name: Test, Serum; Complete Time: 00:26 tt7 09/23 23:36 Order name: UA Rfx Kalin Cult if indicated tt09/24 01:30 Order name: Lactate w/ 2H reflex if indic.; Complete Time: 02:09 tt7 09/24 00:00 Order name: CT Abd/Pelvis - IV Contrast Only tt7 09/23 23:36 Order name: IV Saline Lock; Complete Time: 23:39 tt7 09/23 23:36 Order name: Labs collected and sent; Complete Time: 23:39 tt7 09/24 01:41 Order name: Cardiac monitoring; Complete Time: 02:10 tt7 Administered Medications: 00:21 Drug: HYDROmorphone IVP 0.5 mg IVP once Route: IVP; Site: right antecubital; bm8 01:21 Follow up: Response: Pain is decreased at6 02:42 Follow up: Response: No adverse reaction at6 00:21 Drug: Ondansetron IVP 4 mg IVP once; over 2 minutes Route: IVP; Site: right antecubital;bm8 01:22 Follow up: Response: No adverse reaction at6 02:42 Follow up: Response: No adverse reaction at6 01:41 Drug: Piperacillin-Tazobactam IVPB 4.5 grams IVPB once over 60 mins; (mix in 100 mL NS) at6 Route: IVPB; Infused Over: 60 mins; Site: right antecubital; 02:42 Follow up: Response: No adverse reaction; IV Status: Completed infusion at6 03:30 Drug: HYDROmorphone IVP 0.5 mg IVP once Route: IVP; Site: right antecubital; bm8 03:31 Follow up: Response: Medication Administered at Departure; administeredd at time of bm8 transfer Disposition: 02:34 Co-signature as Attending Physician, Elmer Hernandez DO. tt7 Disposition Summary: 09/24/25 01:32 Transfer Ordered Notes: Transfer Location: Other Acute Care Facility tt7 Reason: Specialty tt7 Condition: Serious tt7 Problem: new tt7 Symptoms: are unchanged tt7 Accepting Physician: Dr. Herrera Estrada(09/24/25 03:32) bm8 Diagnosis - Hemoperitoneum tt7 Forms: - Medication Reconciliation Form tt7 - SBAR form tt7 Signatures: Dispatcher [employer] Adalberto Colunga RN OSMANY bm8 Elmer Hernandez DO DO tt7 Nuvia Hernandez RN RN at6 Corrections: (The following items were deleted from the chart) 02:33 01:32 Dr. rollins tt7 03:32 02:33 Dr. Herrera Estrada tt7 bm8
--- NOTE | 2025-09-24 01:32 | ER ---
Nurse's Notes [facility] Name: Maria C Stokes Age: 35 yrs Sex: Female : 1990 Arrival Date: 09/23/2025 Time: 23:23 Bed 6 Private MD: Diagnosis: Hemoperitoneum Presentation: 09/23 23:35 Chief complaint: Patient states: PT STATES SHE WAS HAVING INTERCOURSE AND HAD SUDDEN br2 ONSET OF PELVIC PAIN. THIS OCCURRED AROUND 1730. PT STATES HE ABDOMEN IS SWOLLEN AND SHE FEELS LIKE SHE IS GOING TO POP. PT STATES SHE HAS BEEN HAVING PAIN WITH URINATION FOR APPROX 3 DAYS AND HAS BEEN TAKING AN ANTIBIOTIC SHE HAS AT HOME. Coronavirus screen: Client denies travel out of the [place] in the last 14 days. Ebola Screen: Patient denies exposure to infectious person. Initial Sepsis Screen: Does the patient meet any 2 criteria? No. Patient's initial sepsis screen is negative. Does the patient have a suspected source of infection? No. Patient's initial sepsis screen is negative. Risk Assessment: Do you want to hurt yourself or someone else? Patient reports no desire to harm self or others. Onset of symptoms was September 23, 2025 at 17:30. 23:35 Method Of Arrival: Ambulatory br2 23:35 Acuity: JM 3 br2 Triage Assessment: 23:36 General: Appears in no apparent distress. comfortable, Behavior is calm, cooperative, bm8 appropriate for age. Pain: Complains of pain in abdomen Pain currently is 6 out of 10 on a pain scale. EENT: No deficits noted. No signs and/or symptoms were reported regarding the EENT system. Neuro: No deficits noted. Level of Consciousness is awake, alert, obeys commands, Oriented to person, place, time, situation, Appropriate for age. Cardiovascular: Denies chest pain. Respiratory: Airway is patent Respiratory effort is even, unlabored, Respiratory pattern is regular, symmetrical. GI: Abdomen is flat, distended, Bowel sounds present X 4 quads. Abdomen is tender to palpation X 4 quads. : Reports burning with urination. Derm: No deficits noted. No signs and/or symptoms reported regarding the dermatologic system. Musculoskeletal: No deficits noted. No signs and/or symptoms reported regarding the musculoskeletal system. 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 - Infectious Disease History:: Denies. - Social history:: Smoking status: Patient denies any tobacco usage or history of. Screenin:06 [facility] ED Fall Risk Assessment (Adult) History of falling in the last 3 months, bm8 including since admission No falls in past 3 months (0 pts) Confusion or Disorientation No (0 pts) Intoxicated or Sedated No (0 pts) Impaired Gait No (0 pts) Mobility Assist Device Used No (0 pt) Altered Elimination No (0 pt) Score/Fall Risk Level 0 - 2 = Low Risk Oriented to surroundings, Maintained a safe environment, Educated pt \T\ family on fall prevention, incl call for assistance when getting out of bed, Assessed \T\ reinforced patient's understanding of fall precautions, Hourly rounding (assess needs \T\ fall precautionary measures) done, Used ambulatory aids as needed (educated on \T\ assisted with), Used gait belt as appropriate. Abuse screen: Denies threats or abuse. Nutritional screening: No deficits noted. Tuberculosis screening: No symptoms or risk factors identified. Assessment: 01:04 Reassessment: Patient appears in no apparent distress at this time. Patient and/or bm8 family updated on plan of care and expected duration. Pain level reassessed. Patient is alert, oriented x 3, equal unlabored respirations, skin warm/dry/pink. awaiting results at this time Patient denies pain at this time. Patient states feeling better. Patient states symptoms have improved. 02:41 Reassessment: Patient appears in no apparent distress at this time. No changes from bm8 previously documented assessment. Patient and/or family updated on plan of care and expected duration. Pain level reassessed. Patient is alert, oriented x 3, equal unlabored respirations, skin warm/dry/pink. Vital Signs: 09/23 23:35 BP 121 / 74; Pulse 93; Resp 18; Temp 97.9; Pulse Ox 99% ; Weight 78.02 kg; Height 5 ft. br2 7 in. ; Pain 6/10; 23:46 BP 111 / 69; Pulse 91; Resp 20; Pulse Ox 98% on R/A; at6 09/24 01:05 BP 111 / 74; Pulse 71; Resp 17; Temp 97.9; Pulse Ox 100% ; Pain 1/10; bm8 02:41 BP 106 / 66; Pulse 79; Resp 18; Temp 97.9; Pulse Ox 100% ; Pain 3/10; bm8 09/23 23:35 Body Mass Index 26.94 (78.02 kg, 170.18 cm) br2 09/23 23:35 Pain Scale: Adult br2 09/24 01:05 Pain Scale: Adult bm8 02:41 Pain Scale: Adult bm8 Kell Coma Score: 01:05 Eye Response: spontaneous(4). Motor Response: obeys commands(6). Verbal Response: bm8 oriented(5). Total: 15. 01:05 Eye Response: spontaneous(4). Motor Response: obeys commands(6). Verbal Response: bm8 oriented(5). Total: 15. 02:41 Eye Response: spontaneous(4). Motor Response: obeys commands(6). Verbal Response: bm8 oriented(5). Total: 15. ED Course: 09/23 23:25 Patient arrived in ED. mr 23:36 Elmer Hernandez DO is Attending Physician. tt7 23:36 Adalberto Carpio, RN is Primary Nurse. bm8 23:39 Triage completed. br2 23:39 Arm band placed on right wrist. bm8 23:46 Inserted saline lock: 20 gauge in right antecubital area, using aseptic technique. at6 09/24 01:05 CT Abd/Pelvis - IV Contrast Only In Process Unspecified. EDMS 01:06 Patient has correct armband on for positive identification. Placed in gown. Bed in low bm8 position. Call light in reach. Side rails up X 1. Client placed on continuous cardiac and pulse oximetry monitoring. NIBP monitoring applied. Pulse ox on. NIBP on. Door closed. Noise minimized. Warm blanket given. Verbal reassurance given. Head of bed elevated. 01:06 No provider procedures requiring assistance completed. bm8 02:31 Initiated transfer with Deena at [facility] \T\[id number], Connected Dr. Hernandez with Dr. Varsha flower at [facility]. Pt accepted by Dr. Maddox to [facility] ER. 02:42 Provided Education on: need for transfer. bm8 02:42 Patient transferred, IV remains in place. bm8 Administered Medications: 00:21 Drug: HYDROmorphone IVP 0.5 mg IVP once Route: IVP; Site: right antecubital; bm8 01:21 Follow up: Response: Pain is decreased at6 02:42 Follow up: Response: No adverse reaction at6 00:21 Drug: Ondansetron IVP 4 mg IVP once; over 2 minutes Route: IVP; Site: right antecubital;bm8 01:22 Follow up: Response: No adverse reaction at6 02:42 Follow up: Response: No adverse reaction at6 01:41 Drug: Piperacillin-Tazobactam IVPB 4.5 grams IVPB once over 60 mins; (mix in 100 mL NS) at6 Route: IVPB; Infused Over: 60 mins; Site: right antecubital; 02:42 Follow up: Response: No adverse reaction; IV Status: Completed infusion at6 03:30 Drug: HYDROmorphone IVP 0.5 mg IVP once Route: IVP; Site: right antecubital; bm8 03:31 Follow up: Response: Medication Administered at Departure; administeredd at time of bm8 transfer Medication: 02:42 VIS not applicable for this client. bm8 Intake: Outcome: 01:32 ER care complete, transfer ordered by . tt7 03:31 Transferred by ground EMS Transfer form completed. X-rays sent w/ patient. Note: [address] 03:31 Condition: stable 03:31 Instructed on the need for transfer, Demonstrated understanding of instructions, follow-up care, medications, 03:32 Patient left the ED. [facility] [place] Signatures: Dispatcher [employer] EDMS CharanjitAkiko, Reg Reg mr Ady Reececa rv1 Adalberto Carpio, RN RN bm8 Obdulia Jimenez RN RN br2 Elmer Hernandez, DO tt7 Nuvia Hernandez RN RN at6 Corrections: (The following items were deleted from the chart) 02:42 02:42 IV discontinued, intact, bleeding controlled, No redness/swelling at site. bm8 Pressure dressing applied, bm8
[2025-09-24] MEDS ORDERED: NA CHLORIDE 0.9% 100 ML ONE (01:33)
[2025-09-24] MEDS ORDERED: PIPERACIL/TAZO 4.5 GM VIAL IV ONE (01:33)
--- NOTE | 2025-09-24 02:08 | RAD REPORT ---
ADDENDUM #1 Addendum: These findings were relayed to Dr. Elmer Hernandez on September 24, 2025 at 1:29 AM. Electronically signed by: Jeffrey Godoy MD 09/24/2025 01:34 AM CDT RP End of Addendum Clinical Indication: IV ONLY Bed Name: 6. Abdominal pain Comparison: July 29, 2020. TECHNIQUE: Helical imaging was performed from diaphragm through the pelvis after IV contrast administ ration with multiplanar reformations obtained. Coronal and sagittal reformats were performed and provided as separate series. IV CONTRAST: IV contrast dose was not provided GI CONTRAST: GI contrast was not administered CT Radiation Dose: DLP = 823.1 mGy-cm All CT scans at this location are performed using dose optimization techniques as appropriate to perf orm the study. Radiation dose reduction technique was utilized including one or more of the following: Automated exp osure control, adjustment of the mA and/or kV according to patient size and use of iterative reconstruction technique. FINDINGS: LOWER CHEST: The visualized lung bases are clear. LIVER: Unremarkable. GALLBLADDER: Unremarkable. INTRAHEPATIC BILE DUCT AND EXTRAHEPATIC BILE DUCT: Unremarkable. PANCREAS: Unremarkable. SPLEEN: Unremarkable. ADRENALS: Unremarkable. KIDNEYS AND URETERS: The renal contours are normal. There is no hydronephrosis. No calcified adriel l stones are noted. No surrounding fat stranding is noted. STOMACH: Evaluation of the stomach and bowel is limited due to lack of oral contrast. No gross abno rmalities of the stomach are noted. BOWEL: The small bowel loops in the abdomen and pelvis appear unremarkable. The colonic loops in the abdomen and pelvis appear unremarkable. APPENDIX: Not well seen on the exam. PERITONEUM AND RETROPERITONEUM: Small amount of ascites is noted throughout the abdomen. Some is note d around the anterior liver and inferior liver. This fluid in the inferior liver lesion measures 30 Hounsfield units. Fluid in the anterior right pelvis measures 40 Hounsfield units. The fluid along th e left pelvic sidewall measures 25 Hounsfield units. These findings are most consistent with hemoperitoneum. No free air is noted. No definite extravasation of contrast is noted on portal venous phase. There is no aortic aneurysm or dissection. PELVIS: The uterus is unremarkable. Hyperdense material is noted within the pelvis and adnexa. This i s consistent with hemoperitoneum, likely from ruptured ovarian cyst or ectopic. Correlation with beta hCG level may be helpful. BLADDER: Unremarkable LYMPH NODES: Unremarkable. OSSEOUS STRUCTURES: No acute abnormality seen. SOFT TISSUES: Unremarkable. IMPRESSION: 1. Findings consistent with [id number] amount of hemoperitoneum. This is most likely from rupt ured ovarian cyst or ectopic. Correlation with beta hCG level may be helpful. Electronically signed by: Jeffrey Godoy MD 09/24/2025 01:23 AM CDT RP Due to temporary technical issues with the PACS/[employer] reporting system, reports are being brenda d by the in-house radiologist without review as a courtesy to ensure prompt reporting the interpreting radiologist is fully responsible for the content of the report. Transcribed Date/Time: 09/24/2025 2:08 AM
[2025-09-24 10:20] VITALS: TEMP 97.9
[2025-09-24 10:27] VITALS: O2SAT 100
[2025-09-24 10:28] VITALS: BP 106/66
== END 2025-09-24 03:32 ==
LOC: ER 23:23
DX: K66.1 Hemoperitoneum (principal)
CPT/HCPCS: 36415; 74177; 80053; 81003; 83605; 83690; 84703; 85025; 96365; 96375; 99285; J1171; J2405; Q9967